=== PATIENT | female | born 1935 | race Caucasian/White ===

== ENCOUNTER 2016-12-25 09:46 | Outpatient (CLI) ==
[2014-02-18 21:38] VITALS: BMI 32.1
== END 2016-12-25 09:47 | disposition home or self-care (01) ==
LOC: RAD 09:46
PROVIDERS: ATTEND Internal Medicine
DX: Z12.31 Encounter for screening mammogram for malignant neoplasm of breast (principal)
CPT/HCPCS: 77067

== ENCOUNTER 2018-02-11 06:48 | Observation (INO) ==
--- NOTE | 2018-02-11 07:25 | ED.PDOC ---
General ED Provider: Dr. RAMYA DODD Chief Complaint: Dizziness Stated Complaint: Profound dizziness with nausea and vomiting. Awakened this AM with Symptoms. Denied Focal Neurological of motor or sensory changes. States room spinning around. No other changes. Time Seen by Physician: 07:15 Mode of Arrival: Ambulance Information Source: Patient, Family Exam Limitations: No limitations Primary Care Provider: LUCIAN RUDD Nursing and Triage Documentation Reviewed and Agree: Yes Does patient meet sepsis criteria?: No System Inflammatory Response Syndrome: Not Applicable Sepsis Protocol: For patient's 13 years and over: Temp is 96.8 and below OR 101 and greater Pulse >90 BPM Resp >20/minute Acutely Altered Mental Status Are patient's symptoms suggestive of a new infection, such as: -Pneumonia -Skin, Soft Tissue -Endocarditis -UTI -Bone, Joint Infection -Implantable Device -Acute Abdominal Infection -Wound Infection -Meningitis -Blood Stream Catheter Infection -Unknown Neurological Complaint Exam - Dizziness Complaint/Exam Last Known Well: Last evening Onset: Sudden Duration: 2 hrs Symptoms Are: Still present Timing: Constant Episodes Lasting: Minutes Initial Severity: Moderate Current Severity: Moderate Character: Reports: Head spinning, Room spinning, Lightheaded, Weak, Dizzy Aggravating: Reports: Position change, Supine to erect, Change in head position Alleviating: Reports: None Associated Signs and Symptoms: Reports: Nausea, Vomiting, Diaphoresis Cardiac Risk Factors: Reports: None CVA Risk Factors: Reports: None Related Surgical History: Reports: None Differential Diagnoses: Labyrinthitis, Meniere's, Metabolic abnormalities Review of Systems - Review Of Systems Constitutional: Reports: No symptoms Eyes: Reports: No symptoms Ears, Nose, Mouth, Throat: Reports: No symptoms Respiratory: Reports: No symptoms Cardiac: Reports: Irregular heart rate GI: Reports: No symptoms : Reports: No symptoms Musculoskeletal: Reports: No symptoms Skin: Reports: No symptoms Neurological: Reports: No symptoms Endocrine: Reports: No symptoms Hematologic/Lymphatic: Reports: No symptoms All Other Systems: Reviewed and Negative Past Medical History - Past Medical History Previously Healthy: Yes Endocrine: Reports: Hypothyroid, Dyslipidemia Cardiovascular: Reports: Hypertension Respiratory: Reports: None Hematological: Reports: None Gastrointestinal: Reports: None Genitourinary: Reports: None Neuro/Psych: Reports: None Musculoskeletal: Reports: None Cancer: Reports: None Last Menstrual Period: UNKNOWN - Surgical History General Surgical History: Reports: None - Family History Family History: Reports: None - Social History Smoking Status: Former smoker Hx Substance Use: No Alcohol Screening: None Lives: Alone - Immunizations Tetanus Shot up to Date: Yes Influenza Vaccine within 12 Months: Yes Physical Exam - Physical Exam Appearance: Well-appearing, No pain distress, Well-nourished Ill-appearing: Moderate Pain Distress: None Eyes: KRISTA, EOMI, Conjunctiva clear ENT: Ears normal, Nose normal, Oropharynx normal Respiratory: Airway patent, Breath sounds clear, Breath sounds equal, Respirations nonlabored Cardiovascular: RRR, Pulses normal, No rub, No murmur GI/: Soft, Nontender, No masses, Bowel sounds normal, No Organomegaly Musculoskeletal: Normal strength, ROM intact, No edema, No calf tenderness Skin: Warm, Dry, Normal color Neurological: Sensation intact, Motor intact, Reflexes intact, Cranial nerves intact, Alert, Oriented Psychiatric: Affect appropriate, Mood appropriate Re-Evaluation - Re-Evaluation Time of Re-Evaluation: 09:15 Status: Improved Vital Signs Stable: Yes Appearance: NAD Lungs: Clear Skin: Warm and Dry Neuro: Alert and Oriented X3 CV: Other (irreg irreg rate) Additional Comments: Dizziness when up Physician Notification - Case Discussed Physician Notified: Dr Rudd Time of Notification: 09:30 (admit on telemetry) Critical Care Note - Critical Care Note Total Time (mins): 60 Course - Course Hematology/Chemistry: 02/11/18 07:05 02/11/18 07:05 Orders, Labs, Meds: Lab Review 02/11/18 02/11/18 02/11/18 06:00 07:05 07:05 WBC 6.48 RBC 3.51 L Hgb 11.0 L Hct 33.9 L MCV 96.6 MCH 31.3 H MCHC 32.4 RDW Coeff of Mookie 13.5 Plt Count 170 Immature Gran % (Auto) 0.3 Neut % (Auto) 59.5 Lymph % (Auto) 31.5 [place] % (Auto) 5.6 Eos % (Auto) 2.5 Baso % (Auto) 0.6 Immature Gran # (Auto) 0.0 Neut # (Auto) 3.9 Lymph # (Auto) 2.0 [place]on # (Auto) 0.4 Eos # (Auto) 0.2 Baso # (Auto) 0.0 ESR 5 Sodium 137.8 Potassium 3.41 L Chloride 105.1 Carbon Dioxide 27.2 Anion Gap 8.91 BUN 25.1 H Creatinine 0.83 Estimated GFR (MDRD) 66.00 BUN/Creatinine Ratio 30.24 Glucose 114.5 H Calcium 10.05 Total Bilirubin 0.53 AST 23.3 ALT 15.6 Alkaline Phosphatase 53.2 Total Protein 6.94 Albumin 4.14 Globulin 2.80 Albumin/Globulin Ratio 1.47 TSH 2.500 Orders Category Date Time Status EKG-(ED ONLY) Stat CARDIO 02/11/18 07:28 Completed IV [ED IV/MEDIPORT/POWERPORT] .ONCE EMERGENCY 02/11/18 07:28 Active CBC W/ AUTO DIFF Stat LAB 02/11/18 07:05 Completed CMP [COMPREHENSIVE METABOLIC PANEL] Stat LAB 02/11/18 07:05 Completed ESR Stat LAB 02/11/18 07:05 Completed TSH [THYROID STIMULATING HORMONE] Stat LAB 02/11/18 06:00 Received UA [URINALYSIS C & S IF INDICATED] Stat LAB 02/11/18 07:29 Uncollected 0.9 % Sodium Chloride [Saline Flush] MEDS 02/11/18 07:28 Active 1 syr IVF PRN PRN Diphenhydramine Inj [Benadryl] MEDS 02/11/18 07:32 Discontinued 25 mg IVP ONCE STA Famotidine Inj [Pepcid] MEDS 02/11/18 07:31 Discontinued 20 mg IVP ONCE STA Ondansetron HCl/Pf [Zofran 4 mg/2 ml] MEDS 02/11/18 07:31 Discontinued 4 mg IVP ONCE STA Ringers Lactated Solution [Lactated Ringers] 1,000 ml MEDS 02/11/18 07:31 Active IV BOLUS CHEST, 1V AP ONLY Stat RADS 02/11/18 07:[address] HEAD W/O CONTRAST Stat RADS 02/11/18 07:28 Completed Medications Generic Name Dose Route Start Last Admin Trade Name Freq PRN Reason Stop Dose Admin Sodium Chloride 1 syr 02/11/18 07:28 02/11/18 07:43 Saline Flush IVF 1 syr PRN PRN Administration To flush IV Discontinued Medications Generic Name Dose Route Start Last Admin Trade Name Freq PRN Reason Stop Dose Admin Diphenhydramine HCl 25 mg 02/11/18 07:32 02/11/18 07:42 Benadryl IVP 02/11/18 07:33 25 mg ONCE STA Administration Famotidine 20 mg 02/11/18 07:31 02/11/18 07:43 Pepcid IVP 02/11/18 07:32 20 mg ONCE STA Administration Lactated Ringer's 1,000 mls @ 500 mls/hr 02/11/18 07:31 02/11/18 07:41 Lactated Ringers IV 02/11/18 09:30 500 mls/hr BOLUS STA Administration Ondansetron HCl 4 mg 02/11/18 07:31 02/11/18 07:41 Zofran 4 Mg/2 Ml IVP 02/11/18 07:32 4 mg ONCE STA Administration Vital Signs: Temp Pulse Resp BP Pulse Ox 02/11/18 06:49 96.6 F L 55 L 20 162/62 H 98 Departure - Departure Time of Disposition: 09:30 Disposition: ADMITTED INPATIENT Discharge Problem: Acute vertigo with vomiting and inability to stand, Vomiting, Atrial fibrillation with controlled ventricular rate Instructions: Vertigo (DC), A-fib (Atrial Fibrillation) (ED) Condition: Fair Pt referred to PMD for follow-up: Yes (Dr Rudd) IPMP verified?: No Additional Instructions: ADMIT ON TELEMETRY SERVICE DR RUDD Allergies/Adverse Reactions: Allergies celecoxib [From Celebrex] Adverse Reaction (Verified 02/11/18 06:57) tramadol HCl [From Ultram] Adverse Reaction (Verified 02/11/18 06:57) LIPS SWELL Home Medications: Ambulatory Orders Atorvastatin Calcium [Lipitor] 40 mg PO DAILY 12/15/12 Clopidogrel Bisulfate [Plavix] 75 mg PO DAILY 12/15/12 Gabapentin 300 mg PO BEDTIME 12/15/12 Levothyroxine Sodium [Tirosint] 100 mcg PO DAILY 12/15/12 Lisinopril [Zestril] 20 mg PO BID 12/15/12 Hydrocodone/Acetaminophen [Hydrocodon-Acetaminophen 5-325] 1 tab PO Q12H PRN 09/26 Pantoprazole Sodium [Protonix] 40 mg PO DAILY 02/11/18 Sertraline HCl [Zoloft] 50 mg PO DAILY 02/11/18 Tizanidine HCl [Zanaflex] 4 mg PO BID PRN 02/11/18 Disposition Discussed With: Patient, Family
[2018-02-11] MEDS ORDERED: LACTATED RINGERS 1,000 ML IV STA (07:31)
[2018-02-11] MEDS ORDERED: ZOFRAN 4 MG/2 ML IVP STA (07:31)
[2018-02-11] MEDS ORDERED: PEPCID IVP STA (07:31)
[2018-02-11] MEDS ORDERED: BENADRYL IVP STA (07:32)
--- NOTE | 2018-02-11 08:12 | DI ---
EXAM: Single view of the chest HISTORY: Dizziness. COMPARISON: None FINDINGS: Cardiomediastinal silhouette is normal. Calcified left hilar lymph node is present. There is no pneumothorax or effusion. There is no consolidation, nodule or mass. There is scattered dege nerative disease of the spine. IMPRESSION: No acute cardiopulmonary process or consolidation.
--- NOTE | 2018-02-11 08:13 | CT ---
EXAM: CT of the head without contrast History: Dizziness, nausea and vomiting. Technique: Multiplanar CT images through the head were obtained without the administration of IV con trast Findings: Mild mucosal thickening of the paranasal sinuses. Mastoid air cells are clear in general. No acute calvarial abnormalities. Intracranially the ventricular and cisternal spaces are normal in size, shape and configuration for a patient of this age. No dominant mass or midline shift. No hydrocephalous. No acute intracranial hemorrhage or abnormal extraaxial fluid collections. Impression: 1. No acute intracranial process. 2. Mild sinus disease
[2018-02-11] MEDS ORDERED: ZOFRAN 4 MG/2 ML IVP PRN (09:43)
[2018-02-11] MEDS ORDERED: ANTIVERT PO PRN (09:50)
[2018-02-11] MEDS ORDERED: NON-FORMULARY MEDICATION (Clopidogrel Bisulfate [Plavix] 75 MG) PO SCH (10:00)
[2018-02-11] MEDS ORDERED: NON-FORMULARY MEDICATION (Levothyroxine Sodium [Tirosint] 100 MCG) PO SCH (10:00)
[2018-02-11 10:48] VITALS: BMI 25.9
[2018-02-11] MEDS: SODIUM CHLORIDE 0.9%-KCL 20 MEQ 1,000 ML IV SCH ×2 (10:59→20:28)
[2018-02-11] MEDS ORDERED: PLAVIX PO STA (11:42)
[2018-02-11] MEDS: SYNTHROID PO SCH (12:04)
[2018-02-11] MEDS: PROTONIX PO SCH (12:04)
[2018-02-11] MEDS: LOVENOX SUBCUT SCH (12:05)
[2018-02-11] MEDS ORDERED: NORCO 5-325 PO PRN (18:54)
[2018-02-11] MEDS ORDERED: NEURONTIN PO SCH (21:00)
[2018-02-11] MEDS: ZESTRIL PO SCH (21:23)
[2018-02-12] MEDS: SODIUM CHLORIDE 0.9%-KCL 20 MEQ 1,000 ML IV SCH (04:02)
[2018-02-12] MEDS: PROTONIX PO SCH (06:26)
[2018-02-12] MEDS: SYNTHROID PO SCH (06:26)
[2018-02-12] MEDS ORDERED: ZOLOFT PO SCH (09:00)
[2018-02-12] MEDS ORDERED: NON-FORMULARY MEDICATION (Atorvastatin Calcium [Lipitor] 40 MG) PO SCH (09:00)
[2018-02-12] MEDS ORDERED: LIPITOR PO SCH (09:00)
[2018-02-12] MEDS ORDERED: PLAVIX PO SCH (09:00)
--- NOTE | 2018-02-12 09:08 | PCM.PROG ---
Attending Provider: ATTENDING PROVIDER: Dr. LUCIAN RUDD This patient is seen with Simi Ibarra, Nurse Practitioner. DATE OF SERVICE: 02/12/18 SUBJECTIVE: This 82 year old WHITE/ F was hospitalized 02/11/18. The patient is sitting in chair resting comfortably. She states dizziness is better as well as nausea today. No vomiting since admission. REVIEW OF SYSTEMS: CONSTITUTIONAL: Weakness. No night sweats. No malaise, lethargy. No fever or chills. HEENT: Eyes: No visual changes. No eye pain. No eye discharge. ENT: No runny nose. No epistaxis. No sinus pain. No odynophagia. No congestion. RESPIRATORY: No cough, no congestion. No hemoptysis. No shortness of breath. CARDIOVASCULAR: No angina symptoms. No CHF symptoms. No atypical chest pain for CAD. No palpitations. No orthopnea.. GASTROINTESTINAL: No abdominal pain. No nausea or vomiting. No diarrhea or constipation. No hematemesis. No hematochezia. GENITOURINARY: No urgency. No frequency. No dysuria. No hematuria. No obstructive symptoms. No discharge. No pain. No significant abnormal bleeding. MUSCULOSKELETAL: No musculoskeletal pain; no joint swelling. NEUROLOGICAL: Awake, alert, oriented to time, place and person. Positive for dizziness. No headache. No neck pain. No syncope. No seizures. PSYCHIATRIC: Not anxious. No depression. No suicidal thoughts. No homicidal thoughts. SKIN: No rash. No lesions. No wounds. ENDOCRINE: No unexplained weight loss. No weight gain. HEMATOLOGIC/LYMPHATIC: No anemia. No purpura. No petechiae. No prolonged or excessive bleeding. No palpable lymph nodes. PHYSICAL EXAMINATION: GENERAL: The patient is awake, alert and oriented, sitting in chair in no distress. VITAL SIGNS: Temperature 98.9 F, Pulse 60, Respiratory Rate 18, BP 105/61, Pulse Ox 93% HEENT: Head normocephalic, atraumatic. Eyes: Extraocular muscles are intact. Pupils are equal, round and reactive to light and accommodation. Ears: No lesions. Nose appeared normal. Throat: No exudate or erythema. NECK: Supple. No JVD, no carotid bruit. No lymphadenopathy or thyromegaly. LUNGS: Diminished breath sounds. Clear to auscultation. Percussion note normal. Chest symmetrical. HEART: Regular heart rate. S1, S2, no S3. No murmurs. No cyanosis or clubbing. No ascites. Pulses: Dorsalis pedis and posterior tibial pulses +1 to +2 both sides. ABDOMEN: Soft. Non-tender. Bowel sounds active. No CVA tenderness. No mass felt. EXTREMITIES: No edema. Full range of motion of all extremities, equal. NEUROLOGIC: No focal deficit. Cranial nerves II through XII are grossly intact. No headache, no double vision or headache. SKIN: Not dry. Intact. Turgor-normal. LYMPHATIC: No palpable lymph nodes/no lymphedema. MUSCULOSKELETAL: Normal joints with no swelling. Muscle tone is normal. LAB REVIEW: 02/12/18 05:00 02/12/18 05:00 02/12/18 05:00: Sodium 138.2, Potassium 4.20, Chloride 110.1 H, Carbon Dioxide 27.5, Anion Gap 4.80, BUN 18.8 H, Creatinine 0.86, Estimated GFR (MDRD) 63.00, BUN/Creatinine Ratio 21.86, Glucose 80.0, Calcium 9.19, Total Bilirubin 0.32, AST 21.9, ALT 14.4, Alkaline Phosphatase 42.5 L, Total Protein 5.56 L, Albumin 3.15 L, Globulin 2.41, Albumin/Globulin Ratio 1.30 02/12/18 05:00: WBC 5.49, RBC 3.17 L, Hgb 10.0 L, Hct 31.0 L, MCV 97.8, MCH 31.5 H, MCHC 32.3, RDW Coeff of Mookie 13.5, Plt Count 146, Immature Gran % (Auto) 0.2, Neut % (Auto) 45.4, Lymph % (Auto) 43.7, Wheeler % (Auto) 6.7, Eos % (Auto) 3.3, Baso % (Auto) 0.7, Immature Gran # (Auto) 0.0, Neut # (Auto) 2.5, Lymph # ( Auto) 2.4, Wheeler # (Auto) 0.4, Eos # (Auto) 0.2, Baso # (Auto) 0.0 02/11/18 11:10: Urine Color Light, Urine Clarity Slightly, Urine pH 5.5, Ur Specific [place] 1.015, Urine Protein Negative, Urine Glucose (UA) Negative, Urine Ketones Negative, Urine Blood Negative, Urine Nitrite Negative, Urine Bilirubin Negative, Urine Urobilinogen 0.2, Ur Leukocyte Esterase 2+, Urine Microscopic WBC 0-2, Ur Squamous Epith Cells 2-5, Calcium Oxalate Crystal 1+, Urine Bacteria 1+ 02/11/18 07:05: Sodium 137.8, Potassium 3.41 L, Chloride 105.1, Carbon Dioxide 27.2, Anion Gap 8.91, BUN 25.1 H, Creatinine 0.83, Estimated GFR (MDRD) 66.00, BUN/Creatinine Ratio 30.24, Glucose 114.5 H, Calcium 10.05, Total Bilirubin 0.53 , AST 23.3, ALT 15.6, Alkaline Phosphatase 53.2, Total Protein 6.94, Albumin 4.14, Globulin 2.80, Albumin/Globulin Ratio 1.47 02/11/18 07:05: ESR 5 02/11/18 06:00: TSH 2.500 ASSESSMENT: 1. Vertigo. 2. One episode of atrial fibrillation. The patient in sinus rhythm now. 3. Dyslipidemia. PLAN: 1. Check for recent carotid scan and do if not done. 2. Decrease IV fluids to 75 mL/hr. 3. Carotid scan. Plan and coordination of the patient's care discussed in the presence of Fine Unhairer and nurse. CONDITION: Stable SCRIBED BY: CULLEN GILL Dragline Operator Helper scribed while in presence of service performed by Dr. Rudd/Simi Ibarra APRN on 02/12/18 (0800)
--- NOTE | 2018-02-12 09:37 | HP ---
DATE OF SERVICE: 02/11/18 HISTORY OF PRESENT ILLNESS: This is an 82-year-old white female who presented to the emergency room with dizziness, vertigo, nausea and vomiting. 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 Nam REVIEW OF SYSTEMS: CONSTITUTIONAL: Fatigue. No night sweats. No malaise, lethargy. No fever or chills. HEENT: Eyes: No visual changes. No eye pain. No eye discharge. ENT: No runny nose. No epistaxis. No sinus pain. No sore throat. No odynophagia. No ear pain. No congestion. RESPIRATORY: No cough, no congestion. No hemoptysis. No shortness of breath. CARDIOVASCULAR: No angina symptoms. No CHF symptoms. No atypical chest pain for CAD. No palpitations. No PND. No orthopnea. GASTROINTESTINAL: Nausea, vomiting. No abdominal pain. No diarrhea or constipation. No hematemesis. No hematochezia. GENITOURINARY: No urgency. No frequency. No dysuria. No hematuria. No obstructive symptoms. No discharge. No pain. No significant abnormal bleeding. MUSCULOSKELETAL: No musculoskeletal pain. No joint swelling. No arthritis. NEUROLOGICAL: Positive for dizziness. No headache. No neck pain. No syncope. No seizures. PSYCHIATRIC: Not anxious. No depression. No suicidal thoughts. No homicidal thoughts. SKIN: No rash. No lesions. No wounds. ENDOCRINE: No unexplained weight loss. No weight gain. HEMATOLOGIC/LYMPHATIC: No anemia. No purpura. No petechiae. No prolonged or excessive bleeding. No palpable lymph nodes. PERSONAL/FAMILY/SOCIAL HISTORY: The patient is , lives alone. No alcohol or ilicit drug use. She is a nonsmoker. MEDICATIONS: (HOME) Clopidogrel 75 mg p.o. daily Atorvastatin 40 mg p.o. daily Gabapentin 300 mg p.o. bedtime Lisinopril 20 mg p.o. b.i.d. Levothyroxine 100 mcg p.o. daily Hydrocodone/Acetaminophen one tab p.o. q.12hr p.r.n. Tizanidine 4 mg p.o. b.i.d. p.r.n. Sertraline 50 mg p.o. daily Pantoprazole 40 mg p.o. daily ALLERGIES: CELECOXIB, TRAMADOL PHYSICAL EXAMINATION: HEENT: Head normocephalic, atraumatic. Eyes: Extraocular muscles are intact. Pupils are equal, round and reactive to light and accommodation. Ears: No lesions. Nose appeared normal. Throat: No exudate or erythema. NECK: Supple. No JVD, no carotid bruit. No lymphadenopathy or thyromegaly. LUNGS: Diminshed breath sounds bilaterally. Clear to auscultation. Percussion note normal. Chest symmetrical. HEART: Irregular heart rate. S1, S2, no S3. No murmurs. No cyanosis or clubbing. No ascites. Pulses: Dorsalis pedis and posterior tibial pulses +1 to +2 bilaterally. ABDOMEN: Soft. Nontender. Bowel sounds active. No CVA tenderness. No mass felt. EXTREMITIES: No edema. Full range of motion of all extremities, equal. NEUROLOGIC: No focal deficit. Cranial nerves II through XII are grossly intact. No headache, no double vision or headache. SKIN: Not dry. Intact. Turgor - normal. LYMPHATIC: No palpable lymph nodes/no lymphedema. MUSCULOSKELETAL: Normal joints with no swelling. Muscle tone is normal. EKG reveals atrial fibrillation with rate in the 60s; according to ER physician , this is new onset. ASSESSMENT: 1. NEW ONSET ATRIAL FIBRILLATION 2. VERTIGO 3. NAUSEA/VOMITING 4. DEHYDRATION 5. HYPERTENSION 6. DYSLIPIDEMIA 7. INSOMNIA 8. GERD 9. ANEMIA 10. DEPRESSION 11. CHRONIC KIDNEY DISEASE 12. NEUROPATHY PLAN: 1. We will admit. 2. Zofran 4 mg q.6hr IV. 3. Continue home medications. 4. Coverage with Lovenox 50 mg subQ q.12hr. 5. Routine telemetry orders. 6. CBC, CMP daily. 7. EKG. 8. Chest x-ray. 9. UA. 10. Antivert 25 mg p.o. t.i.d. p.r.n. 11. Valium 2 mg p.o. t.i.d. p.r.n. for nausea. 12. CT of the brain. 13. Will follow closely. TIME SPENT: More than 70 minutes. [facility]
[2018-02-12] MEDS: LOVENOX SUBCUT SCH (09:50)
[2018-02-12] MEDS: ZESTRIL PO SCH (09:50)
--- NOTE | 2018-02-12 14:19 | CM.DICTOOL ---
ADMISSION: 02/11/18 09:55 DISCHARGE: 02/12/18 DATE OF SERVICE: 02/12/18 FINAL DIAGNOSIS VERTIGO WITH N/V AND INABILITY TO STAND UPRIGHT LABYRINTHITIS RECENT SKIN CANCER EXCISION (BASAL CELL CARCINOMA, NOSE) LANDRY'S ESOPHAGUS HYPERTENSION DYLSIPIDEMIA CKD, STAGE 2 ANEMIA CAROTID STENOSIS NEUROPATHY HYPOTHYROIDISM INSOMNIA GERD DEJENERATIVE JOINT DISEASE OSTEOARTHRITIS-KNEES DEPRESSION ABLATION BASAL CELL CANCER EXCISED, NOSE TOTAL LEFT KNEE ARTHROPLASTY RIGHT CAROTID ENDARTERECTOMY BY DR. CROWE LEFT HIP FRACTURE AND SURGICAL REPAIR HYSTERECTOMY BREAST CANCER LAST VITALS Temp Pulse Resp BP Pulse Ox 96 F L 83 22 132/72 92 L 02/12/18 10:00 02/12/18 10:00 02/12/18 10:00 02/12/18 10:00 02/12/18 10:00 TAKE THESE MEDICATIONS AT HOME Atorvastatin Calcium (Lipitor) 40 mg PO DAILY [facility] Last Admin: 02/12/18 09:50 Dose: 40 mg Clopidogrel Bisulfate (Plavix) 75 mg PO DAILY [facility] Last Admin: 02/12/18 09:49 Dose: 75 mg Gabapentin (Neurontin) 300 mg PO BEDTIME [facility] Hydrocodone Bitart/Acetaminophen ([place] 5-325) 1 tab PO Q12H PRN PRN Reason: Pain Last Admin: 02/11/18 22:00 Dose: 1 tab Levothyroxine Sodium (Synthroid) 100 mcg PO QDAC [facility] Last Admin: 02/12/18 06:26 Dose: 100 mcg Lisinopril (Zestril) 20 mg PO BID [facility] Last Admin: 02/12/18 09:50 Dose: 20 mg Meclizine HCl (Antivert) 25 mg PO BID PRN #30 PRN Reason: Vertigo Last Admin: 02/11/18 12:04 Dose: 25 mg Ondansetron HCl (Zofran 4 Mg/2 Ml) 4 mg IVP Q6H PRN #15 PRN Reason: Nausea / Vomiting Pantoprazole Sodium (Protonix) 40 mg PO QDAC [facility] Last Admin: 02/12/18 06:26 Dose: 40 mg Sertraline HCl (Zoloft) 50 mg PO DAILY [facility] Last Admin: 02/12/18 09:50 Dose: 50 mg Tizanidine Hcl (Zanaflex) 4 mg PO BID PRN ALLERGIES celecoxib [From Celebrex] Adverse Reaction (Verified 02/11/18 06:57) tramadol HCl [From [facility]] Adverse Reaction (Verified 02/11/18 06:57) LIPS SWELL NEW PRESCRIPTIONS: Meclizine HCl [Antivert] 25 mg PO TID PRN #30 tablet 02/12/18 Ondansetron [Zofran Odt] 4 mg PO Q6H PRN #15 tab.rapdis 02/12/18 SMOKING: FORMER SMOKER NONE NOW DISEASE SPECIFIC EDUCATION: VERTIGO N/V HOME MEDICATIONS NEW PRESCRIPTIONS FOLLOW UP LAB REVIEW: 02/12/18 05:00 02/12/18 05:00 02/12/18 05:00: Sodium 138.2, Potassium 4.20, Chloride 110.1 H, Carbon Dioxide 27.5, Anion Gap 4.80, BUN 18.8 H, Creatinine 0.86, Estimated GFR (MDRD) 63.00, BUN/Creatinine Ratio 21.86, Glucose 80.0, Calcium 9.19, Total Bilirubin 0.32, AST 21.9, ALT 14.4, Alkaline Phosphatase 42.5 L, Total Protein 5.56 L, Albumin 3.15 L, Globulin 2.41, Albumin/Globulin Ratio 1.30 02/12/18 05:00: WBC 5.49, RBC 3.17 L, Hgb 10.0 L, Hct 31.0 L, MCV 97.8, MCH 31.5 H, MCHC 32.3, RDW Coeff of Mookie 13.5, Plt Count 146, Immature Gran % (Auto) 0.2, Neut % (Auto) 45.4, Lymph % (Auto) 43.7, [place] % (Auto) 6.7, Eos % (Auto) 3.3, Baso % (Auto) 0.7, Immature Gran # (Auto) 0.0, Neut # (Auto) 2.5, Lymph # ( Auto) 2.4, [place] # (Auto) 0.4, Eos # (Auto) 0.2, Baso # (Auto) 0.0 PLAN: DISCHARGE HOME TODAY, 02/12/[address] RUDD ON 02/19/18 AT 11:45 A.M. RESUME YOUR HOME MEDICATIONS PER LIST PROVIDED BY THE NURSING STAFF NEW PRESCRIPTIONS ONDANSETRON HCL (ZOFRAN) 4 MG, TAKE ONE TABLET BY MOUTH EVERY MECLIZINE HCL (ANTIVERT) 25 MG, TAKE ONE TABLET BY MOUTH TWICE DAILY NEEDED FOR DIZZINESS ACTIVITY GET PLENTY OF REST AT HOME. GRADUALLY INCREASE YOUR ACTIVITY LEVEL ACCORDING TO YOUR TOLERATION DIET HEALTHY HEART TOLERATED SUMMARY THE PATIENT IS ALERT AND ORIENTED X3. SHE CURRENTLY RESIDES AT HOME ALONE. PRIOR TO THIS HOSPITALIZATION, SHE HAS BEEN INDEPENDENT WITH ADL'S. SHE HAS A WALKING CANE FOR ASSISTANCE WITH AMBULATING. SHE HAS NO HOME HEALTH OR HOMEMAKING SERVICES. SHE DESIRES TO RETURN HOME AT DISCHARGE. THE SKIN TURGOR IS INTACT AND WITHOUT DECUBITUS ULCERS. SHE HAS A NEWLY SUTURED AREA AT THE BRIDGE TO THE TIP OF HER NOSE VERTICALLY WHERE SHE RECENTLY HAD A SKIN CANCER EXCISED. THE INCISION LINE IS WELL APPROXIMATED AND WITHOUT DRAINAGE OR ANY SIGNS/SYMPTOMS OF INFECTION. MS. GOINS TELLS US THIS MORNING THAT HER VERTIGO HAS COMPLETELY SUBSIDED. SHE ALSO SAYS SHE NO LONGER FEELS NAUSEATED AND HAS BEEN ABLE TO EAT. SHE HAS BEEN AMBULATORY IN THE HALLS WITH SUPERVISION ONLY. HER GAIT IS STEADY. SHE HAS VERBALIZED HER STRONG DESIRE TO BE DISCHARGED TODAY. WE OBTAINED COPIES OF A RECENT CAROTID STUDY COMPLETED BY DR. CONTRERAS, VASCULAR ; [facility]. THE STUDIES INDICATED LESS THAN 50% STENOSIS OF THE RIGHT AND LEFT ICAs AND ANTEGRADE FLOW TO THE VERTEBRALS. HER CT OF THE HEAD WITHOUT CONTRAST WAS UNREMARKABLE WITH THE EXCEPTION OF SOME MILD SINUS DISEASE. CXR ALSO SHOWED NO ACUTE CARDIOPULMONARY PROCESS. LABS WERE ACCEPTABLE. VITAL SIGNS HAVE BEEN WELL WITHIN ACCEPTABLE RANGES. SATURATIONS HAVE BEEN 93% ON ROOM AIR. WE ARE AGREEABLE FOR THE DISCHARGE TODAY. THE PATIENT WILL RECEIVE PRESCRIPTIONS FOR MECLIZINE PRN AND ONDANSETRON PRN. SHE WILL FOLLOW UP IN THE OFFICE ON 02/19/18 AT 11:45 A.M. SHE IS MADE AWARE THAT IF SHE HAS FURTHER PROBLEMS, SHE SHOULD PHONE THE OFFICE; OR IF SHE FEELS IT EMERGENT, GO DIRECTLY TO THE EMERGENCY ROOM. CURRENT CODE STATUS FULL CODE YAMINI BOJORQUEZ APRN LUCIAN RUDD M.D.
[2018-02-12 14:22] VITALS: BP 91/50; TEMP 97.9
[2018-02-12] MEDS ORDERED: NEURONTIN PO SCH (21:00)
--- NOTE | 2018-02-16 14:39 | PN ---
DATE OF SERVICE: 02/12/18 - DISCHARGE NOTE SUBJECTIVE: The patient was seen and examined with the nurse practitioner. The patient's vertigo has subsided. Neurologic status normal. Cardiovascular status stable. Discharged home on Antivert and Valium. Condition is stable. TIME SPENT: More than 30 minutes. Plan and coordination of the patient's care discussed in the presence of nurse. COURTNEY
--- NOTE | 2018-02-16 14:41 | PN ---
CODING FOR BILLIN02/11/18 ADMISSION DAY - LEVEL 5 - OBSERVATION 02/12/18 DISCHARGE MTDD
--- NOTE | 2018-02-17 14:44 | DS ---
DATE OF SERVICE: 02/12/18 FINAL DIAGNOSIS: 1. VERTIGO WITH N/V AND INABILITY TO STAND UPRIGHT 2. LABYRINTHITIS 3. RECENT SKIN CANCER EXCISION (BASAL CELL CARCINOMA, NOSE) 4. LANDRY'S ESOPHAGUS 5. HYPERTENSION 6. DYSLIPIDEMIA 7. CKD, STAGE 2 8. ANEMIA 9. CAROTID STENOSIS 10. NEUROPATHY 11. HYPOTHYROIDISM 12. INSOMNIA 13. GERD 14. DEGENERATIVE JOINT DISEASE 15. OSTEOARTHRITIS KNEES 16. DEPRESSION 17. ABLATION 18. BASAL CELL CANCER EXCISED, NOSE 19. TOTAL LEFT KNEE ARTHROPLASTY 20. RIGHT CAROTID ENDARTERECTOMY BY DR. CROWE 21. LEFT HIP FRACTURE AND SURGICAL REPAIR 22. HYSTERECTOMY 23. BREAST CANCER DISCHARGE INSTRUCTIONS: Followup appointment with Dr. Manzanares on 02/19/18 at 11:45 a.m. MEDICATIONS AT DISCHARGE: Atorvastatin (Lipitor) 40 mg p.o. daily MONICA Clopidogrel (Plavix) 75 mg p.o. daily MONICA Gabapentin (Neurontin) 300 mg p.o. bedtime MONICA Hydrocodone/Acetaminophen one tab p.o. q.12h p.r.n. Levothyroxine (Synthroid) 100 mcg p.o.q .d a.c. MONICA Lisinopril (Zestril) 20 mg p.o. b.i.d. MONICA Meclizine (Antivert) 25 mg p.o. b.i.d. p.r.n. Ondansetron (Zofran) 4 mg IVP q.6h p.r.n. Pantoprazole (Protonix) 40 mg p.o. q.d a.c. MONICA Sertraline (Zoloft) 50 mg p.o. daily MONICA Tizanidine (Zanaflex) 4 mg p.o. b.i.d. p.r.n. NEW PRESCRIPTIONS: Ondansetron HCL (Zofran) 4 mg take one tablet by mouth Meclizine HCL (Antivert) 25 mg take one tablet by mouth twice daily as needed for dizziness DIET INSTRUCTIONS: Healthy Heart as tolerated. ACTIVITY: Get plenty of rest at home. Gradually increase your activity level according to your toleration. SMOKING: Former smoker, none now DISEASE SPECIFIC EDUCATION: Vertigo N/V Home medications New prescriptions Follow up HOSPITAL COURSE: This is an 82-year-old white female who presented to the emergency room with vertigo, inability to stand up right. She had had some vomiting. CT of the brain was normal. She was given Antivert 25 mg p.o. along with Zofran IV. Her potassium was a little bit low on admission at 3.2. She was started on IV fluids , NS with 20 mEq of potassium a5 125 cc/hr which this morning is normal. It is up to 4.2. After the administration of Antivert and Zofran, the patient has not had any vomiting since admission. Again, her hypokalemia has resolved. Kidney function is almost normal with BUN 18. Today, she woke up, is not having any dizziness at all. No nausea. She has been up and about walking around on her own. Vital signs are stable. Temperature 96, heart rate 83, respiratory rate 22 , BP 132/72, pulse ox 92%. She has a history of carotid stenosis and she already sees Dr. Mccabe, had a carotid scan in November, which was normal. They are just monitoring so there is no reason for her vertigo other than labyrinthitis. Again, she was up and about and stable today. Labs are improved. She will be given a prescription of Zofran 4 mg q.6hr p.r.n. as well as Antivert 25 mg t.i.d. p.r.n. p.o. if the vertigo returns. She has been instructed to change positions slowly. She had a PT evaluation and there was no need. We will followup with her in the office next week. TIME SPENT: More than 60 minutes. COURTNEY
== END 2018-02-12 14:38 | disposition home or self-care (01) ==
LOC: ED 06:48 → INTOOBSV 09:55 → MEDSURG B 09:55
PROVIDERS: ADMIT Internal Medicine; ATTEND Internal Medicine
DX: R11.2 Nausea with vomiting, unspecified (principal); R53.1 Weakness; R61 Generalized hyperhidrosis; E78.5 Hyperlipidemia, unspecified; E86.0 Dehydration; E03.9 Hypothyroidism, unspecified; I48.91 Unspecified atrial fibrillation; I10 Essential (primary) hypertension; I65.29 Occlusion and stenosis of unspecified carotid artery; G47.00 Insomnia, unspecified; G62.9 Polyneuropathy, unspecified; H83.09 Labyrinthitis, unspecified ear; N18.9 Chronic kidney disease, unspecified; N18.2 Chronic kidney disease, stage 2 (mild); M19.90 Unspecified osteoarthritis, unspecified site; M17.0 Bilateral primary osteoarthritis of knee; K21.9 Gastro-esophageal reflux disease without esophagitis; D64.9 Anemia, unspecified; F32.9 Major depressive disorder, single episode, unspecified
CPT/HCPCS: 36415; 80053; 81001; 82962; 84443; 85025; 85651; 87086; 93005; 93010; 99284

== ENCOUNTER 2020-12-11 13:58 | Observation (INO) ==
--- NOTE | 2020-12-11 14:34 | ED.PDOC ---
General ED Provider: Dr. RAMYA DODD Chief Complaint: Fall Stated Complaint: Fell at the thrift store attempting to get on the bus when her cane slipped in gravel. Injured back of head, rt shoulder and low back-lt pelvic- hip region. Has bleeding posterior scalp with dressing in place-Controlled Time Seen by Provider: 12/11/20 14:10 Mode of Arrival: Ambulance Information Source: Patient Exam Limitations: Clinical condition Primary Care Provider: LUCIAN RUDD Nursing and Triage Documentation Reviewed and Agree: Yes Does patient meet sepsis criteria?: No System Inflammatory Response Syndrome: Not Applicable Sepsis Protocol: For patient's 13 years and over: Temp is 96.8 and below OR 101 and greater Pulse >90 BPM Resp >20/minute Acutely Altered Mental Status Are patient's symptoms suggestive of a new infection, such as: -Pneumonia -Skin, Soft Tissue -Endocarditis -UTI -Bone, Joint Infection -Implantable Device -Acute Abdominal Infection -Wound Infection -Meningitis -Blood Stream Catheter Infection -Unknown Neurological Complaint Exam Headache Complaint/Exam Onset: Sudden Duration: after falling and striking her head. Is immobilized with C collar Symptoms Are: Still present Timing: Constant Episodes Lasting: Minutes Worst Headache Ever: No Initial Severity: Moderate Current Severity: Moderate Location: Parietal and Occipital Character: Reports Sharp and Throbbing Aggravating: Reports None Alleviating: Reports Rest Associated Signs and Symptoms: Reports Dizziness, Neck pain and Neck stiffness; Denies Seizure, Nausea, Vomiting, Sinus pressure, Fever, Decreased LOC or Visual changes Related History: Denies Similar episode Related Surgical History: Reports None SAH Risk Factors: Reports None Meningitis Risk Factors: Reports None SDH Risk Factors: Reports Elderly and Recent trauma Temporal Arteritis Risk Factors: Reports None Fundoscopic Exam: Present Normal Findings Papilledema Present: No Temporal Artery Tenderness: Present None Sinus Tenderness: Present None TMJ Tenderness: Present None Meningeal Signs Positive: No Pain on Passive Flexion-Positive Kernig's: No ROM Limited In: Rotation right and Rotation left Focal Weakness: Present None Focal Sensory Loss: Present None Gait: Unable Nystagmus Present: No Gag Reflex Present: Yes [id number]: Normal Findings Babinski Sign: Negative Right and Negative Left Differential Diagnoses: Other (CLosed head trauma, Occipital Contusion ) Review of Systems Review Of Systems Constitutional: Reports Weakness Eyes: Reports No symptoms Ears, Nose, Mouth, Throat: Reports No symptoms Respiratory: Reports No symptoms Cardiac: Reports No symptoms GI: Reports No symptoms : Reports No symptoms Musculoskeletal: Reports No symptoms Skin: Reports No symptoms Neurological: Reports No symptoms Endocrine: Reports No symptoms Hematologic/Lymphatic: Reports No symptoms All Other Systems: Reviewed and Negative PFSH Female Reproductive History Menstrual Hx Hysterectomy: Yes (PARTIAL) Hx Tubal Ligation: No Physical Exam Physical Exam Appearance: Reports Ill-appearing Ill-appearing: Moderate Pain Distress: Moderate Eyes: Reports KRISTA, EOMI, Right pupil size and Left pupil size ENT: Reports Ears normal, Nose normal and Oropharynx normal Neck: Supple Respiratory: Reports Airway patent, Breath sounds clear and Breath sounds equal Cardiovascular: Reports RRR, Pulses normal, No rub and No murmur GI/: Reports Soft, Nontender, No masses, Bowel sounds normal and No Organomegaly Musculoskeletal: Reports Normal strength, ROM intact, No edema and No calf tenderness Skin: Reports Warm, Dry and Normal color Neurological: Reports Sensation intact, Motor intact, Reflexes intact, Cranial nerves intact, Alert and Oriented Psychiatric: Reports Affect appropriate and Mood appropriate NIH Stroke Scale 1a. Level of Consciousness: 0=Alert and keenly responsive 1b. Level of Consciousness Questions: 0=Answers correctly to two questions 1c. Level of Consciousness Commands: 0=Performs two tasks correctly 2. Best Gaze: 0=Normal 3. Visual: 0=No visual loss 4. Facial Palsy: 0=Normal 5a. Motor Left Arm: 0=No drift,arm holds 90 degrees for 10 sec., leg 30 degrees for 5 sec. 5b. Motor Right Arm: 0=No drift,arm holds 90 degrees for 10 sec., leg 30 degrees for 5 sec. 6a. Motor Left Le=No drift,arm holds 90 degrees for 10 sec., leg 30 degrees for 5 sec. 6b. Motor Right Le=No drift,arm holds 90 degrees for 10 sec., leg 30 degrees for 5 sec. 7. Limb Ataxia: 0=Absent 8. Sensory: 0=Normal 9. Best Language: 0=No aphasia 10. Dysarthria: 0=Normal 11. Extincion and Inattention: 0=Normal Stroke Scale Total: 0 Interpretation Radiology Interpretation Radiology Interpretation By: Radiologist Xray Comments: CT head- Normal, Cervical spine-no fracture. L_S Transve Sacral 4 fractur Radiology Interpretation By: Radiologist Exam Interpreted: CXR (WNL) EKG Interpretation Time of EKG #1: 15:00 Rate: Syd Rhythm: Other (junctional) Ectopy: None Interpretation: anteroseptal infact-age undetermined Re-Evaluation Re-Evaluation Time of Re-Evaluation: 17:00 Status: Improved Physician Notification Case Discussed Physician Notified: DR RUDD-ADMIT FOR PAIN CONTROL Time of Notification: 17:00 Critical Care Note Critical Care Note Total Critical Care Time (mins): 60 Course Course Hematology/Chemistry: 12/11/20 14:54 12/11/20 14:54 Orders, Labs, Meds: Lab Review 12/11/20 12/11/20 12/11/20 14:54 14:54 14:54 WBC 6.32 RBC 3.43 L Hgb 11.1 L Hct 33.7 L MCV 98.3 MCH 32.4 H MCHC 32.9 RDW Coeff of Mookie 13.6 Plt Count 128 L Immature Gran % (Auto) 0.3 Neut % (Auto) 72.0 Lymph % (Auto) 19.0 [place] % (Auto) 6.2 Eos % (Auto) 1.7 Baso % (Auto) 0.8 Neut # (Auto) 4.6 Lymph # (Auto) 1.2 [place] # (Auto) 0.4 Eos # (Auto) 0.1 Baso # (Auto) 0.1 Immature Gran # (Auto) 0.0 PT 11.0 INR 1.04 APTT 26.3 Sodium 137.8 Potassium 3.64 Chloride 107.3 H Carbon Dioxide 21.7 L Anion Gap 12.44 BUN 24.5 H Creatinine 0.75 Estimated GFR (MDRD) 73.00 BUN/Creatinine Ratio 32.66 Glucose 80.8 Calcium 9.76 Total Bilirubin 0.56 AST 24.2 ALT 10.5 Alkaline Phosphatase 46.7 L Troponin I 0.026 Total Protein 6.42 Albumin 3.94 Globulin 2.48 Albumin/Globulin Ratio 1.58 Urine Color Urine Clarity Urine pH Ur Specific Weir Urine Protein Urine Glucose (UA) Urine Ketones Urine Blood Urine Nitrite Urine Bilirubin Urine Urobilinogen Ur Leukocyte Esterase Urine Microscopic RBC Urine Microscopic WBC Ur Squamous Epith Cells Urine Bacteria Urine Yeast Adenovirus (PCR) B. pertussis DNA (PCR) B.parapertussis DNA PCR C. pneumoniae DNA (PCR) Coronavirus OC43 (PCR) Coronavirus HKU1 (PCR) Coronavirus 229E (PCR) Coronavirus NL63 (PCR) Human Metapneumovir PCR Influenza Type A (PCR) Influenza B (RT-PCR) M. pneumoniae (PCR) Parainfluenza 1 (PCR) Parainfluenza 2 (PCR) Parainfluenza 3 (PCR) Parainfluenza 4 (PCR) RSV (PCR) Entero/Rhino (PCR) SARS-CoV-2 (PCR) 12/11/20 12/11/20 18:10 18:18 WBC RBC Hgb Hct MCV MCH MCHC RDW Coeff of Mookie Plt Count Immature Gran % (Auto) Neut % (Auto) Lymph % (Auto) [place] % (Auto) Eos % (Auto) Baso % (Auto) Neut # (Auto) Lymph # (Auto) [place] # (Auto) Eos # (Auto) Baso # (Auto) Immature Gran # (Auto) PT INR APTT Sodium Potassium Chloride Carbon Dioxide Anion Gap BUN Creatinine Estimated GFR (MDRD) BUN/Creatinine Ratio Glucose Calcium Total Bilirubin AST ALT Alkaline Phosphatase Troponin I Total Protein Albumin Globulin Albumin/Globulin Ratio Urine Color Yellow Urine Clarity Clear Urine pH 5.0 Ur Specific Weir 1.020 Urine Protein Negative Urine Glucose (UA) Negative Urine Ketones Negative Urine Blood Negative Urine Nitrite Positive H Urine Bilirubin Negative Urine Urobilinogen 0.2 Ur Leukocyte Esterase 1+ H Urine Microscopic RBC 0-2 Urine Microscopic WBC 5-10 Ur Squamous Epith Cells 2-5 Urine Bacteria 3+ Urine Yeast 1+ Adenovirus (PCR) Not detected B. pertussis DNA (PCR) Not detected B.parapertussis DNA PCR Not detected C. pneumoniae DNA (PCR) Not detected Coronavirus OC43 (PCR) Not detected Coronavirus HKU1 (PCR) Not detected Coronavirus 229E (PCR) Not detected Coronavirus NL63 (PCR) Not detected Human Metapneumovir PCR Not detected Influenza Type A (PCR) Not detected Influenza B (RT-PCR) Not detected M. pneumoniae (PCR) Not detected Parainfluenza 1 (PCR) Not detected Parainfluenza 2 (PCR) Not detected Parainfluenza 3 (PCR) Not detected Parainfluenza 4 (PCR) Not detected RSV (PCR) Not detected Entero/Rhino (PCR) Not detected SARS-CoV-2 (PCR) Not detected Orders Category Date Time Status ADMIT PATIENT [facility]PAT[facility] ADMISSION 12/11/20 18:02 Active EKG-(ED ONLY) Stat CARDIO 12/11/20 14:34 Completed ACTIVITY .Complete BR CARE 12/11/20 18:05 Active ACTIVITY .Early Mobilization for VTE Prevention CARE 12/11/20 18:05 Active BLOOD GLUCOSE MONITORING 0630,1100,1700,2100 CARE 12/11/20 18:05 Active CASE MANAGEMENT CONSULT ONCE CARE 12/11/20 19:39 Ordered INTAKE & OUTPUT Q8HR CARE 12/11/20 18:04 Active INTAKE & OUTPUT Q8HR CARE 12/11/20 19:39 Ordered INTAKE & OUTPUT Q8HR CARE 12/11/20 19:39 Ordered TELEMETRY MONITORING TELE CARE 12/11/20 18:03 Active VITAL SIGNS Q4HR CARE 12/11/20 18:05 Active 2 GRAM SODIUM DIET DIETARY 12/11/20 Dinner Ordered IV [ED IV/MEDIPORT/POWERPORT] .ONCE EMERGENCY 12/11/20 14:37 Active CBC W/ AUTO DIFF DAILY@0600 LAB 12/12/20 06:00 Ordered CBC W/ AUTO DIFF DAILY@0600 LAB 12/13/20 06:00 Ordered CBC W/ AUTO DIFF Stat LAB 12/11/20 14:54 Completed CMP [COMPREHENSIVE METABOLIC PANEL] Stat LAB 12/11/20 14:54 Completed COMPREHENSIVE METABOLIC PANEL DAILY@0600 LAB 12/12/20 06:00 Ordered COMPREHENSIVE METABOLIC PANEL DAILY@0600 LAB 12/13/20 06:00 Ordered PARTIAL THROMBOPLASTIN TIME Stat LAB 12/11/20 14:54 Completed PT WITH INR Stat LAB 12/11/20 14:54 Completed RESPIRATORY PANEL 2.1 (PCR) Stat LAB 12/11/20 18:10 Completed TROPONIN I Stat LAB 12/11/20 14:54 Completed UA [URINALYSIS C & S IF INDICATED] Stat LAB 12/11/20 18:18 Completed URINE CULTURE Stat LAB 12/11/20 18:18 Received 0.9 % Sodium Chloride [Saline Flush] MEDS 12/11/20 14:37 Active 1 syr IVF PRN PRN Ceftriaxone/D5w 1 gm Premix [Rocephin 1 gm/50 ml D5w] MEDS 12/11/20 20:00 Ordered 1 gm in 50 ml IV DAILY Ondansetron HCl/Pf [Zofran 4 mg/2 ml] MEDS 12/11/20 15:13 Discontinued 4 mg IVP ONCE STA Ondansetron HCl/Pf [Zofran 4 mg/2 ml] MEDS 12/11/20 18:04 Active 4 mg IVP Q6H PRN Oxycodone-Acetaminophen 5-325 [Percocet 5-325] MEDS 12/11/20 19:39 Ordered 1 tab PO Q6H PRN Potassium Chloride in 0.9%NaCl [Sodium Chloride 0.9%- MEDS 12/11/20 18:30 Active KCl 20 Meq] 1,000 ml IV 70 mls/hr RESUSCITATION STATUS Routine OTHERS 12/11/20 18:04 Completed RESUSCITATION STATUS Routine OTHERS 12/11/20 19:39 Ordered CHEST, 1V AP ONLY Stat RADS 12/11/20 14:[address] CERVICAL SPINE W/O CONTRAST Stat RADS 12/11/20 14:[address] HEAD W/O CONTRAST Stat RADS 12/11/20 15:[address] LUMBAR SPINE W/O CONTRAST Stat RADS 12/11/20 14:[address] PELVIS W/O CONTRAST Stat RADS 12/11/20 14:[address] SHOULDER LEFT W/O CONTRAST Stat RADS 12/11/20 14:[address] SHOULDER RIGHT W/O CONTRAST Stat RADS 12/11/20 14:35 Completed Medications Generic Name Dose Route Start Last Admin Trade Name Freq PRN Reason Stop Dose Admin Potassium Chloride/Sodium Chloride 1,000 mls @ 70 mls/hr 12/11/20 18:30 12/11/20 19:08 Sodium Chloride 0.9%-Kcl 20 Meq IV 70 mls/hr .[id number] MONICA Administration CEFTRIAXONE/D5W 1 GM PREMIX 1 gm in 50 mls @ 75 mls/hr 12/11/20 20:00 Rocephin 1 Gm/50 Ml D5w IV 12/14/20 19:59 DAILY MONICA Ondansetron HCl 4 mg 12/11/20 18:04 Ondansetron Hcl/Pf 4 Mg/2 Ml Sdv IVP Q6H PRN Nausea / Vomiting Oxycodone/Acetaminophen 1 tab 12/11/20 19:39 Oxycodone/Acetaminophen 5/325 Mg Tablet PO Q6H PRN Pain Sodium Chloride 1 syr 12/11/20 14:37 12/11/20 15:38 0.9% Sodium Chloride 10 Ml Disp.Syrin IVF 1 syr PRN PRN Administration To flush IV Discontinued Medications Generic Name Dose Route Start Last Admin Trade Name Freq PRN Reason Stop Dose Admin Ondansetron HCl 4 mg 12/11/20 15:13 12/11/20 15:36 Ondansetron Hcl/Pf 4 Mg/2 Ml Sdv IVP 12/11/20 15:14 4 mg ONCE STA Administration Vital Signs: Temp Pulse Resp BP Pulse Ox 12/11/20 14:00 97.6 F 76 20 132/68 97 Discharge Plan Discharge Patient Disposition: ADMITTED INPATIENT Discharge Problem: Closed sacral fracture, Impairment of balance, At risk for falls, Closed head injury, UTI (urinary tract infection), Junctional rhythm ED Provider: RAMYA DODD Physician Progress Note: []
[2020-12-11 15:01] LABS: BASOPHILS # (AUTO) 0.1 K/uL (0-0.2); BASOPHILS % (AUTO) 0.8 % (0.0-3.0); EOSINOPHILS # (AUTO) 0.1 K/ul (0.0-0.7); EOSINOPHILS % (AUTO) 1.7 % (0.0-7.0); HEMATOCRIT 33.7 % (37.0-47.0); HEMOGLOBIN 11.1 g/dl (12.0-16.0); IMMATURE GRANULOCYTE % (AUTO) 0.3 % (0.0-5.0); LYMPHOCYTES # (AUTO) 1.2 K/uL (0.60-3.4); MEAN CORPUSCULAR HEMOGLOBIN 32.4 pg (27.0-31.0); MEAN CORPUSCULAR HGB CONC 32.9 (31.8-35.4); MEAN CORPUSCULAR VOLUME 98.3 fl (81.0-99.0); MONOCYTES # (AUTO) 0.4 K/uL (0.4-2.0); MONOCYTES % (AUTO) 6.2 (0-10); NEUTROPHILS # (AUTO) 4.6 K/ul (2.0-6.9); PLATELET COUNT 128 10^3/uL (140-440); RDW COEFFICIENT OF VARIATION 13.6 % (11.6-14.8); RED BLOOD COUNT 3.43 10^6/ul (4.20-5.40); WHITE BLOOD COUNT 6.32 K/ul (4.6-10.2)
[2020-12-11] MEDS ORDERED: ZOFRAN 4 MG/2 ML IM ONE (15:03)
[2020-12-11 15:13] LABS: ALANINE AMINOTRANSFERASE 10.5 U/L (0-35); ALBUMIN 3.94 g/dL (3.5-5.0); ALKALINE PHOSPHATASE 46.7 U/L (53-141); ASPARTATE AMINO TRANSFERASE 24.2 U/L (14-36); BILIRUBIN,TOTAL 0.56 mg/dL (0.2-1.3); BLOOD UREA NITROGEN 24.5 mg/dL (7-17); CALCIUM 9.76 mg/dL (8.4-10.2); CARBON DIOXIDE 21.7 mmol/L (22-30.0); CHLORIDE 107.3 mmol/L (98-107); CREATININE 0.75 mg/dL (0.60-1.30); GLUCOSE 80.8 mg/dL (74-106); POTASSIUM 3.64 mmol/L (3.5-5.1); SODIUM 137.8 mmol/L (134.5-145); TOTAL PROTEIN 6.42 g/dL (6.3-8.2)
[2020-12-11] MEDS ORDERED: ZOFRAN 4 MG/2 ML IVP STA (15:13)
[2020-12-11 15:21] LABS: PARTIAL THROMBOPLASTIN TIME 26.3 SEC (23.9-40.0)
[2020-12-11 15:24] LABS: TROPONIN I 0.026 ng/ml (0.0000-0.120)
--- NOTE | 2020-12-11 15:36 | CT ---
EXAM: CT head without contrast. HISTORY: Initial presentation for head trauma due to a fall. COMPARISON: 05/30/2019. TECHNIQUE: Multiple axial images of the brain were obtained from the skull base through the vertex w ithout intravenous contrast. Multiplanar reformats were provided. FINDINGS: There is no intracranial hemorrhage or extraaxial collection. The adams-white differentiat ion is maintained without evidence for acute large vascular territory infarction. There are areas of periventricular and subcortical white matter low attenuation. The cortical sulci and cerebral ventr icles are symmetrically enlarged. The basal cisterns are well visualized. There is no hydrocephalus , mass effect, or midline shift. The paranasal sinuses and mastoid air cells are clear. The calvari um is intact. Right posterior scalp soft tissue swelling noted. IMPRESSION: 1. No acute intracranial abnormality. 2. Chronic small vessel ischemic changes and atrophy. All CT scans are performed using dose optimization techniques as appropriate to the performed exam an d include at least one of the following: Automated exposure control, adjustment of the mA and/or kV according t o size, and the use of iterative reconstruction technique.
--- NOTE | 2020-12-11 15:37 | CT ---
EXAM: CT left shoulder without contrast HISTORY: Initial presentation for left shoulder pain following a fall. COMPARISON: None. TECHNIQUE: Multiple axial images of the left shoulder obtained without intravenous contrast. Images were reformatted in the sagittal and coronal planes. FINDINGS: Bone mineralization is decreased. There is no fracture or dislocation. Moderate joint sp tala narrowing and spurring at the glenohumeral and acromioclavicular joints. No erosions identified. No focal soft tissue abnormality is seen. There are nonspecific ground-glass nodules in the left upper lobe on axial images 52 and 58. Calcifi ed granulomatous changes present. Aortic atherosclerotic calcifications noted. IMPRESSION: No fracture or dislocation. All CT scans are performed using dose optimization techniques as appropriate to the performed exam an d include at least one of the following: Automated exposure control, adjustment of the mA and/or kV according t o size, and the use of iterative reconstruction technique.
--- NOTE | 2020-12-11 15:41 | CT ---
EXAM: CT right shoulder without contrast HISTORY: Initial presentation for right shoulder trauma due to a fall. COMPARISON: None. TECHNIQUE: Multiple axial images of the right shoulder obtained without intravenous contrast. Image s were reformatted in the sagittal and coronal planes. FINDINGS: Bone mineralization is decreased. There is no fracture or dislocation. Moderate joint sp tala narrowing and spurring at the acromioclavicular glenohumeral joints. No erosions identified. No focal soft tissue abnormality is seen. The visualized right lung clear. IMPRESSION: No fracture or dislocation. All CT scans are performed using dose optimization techniques as appropriate to the performed exam an d include at least one of the following: Automated exposure control, adjustment of the mA and/or kV according t o size, and the use of iterative reconstruction technique.
--- NOTE | 2020-12-11 15:42 | CT ---
EXAM: CT cervical spine without contrast HISTORY: Neck pain, ground-level fall TECHNIQUE: Multi-slice transaxial helical with coronal and sagittal reformatted views. COMPARISON: None FINDINGS: No acute fracture or spondylolisthesis. Degenerative. Stepwise retrolisthesis of C3 on C4 and C4 an d C5 measures 0.2 cm. Preserved normal cervical lordosis. Vertebral body heights are maintained. Allyson tomic alignment of the facet joints. Generalized discogenic degenerative change with facet arthrosis . There is circumferential epidural intermediate density at the C2-3 level with mild/moderate canal s tenosis. No evidence of large epidural hematoma. Severe canal stenosis at C3-4, C4-5, C5-6 and C6-7 . Severe foraminal stenosis at C2 throughout the right, bilaterally at C3-4, C5-6 and C6-7. Paraspin al soft tissues are unremarkable. Lung apices are clear. Nonspecific 0.4 cm ground-glass nodule in the left apex (axial 93) IMPRESSION: No acute osseous abnormality. Diffuse cervical spondylosis with multilevel severe canal stenosis involving C3-4, C4-5, C5-6 and C6- 7. Nonspecific epidural intermediate hyperdensity at the C2-3 level, which may represent combination of disc bulge and ligamentous hypertrophy versus small epidural hematoma. MRI can further evaluate. Left apical 0.4 cm ground-glass nodule, which could represent infectious/inflammatory change. Consid er follow-up CT and [address] scans are performed using dose optimization techniques as appropriate to the performed exam an d include at least one of the following: Automated exposure control, adjustment of the mA and/or kV according t o size, and the use of iterative reconstruction technique.
--- NOTE | 2020-12-11 15:53 | CT ---
EXAM: CT lumbar spine without contrast. HISTORY: Pain post ground-level fall COMPARISON: Same day CT pelvis TECHNIQUE: Serial axial images of the spine were obtained from the lower thoracic spine through the pelvis without contrast. These were viewed in multiple planes. FINDINGS: Vertebral bodies demonstrate no acute compression fracture. There is 0.7 cm of anterolist hesis of L4-L5. There is moderate to severe facet arthropathy. There is multilevel mild disc space narrowing with anterior disc osteophytes. The lumbosacral junction is intact. Posterior and transve rse processes are normal. There is mild cortical disruption of the inferior sacrum as seen on image 93 L1-L2: Degenerative change with no central or neural foraminal narrowing. L2-L3: Facet arthropathy and broad-based disc bulge with mild central and bilateral neural foraminal narrowing. L3-L4: Broad-based disc bulge with facet arthropathy without central or neural foraminal narrowing L4-L5: Anterior listhesis with large broad-based disc bulge and facet arthropathy with mild neural fo raminal narrowing and moderate central narrowing. L5-S1: Facet arthropathy without central or neural foraminal narrowing. Limited views of the soft tissues are better visualized on same day CT pelvis IMPRESSION: 1. No acute compression fracture with anterolisthesis of L4 on L5. 2. Cortical irregularity and lucency in the most inferior aspect of the sacrum suggestive of fractur e. This is better visualized on CT pelvis. 3. Multilevel degenerative disease with areas of central neural foraminal narrowing. This is most p ronounced at L4-L5 with moderate central narrowing. If further evaluation is clinically indicated, M RI may be obtained. All CT scans are performed using dose optimization techniques as appropriate to the performed exam an d include at least one of the following: Automated exposure control, adjustment of the mA and/or kV according t o size, and the use of iterative reconstruction technique.
--- NOTE | 2020-12-11 15:54 | CT ---
EXAM: Into pelvis without contrast HISTORY: Evaluate for pelvic/hip fracture COMPARISON: None. TECHNIQUE: Noncontrast CT of the pelvis with coronal size reformats. FINDINGS: Nonobstructive bowel gas pattern. Normal bladder. Mild fluid distension of the bowel in the right h radha pelvis. Nonspecific trace pelvic free fluid. Atherosclerotic calcifications. Normal alignment. Mild core irregularity at the anterior cortex of the S4 vertebral body fracture carolyn cency extending to the posterior elements.. Moderate bilateral hip osteoarthritis. Symmetric mild o steoarthritis of the bilateral SI joints. Healed left intertrochanteric femoral fracture status post fixation. No suleman-hardware lucency or evidence of hardware complication. IMPRESSION: Transverse S4 sacral body fracture. All CT scans are performed using dose optimization techniques as appropriate to the performed exam an d include at least one of the following: Automated exposure control, adjustment of the mA and/or kV according t o size, and the use of iterative reconstruction technique.
--- NOTE | 2020-12-11 16:35 | DI ---
EXAM: Chest one view HISTORY: Ground-level fall COMPARISON: 02/11/2018 TECHNIQUE: Single view of the chest was performed FINDINGS: Normal heart size. Normal mediastinal contour. Mediastinal granulomatous calcifications. The lungs are clear. No pleural effusion or pneumothorax. No acute osseous abnormality. IMPRESSION: No acute cardiopulmonary process.
[2020-12-11] MEDS ORDERED: ZOFRAN 4 MG/2 ML IVP PRN (18:04)
[2020-12-11 18:13] LABS: BORDETELLA PARAPERTUSSIS (PCR) NOT DETECTED (NOT DETECT); BORDETELLA PERTUSSIS (PCR) NOT DETECTED (NOT DETECT); CHLAMYDIA PNEUMONIAE (PCR) NOT DETECTED (NOT DETECT); CORONAVIRUS 229E (PCR) NOT DETECTED (NOT DETECT); CORONAVIRUS HKU1 (PCR) NOT DETECTED (NOT DETECT); CORONAVIRUS NL63 (PCR) NOT DETECTED (NOT DETECT); CORONAVIRUS OC43 (PCR) NOT DETECTED (NOT DETECT); HUMAN METAPNEUMOVIRUS (PCR) NOT DETECTED (NOT DETECT); HUMAN RHINOVIRUS/ENTEROV (PCR) NOT DETECTED (NOT DETECT); INFLUENZA B (PCR) NOT DETECTED (NOT DETECT); MYCOPLASMA PNEUMONIAE (PCR) NOT DETECTED (NOT DETECT); PARAINFLUENZA VIRUS 1 (PCR) NOT DETECTED (NOT DETECT); PARAINFLUENZA VIRUS 2 (PCR) NOT DETECTED (NOT DETECT); PARAINFLUENZA VIRUS 3 (PCR) NOT DETECTED (NOT DETECT); PARAINFLUENZA VIRUS 4 (PCR) NOT DETECTED (NOT DETECT); RESPIRATORY SYNCYTIAL V (PCR) NOT DETECTED (NOT DETECT); SARS_COV_2 (PCR) NOT DETECTED (NOT DETECT)
[2020-12-11 18:26] LABS: BILIRUBIN,URINE Negative (NEGATIVE); CLARITY,URINE Clear (CLEAR); COLOR,URINE Yellow (YELLOW); GLUCOSE, URINE (UA) Negative (NEGATIVE); KETONES,URINE Negative (NEGATIVE); LEUKOCYTE ESTERASE ,URINE 1+ (NEGATIVE); NITRITE,URINE Positive (NEGATIVE); PROTEIN,URINE Negative (NEGATIVE); URINE, BLOOD Negative (NEGATIVE); UROBILINOGEN,URINE 0.2 (0.2)
[2020-12-11 18:36] LABS: BACTERIA,URINE 3+ (NOT PRESENT); URINE RBC, MICROSCOPIC 0-2 (0-2); YEAST,URINE 1+ (NOT PRESENT)
[2020-12-11 19:02] LABS: ADENOVIRUS (PCR) NOT DETECTED (NOT DETECT)
[2020-12-11] MEDS: SODIUM CHLORIDE 0.9%-KCL 20 MEQ 1,000 ML IV SCH (19:08)
[2020-12-11] MEDS ORDERED: ROCEPHIN 1 GM/50 ML D5W 1 GM/50 ML BAG IV SCH (20:00)
[2020-12-11 21:08] VITALS: BMI 22.5
[2020-12-11] MEDS: PERCOCET 5-325 PO PRN (21:54)
[2020-12-11] MEDS: ZANAFLEX PO PRN (21:54)
[2020-12-11] MEDS: NEURONTIN PO SCH (21:54)
[2020-12-12] MEDS: ZANAFLEX PO PRN (04:38)
[2020-12-12] MEDS: PERCOCET 5-325 PO PRN ×2 (04:38→10:18)
[2020-12-12 05:47] LABS: ALBUMIN 3.6 g/dL (3.5-5.0); ASPARTATE AMINO TRANSFERASE 26.5 U/L (14-36); BILIRUBIN,TOTAL 0.49 mg/dL (0.2-1.3); BLOOD UREA NITROGEN 20.6 mg/dL (7-17); CALCIUM 9.6 mg/dL (8.4-10.2); CARBON DIOXIDE 24.4 mmol/L (22-30.0); CREATININE 0.67 mg/dL (0.60-1.30); GLUCOSE 85.5 mg/dL (74-106); POTASSIUM 3.99 mmol/L (3.5-5.1); SODIUM 137.8 mmol/L (134.5-145); TOTAL PROTEIN 5.97 g/dL (6.3-8.2)
[2020-12-12 05:50] LABS: BASOPHILS % (AUTO) 0.4 % (0.0-3.0); EOSINOPHILS # (AUTO) 0.2 K/ul (0.0-0.7); EOSINOPHILS % (AUTO) 2.4 % (0.0-7.0); HEMOGLOBIN 11.5 g/dl (12.0-16.0); IMMATURE GRANULOCYTE % (AUTO) 0.1 % (0.0-5.0); LYMPHOCYTES # (AUTO) 1.4 K/uL (0.60-3.4); LYMPHOCYTES % (AUTO) 19.9 (10.0-50.0); MEAN CORPUSCULAR HEMOGLOBIN 31.9 pg (27.0-31.0); MEAN CORPUSCULAR HGB CONC 32.9 (31.8-35.4); MEAN CORPUSCULAR VOLUME 97.2 fl (81.0-99.0); MONOCYTES # (AUTO) 0.6 K/uL (0.4-2.0); MONOCYTES % (AUTO) 8.1 (0-10); NEUTROPHILS # (AUTO) 4.9 K/ul (2.0-6.9); NEUTROPHILS % (AUTO) 69.1 % (42.2-75.2); PLATELET COUNT 131 10^3/uL (140-440); RDW COEFFICIENT OF VARIATION 13.6 % (11.6-14.8); WHITE BLOOD COUNT 7.07 K/ul (4.6-10.2)
[2020-12-12] MEDS ORDERED: SYNTHROID PO SCH (06:30)
[2020-12-12] MEDS ORDERED: PROTONIX PO SCH (06:30)
[2020-12-12] MEDS: PLAVIX PO SCH (09:40)
[2020-12-12] MEDS: CYMBALTA PO SCH (09:40)
[2020-12-12] MEDS: ZESTRIL PO SCH (09:40)
[2020-12-12] MEDS: LIPITOR PO SCH (09:40)
[2020-12-12] MEDS: SODIUM CHLORIDE 0.9%-KCL 20 MEQ 1,000 ML IV SCH (09:40)
[2020-12-12] MEDS: ZOLOFT PO SCH (09:41)
[2020-12-12] MEDS ORDERED: TORADOL IVP STA (11:35)
[2020-12-12] MEDS ORDERED: SYNTHROID PO ONE (11:35)
[2020-12-12] MEDS ORDERED: PERCOCET 7.5-325 PO PRN (11:39)
--- NOTE | 2020-12-12 11:43 | RS.OTINEVL ---
Subjective - Patient information Date of Evaluation: 12/12/20 Date of Arrival on Unit: 12/11/20 Admitted From:: Emergency Dept Diagnosis: Closed head injury, S4 fracture, UTI PRECAUTIONS: Risk for falls, CHI Usual Living Arrangement: Alone Living Arrangement Comments: LIVES ALONE IN AN APT Home Environment: Apartment, Level/No stairs Medical History Comments:: HTN, dyslipidemia, CKD, Stage 2, Anemia, Carotid Stenosis, Neuropathy, Hypothyroidism, Insomnia, GERD, DJD, OA knees, Depression, Left TKA, Left hip ORIF, Breast Cancer Subjective Information/ Patient Comments:: Pt reports she lives alone. - Level of function Prior to this admission, the patient could do the following:: Independent Selfcare, Independent Ambulation Abilities prior to this admission: Pt was independent with ADLS, ambulation, and shopping. Current Level of Function: Independent Current Equipment Used at Home: CANE, SHOWER CHAIR, BEDSIDE COMMODE, BP CUFF, WALKER, WHEELCHAIR Pain Assessment - Pain Pain Score: 6 Side: bilateral Pain Location Body Site: Sacrum Pain Aggravating Factors: ADL's, Changing Position, Sitting Pain Alleviating Factors: Medication, Position Change Interventions - Objective Patient Orientation: Person, Place, Time, Situation Current Interventions: IV's, Telemetry Observation: Pt is weak and not able to move the RUE in shoulder flexion. Pt is able to use her RUE hand/elbow. Pt is minimal assistance for aden and doff her briefs for toileting. Pt requires CGA for ambulating with RW. Pt has weakness in BUE. Interventions - ROM Right Upper Extremity AROM: WFL's Left Upper Extremity AROM: WFL's - Strength Right Upper Extremity Strength: Severe Weakness Left Upper Extremity Strength: Mild Weakness - Sensation Right Upper Extremity Sensation: Intact/Normal Left Upper Extremity Sensation: Intact/Normal Balance - Sitting Balance Static Sitting Balance: Good Dynamic Sitting Balance: Good - Standing Balance Static Standing Balance: Good Dynamic Standing Balance: Good ADL Skills - Self Feeding Self Feeding: Set Up Only - Grooming Grooming: Max Assist - Dressing Dressing UE: Mod Assist Dressing LE: Mod Assist - Toilet Management Toileting Management: Min Assist Functional Mobility - Bed Mobility Supine to Sit: Min Assist Sit to Supine: CGA - Transfers Sit to Stand: CGA Stand to Sit: CGA Stand Pivot Transfers: CGA - Ambulation Weight Bearing Status: FWB Assistive Device Used: Rolling Walker Assistance needed with Ambulation: CGA, 1 person assist - Safety Awareness Safety Awareness: Good MAKENNA INDEX SCORE: . Additional Treatment Performed - Time with patient Length of Evaluation: 18 Total treatment time: 20 Activities Do you enjoy playing games?: Yes Would you be interested in leaving your room for activities?: Yes Would you enjoy group activities?: Yes Do you have difficulty with your vision?: Yes Patient Interests:: Watching Television, Visiting/Socializing Patient Education Patient Education: Education of diagnosis, Home Exercise Program, Education of Plan of Care Teaching Recipient: Patient Teaching Methods: Discussion Assessment Problem List:: Decreased level of function, Requires training/education, Decreased safety/Risk of falls, Weakness, Pain limits previous level of function Rehab Potential: Good Further Therapy Indicated?: Yes Evaluation Complexity: HISTORY: Medium, EXAM OF BODY SYSTEMS: Medium, CLINICAL DECISION MAKING: Medium Patient's Goal(s): to get stronger where she can go home and take care of herself. Short Term Goals - Goals GOAL 1: Pt to tolerate Codman's exercises independently. Goal to be met by: 12/17/20 GOAL 2: Pt to be CGA for aden and doff briefs during toileting. Goal to be met by: 12/17/20 GOAL 3: Pt to increase RUE strength to 4/5. Goal to be met by: 12/17/20 GOAL 4: Pt to be minimal assist with dressing UB/LB. Goal to be met by: 12/17/20 Shipping Lead Goals GOAL 1: Pt to be independent with dressing. Goal to be met by: 12/20/20 GOAL 2: Pt to be Independent with toileting. Goal to be met by: 12/20/20 GOAL 3: Pt to increase RUE strength to 4+/5. Plan Plan of Care: Therapeutic EX, Therapeutic Activity, Self-Care/Home Management Modalities: Hot Pack, Cold Pack/Cryotherapy, Ultrasound, Electrical Stimulation Frequency of Treatment: 1-2 X day, as tolerated Duration of Treatment: 1 Week Anticipated Discharge Destination: Home Treatment Diagnosis (ICD 10 Codes): Right shoulder pain M25.511, Need for assistance with personal care Z74.1, Weakness M62.81 Has the Physician been added for Co-signature?: Yes
--- NOTE | 2020-12-12 13:27 | RS.PTINEVL ---
Subjective - Patient information Date of Evaluation: 12/12/20 Date of Arrival on Unit: 12/11/20 Admitted From:: Home Diagnosis: closed head injury, sacral fx, UTI, fall Usual Living Arrangement: Alone Home Environment: Apartment, Level/No stairs Medical History: CVA/TIA Medical History Comments:: afib, neuropathy, degenerative disease with severe canal stenosis, previous L hip fx Surgical History: Hysterectomy Surgical History Comments:: ORIF L hip, knee sx Medications: see chart Subjective Information/ Patient Comments:: pt states that she was getting on the bus and her cane slid in the gravel and she fell. She c/o pain in R shld and her low back. - Level of function Prior to this admission, the patient could do the following:: Independent Selfcare, Independent Ambulation Current Level of Function: Partially Dependent Current Equipment Used at Home: CANE, SHOWER CHAIR, BEDSIDE COMMODE, BP CUFF, WALKER, WHEELCHAIR Pain Assessement - Location R shld Description: Sharp, Aching Pain Behavior: Guarding, Withdrawal from Touch, Facial Grimacing Pain Aggravating Factors: Changing Position, Exercise/Activity Pain Alleviating Factors: Medication sacral area Description: Aching Pain Behavior: Facial Grimacing Interventions - Objective Patient Orientation: Person, Place, Time, Situation Current Interventions: IV's, Telemetry Observation: pt with open area to back of her head. pt is right hand dominant Range of Motion - ROM Right Upper Extremity AROM: Moderate limitation (R shld flex PROM approx 80 abduction approx 50. elbow wrist and hand WFl's) Left Upper Extremity AROM: WFL's Right Lower Extremity AROM: WFL's Left Lower Extremity AROM: WFL's Muscle Strength - Muscle Strength Right Upper Extremity Strength: Mild Weakness (shld flex 3-/5, elbow flex/ext 3+/5, decreased rumper) Left Upper Extremity Strength: Mild Weakness (grossly 4/5) Right Lower Extremity Strength: Mild Weakness (hip flex 4-/5, knee flex/ext 4/5, ankle Df/PF 4/5) Left Lower Extremity Strength: Mild Weakness (hip flex 4-/5, knee flex/ext 4/5, ankle Df/PF 4/5) Sensation - Sensation Right Upper Extremity Sensation: Intact/Normal Left Upper Extremity Sensation: Intact/Normal Right Lower Extremity Sensation: Intact/Normal Left Lower Extremity Sensation: Intact/Normal Palpation Palpation Findings: Tenderness Comments:: tenderness to palpation R shld as well as scapula Balance - Sitting Balance and Reactions Static Sitting Balance: Good Dynamic Sitting Balance: Fair - Standing Balance and Reactions Static Standing Balance: Poor Dynamic Standing Balance: Poor Standing Equilibrium Reactions: Delayed Left, Delayed Right Standing Protective Reactions: Delayed Left, Delayed Right Functional Mobility - Bed Mobility Rolling R/L: Min Assist, 1 person assist Supine to Sit: Min Assist, 1 person assist - Transfers Sit to Stand: Min Assist, 2 person assist Stand to Sit: Min Assist, 1 person assist Comments:: limited due to decreased R shld ROM for reaching back or pushing up from chair. - Safety Awareness Safety Awareness: Fair MAKENNA INDEX SCORE: n/a Ambulation - Ambulation Assistive Device Used: Rolling Walker Orthotic/Prosthetic Device: No Distance: 40ft Assistance needed with Ambulation: Min Assist, 1 person assist (+1 for IV) Gait Deviations: Forward posture, Short stride, Deviates from path Ambulation Comments: pt c/o dizziness while amb. Factors Affecting Ambulation: Decreased Balance, Weakness, Decreased ROM, Dizziness, Decreased Safety, Limited Endurance Treatment time - Time with patient Length of Evaluation: 21 Total treatment time: 34 Patient Education - Education Patient Education: Activity Modification, Education of Plan of Care Teaching Recipient: Patient Teaching Methods: Discussion Assessment - Assessment Problem List:: Decreased level of function, Requires training/education, Decreased safety/Risk of falls, Weakness, Pain limits previous level of function Rehab Potential: Good Further Therapy Indicated?: Yes Candidate for Swing Bed for Therapy Services?: Feel pt would be a candidate for swing bed for therapy Evaluation Complexity: HISTORY: Medium, EXAM OF BODY SYSTEMS: Medium, CLINICAL PRESENTATION: Medium, CLINICAL DECISION MAKING: Medium Patient's Goal(s): get stronger and return home Short Term Goals GOAL #1: pt independent with rolling and scooting in bed Goal to be met by: 12/16/20 GOAL #2: Transfer sup to/from sit CGA Goal to be met by: 12/16/20 GOAL #3: Transfer sit to/from stand CGA Goal to be met by: 12/16/20 GOAL #4: pt amb with rwx 100ft with CGA x 1 with improved posture/gait sequencing Goal to be met by: 12/16/20 GOAL #5: Improve dyn sit balance fair + Goal to be met by: 12/16/20 Dozer Operator Goals GOAL #1: pt independent with transfers Goal to be met by: 12/19/20 GOAL #2: amb functional household distances with rwx independently Goal to be met by: 12/19/20 GOAL #3: Improve BLE strength 4 to 4+/5 Goal to be met by: 12/19/20 Plan Plan of Care: Therapeutic EX, Neuromuscular Re-Educ, Therapeutic Activity Modalities: Cold Pack/Cryotherapy Other:: gait training Frequency of Treatment: 1-2 X day, as tolerated Duration of Treatment: 1 Week Anticipated Discharge Destination: home vs swing bed Treatment Diagnosis (ICD 10 Codes): impaired balance R 26.81. gait difficulty R 26.2. falls R 29.6. weakness M62.81. R shld pain Has the Physician been added for Co-signature?: Yes
[2020-12-12] MEDS: NEURONTIN PO SCH (20:56)
[2020-12-12] MEDS ORDERED: ROCEPHIN 1 GM/50 ML D5W 1 GM/50 ML BAG IV SCH (21:00)
[2020-12-13] MEDS: SODIUM CHLORIDE 0.9%-KCL 20 MEQ 1,000 ML IV SCH (00:31)
[2020-12-13] MEDS: PROTONIX PO SCH (05:33)
[2020-12-13] MEDS: SYNTHROID PO SCH ×2 (05:33)
[2020-12-13 05:49] LABS: BASOPHILS # (AUTO) 0.1 K/uL (0-0.2); BASOPHILS % (AUTO) 0.9 % (0.0-3.0); EOSINOPHILS # (AUTO) 0.3 K/ul (0.0-0.7); EOSINOPHILS % (AUTO) 4.3 % (0.0-7.0); HEMATOCRIT 35.6 % (37.0-47.0); HEMOGLOBIN 11.4 g/dl (12.0-16.0); IMMATURE GRANULOCYTE % (AUTO) 0.2 % (0.0-5.0); LYMPHOCYTES # (AUTO) 1.4 K/uL (0.60-3.4); LYMPHOCYTES % (AUTO) 23.4 (10.0-50.0); MEAN CORPUSCULAR HEMOGLOBIN 31.6 pg (27.0-31.0); MEAN CORPUSCULAR VOLUME 98.6 fl (81.0-99.0); MONOCYTES # (AUTO) 0.4 K/uL (0.4-2.0); MONOCYTES % (AUTO) 6.2 (0-10); NEUTROPHILS # (AUTO) 3.8 K/ul (2.0-6.9); PLATELET COUNT 134 10^3/uL (140-440); RDW COEFFICIENT OF VARIATION 13.8 % (11.6-14.8); RED BLOOD COUNT 3.61 10^6/ul (4.20-5.40)
[2020-12-13] MEDS ORDERED: SYNTHROID PO SCH (06:30)
[2020-12-13 06:42] LABS: ALANINE AMINOTRANSFERASE 11.7 U/L (0-35); ALBUMIN 2.99 g/dL (3.5-5.0); ALKALINE PHOSPHATASE 57.8 U/L (53-141); ASPARTATE AMINO TRANSFERASE 26.1 U/L (14-36); BILIRUBIN,TOTAL 0.29 mg/dL (0.2-1.3); BLOOD UREA NITROGEN 22.8 mg/dL (7-17); CALCIUM 9.33 mg/dL (8.4-10.2); CHLORIDE 111.3 mmol/L (98-107); CREATININE 0.81 mg/dL (0.60-1.30); GLUCOSE 101.5 mg/dL (74-106); POTASSIUM 4.56 mmol/L (3.5-5.1); SODIUM 139.2 mmol/L (134.5-145); TOTAL PROTEIN 5.35 g/dL (6.3-8.2)
[2020-12-13] MEDS ORDERED: PERCOCET 5-325 PO PRN (08:57)
--- NOTE | 2020-12-13 09:25 | PCM.PROG ---
Attending Provider: ATTENDING PROVIDER: Dr. LUCIAN RUDD This patient is seen with Simi Ibarra, Nurse Practitioner. DATE OF SERVICE: 12/13/20 SUBJECTIVE: This 85 year old /WHITE F was hospitalized 12/11/20. The patient has been complaining of pain. She received Percocet times one, otherwise doing well. fEVIEW OF SYSTEMS: CONSTITUTIONAL: No night sweats. No fatigue, malaise, lethargy. No fever or chills. HEENT: Eyes: No visual changes. No eye pain. No eye discharge. ENT: No runny nose. No epistaxis. No sinus pain. No odynophagia. No congestion. RESPIRATORY: No cough, no congestion. No hemoptysis. No shortness of breath. CARDIOVASCULAR: No angina symptoms. No CHF symptoms. No atypical chest pain for CAD. No palpitations. No orthopnea.. GASTROINTESTINAL: No abdominal pain. No nausea or vomiting. No diarrhea or constipation. No hematemesis. No hematochezia. GENITOURINARY: No urgency. No frequency. No dysuria. No hematuria. No obstructive symptoms. No discharge. No pain. No significant abnormal bleeding. MUSCULOSKELETAL: Low back pain, shoulder pain. NEUROLOGICAL: Awake, alert, oriented to time, place and person. No headache. No neck pain. No syncope. No seizures. No dizziness. PSYCHIATRIC: Not anxious. No depression. No suicidal thoughts. No homicidal thoughts. SKIN: No rash. No lesions. No wounds. ENDOCRINE: No unexplained weight loss. No weight gain. HEMATOLOGIC/LYMPHATIC: No anemia. No purpura. No petechiae. No prolonged or excessive bleeding. No palpable lymph nodes. PHYSICAL EXAMINATION: GENERAL: The patient is awake, alert and oriented, lying/sitting in bed in no distress. VITAL SIGNS: Temperature 97.5 F, Pulse 69, Respiratory Rate 18, BP 159/86, Pulse Ox 95% HEENT: Head normocephalic, atraumatic. Eyes: Extraocular muscles are intact. Pupils are equal, round and reactive to light and accommodation. Ears: No lesions. Nose appeared normal. Throat: No exudate or erythema. NECK: Supple. No JVD, no carotid bruit. No lymphadenopathy or thyromegaly. LUNGS: Clear to auscultation. Percussion note normal. Chest symmetrical. HEART: S1, S2, no S3. No murmurs. No cyanosis or clubbing. No ascites. Pulses: Dorsalis pedis and posterior tibial pulses +1 to +2 both sides. ABDOMEN: Soft. Non-tender. Bowel sounds active. No CVA tenderness. No mass felt. EXTREMITIES: No edema. Full range of motion of all extremities, equal. NEUROLOGIC: No focal deficit. Cranial nerves II through XII are grossly intact. No headache. No double vision. SKIN: Not dry. Intact. Turgor-normal. LYMPHATIC: No palpable lymph nodes/no lymphedema. MUSCULOSKELETAL: Normal joints with no swelling. Muscle tone is normal. LAB REVIEW: 12/13/20 05:02 12/13/20 05:02 12/13/20 05:02: Sodium 139.2, Potassium 4.56, Chloride 111.3 H, Carbon Dioxide 23.0, Anion Gap 9.46, BUN 22.8 H, Creatinine 0.81, Estimated GFR (MDRD) 67.00, BUN/Creatinine Ratio 28.14, Glucose 101.5, Calcium 9.33, Total Bilirubin 0.29, AST 26.1, ALT 11.7, Alkaline Phosphatase 57.8, Total Protein 5.35 L, Albumin 2.99 L, Globulin 2.36, Albumin/Globulin Ratio 1.26 12/13/20 05:02: WBC 5.80, RBC 3.61 L, Hgb 11.4 L, Hct 35.6 L, MCV 98.6, MCH 31.6 H, MCHC 32.0, RDW Coeff of Mookie 13.8, Plt Count 134 L, Immature Gran % (Auto) 0.2, Neut % (Auto) 65.0, Lymph % (Auto) 23.4, Giles % (Auto) 6.2, Eos % (Auto) 4.3, Baso % (Auto) 0.9, Neut # (Auto) 3.8, Lymph # (Auto) 1.4, Giles # (Auto) 0.4, Eos # (Auto) 0.3, Baso # (Auto) 0.1, Immature Gran # (Auto) 0.0 12/12/20 04:59: Hemoglobin A1c 4.75 ASSESSMENT: Please see below. 1. Status post fall, acute S4 fracture. 2. Severe degeneration C-spine. 3. UTI, culture pending. 4. Hypothyroidism. PLAN: 1. Continue IV antibiotics 2. Decrease Percocet 5 mg q.6 p.m. 3. Continue Rocephin after today. Plan and coordination of the patient's care discussed in the presence of Clinical Research Scientist and nurse. CONDITION: Stable SCRIBED BY: Stephanie ROSARIOist scribed while in presence of service performed by Dr. Rudd/Simi Ibarra APRN on 12/13/20 ([id number])
[2020-12-13] MEDS ORDERED: ANTIVERT PO PRN (09:41)
[2020-12-13] MEDS: CYMBALTA PO SCH (09:44)
[2020-12-13] MEDS: ZESTRIL PO SCH (09:44)
[2020-12-13] MEDS: PLAVIX PO SCH (09:44)
[2020-12-13] MEDS: LIPITOR PO SCH (09:44)
[2020-12-13] MEDS: ZOLOFT PO SCH (09:44)
[2020-12-13] MEDS: COLACE PO SCH (10:03)
--- NOTE | 2020-12-13 10:31 | HP ---
DATE OF SERVICE: 12/11/20 HISTORY OF PRESENT ILLNESS: 85-year-old white female whose cane got caught while shopping somewhere and she fell, now has sacral S4 fracture. The emergency room doctor called Dr. Cisneros, a neurosurgeon who indicated that nothing could be done about this fracture, not going to cause any consequences but again below S2 they don't deal with it so maybe orthopaedic surgeon may help but again he indicated that there is nothing that could be done about this S4 fracture. In any case, the patient is going to be hospitalized for control. PAST MEDICAL HISTORY: Dyslipidemia Neuropathy Hypothyroidism Hypertension Depression History of Paniagua's esophagus PAST SURGICAL HISTORY: History of right carotid endarterectomy by Dr. Nam and Dr. Mccabe recently. Basal cell carcinoma of the nose, Dr. Estrada History of left total knee replacement. History of Paniagua's esophagus treated with ablation REVIEW OF SYSTEMS: CONSTITUTIONAL: No night sweats. No fatigue, malaise, lethargy. No fever or chills. HEENT: Eyes: No visual changes. No eye pain. No eye discharge. ENT: No runny nose. No epistaxis. No sinus pain. No sore throat. No odynophagia. No ear pain. No congestion. RESPIRATORY: No cough, no congestion. No hemoptysis. No shortness of breath. CARDIOVASCULAR: No angina symptoms. No CHF symptoms. No atypical chest pain for CAD. No palpitations. No PND. No orthopnea. GASTROINTESTINAL: No abdominal pain. No nausea or vomiting. No diarrhea or constipation. No hematemesis. No hematochezia. GENITOURINARY: No urgency. No frequency. No dysuria. No hematuria. No obstructive symptoms. No discharge. No pain. No significant abnormal bleeding. MUSCULOSKELETAL: Sacral fracture. NEUROLOGICAL: No headache. No neck pain. No syncope. No seizures. No dizziness. PSYCHIATRIC: Not anxious. No depression. No suicidal thoughts. No homicidal thoughts. SKIN: No rash. No lesions. No wounds. ENDOCRINE: No unexplained weight loss. No weight gain. HEMATOLOGIC/LYMPHATIC: No anemia. No purpura. No petechiae. No prolonged or excessive bleeding. No palpable lymph nodes. PERSONAL/FAMILY/SOCIAL HISTORY: The patient is living by herself with the help of son. She incontinent of urine. She practically does all activity of daily living. She walks with a cane. She is DNI. Nonsmoker. No history of alcohol abuse. MEDICATIONS: Atorvastatin 40 mg p.o. daily Clopidogrel 75 mg daily Gabapentin daily Levofloxin 100 mcg p.o. daily Lisinopril 20 mg daily, was on 40 mg p.o. q.a.m. Zoloft 50 mg daily Zofran 4 mg p.o. twice a day Cymbalta 30 mg p.o. daily ALLERGIES: CELEBREX, TRAMADOL PHYSICAL EXAMINATION: GENERAL: The patient is oriented to time, place and person. VITAL SIGNS: Temperature 98, pulse 65, respiratory rate 15, BP 138/70, pulse ox 92% on room air. HEENT: Looks somewhat pale. Face is symmetrical. Head normocephalic, atraumatic. Eyes: Extraocular muscles are intact. Pupils are equal, round and reactive to light and accommodation. Ears: No lesions. Nose appeared normal. Throat: No exudate or erythema. NECK: Supple. No JVD, no carotid bruit. No lymphadenopathy or thyromegaly. LUNGS: Clear to auscultation. Percussion note normal. Chest symmetrical. HEART: S1, S2, no S3. No murmur. No cyanosis or clubbing. No ascites. Pulses: Dorsalis pedis and posterior tibial pulses +1 to +2 bilaterally. ABDOMEN: Soft. Nontender. Bowel sounds active. No CVA tenderness. No mass felt. EXTREMITIES: Tenderness in the sacral area. No edema. Full range of motion of all extremities, equal. NEUROLOGIC: No focal deficit. Cranial nerves II through XII are grossly intact. No headache, no double vision or headache. SKIN: Not dry. Intact. Turgor - normal. LYMPHATIC: No palpable lymph nodes/no lymphedema. MUSCULOSKELETAL: Normal joints with no swelling. Muscle tone is normal. LABS/IMAGING: Hemoglobin 11, hematocrit 35, WBC 7,000 with normal differential. Creatinine, BUN and potassium all normal. Covid negative. T4 0.76, TSH 22 which is high. Troponin negative. Estimated GFR 83 cc/min. X-ray showed fracture of the S4 with DJD spine. ASSESSMENT: 1. S4 fracture, caused by accident. No neurological deficit. 2. Closed head injury. 3. History of hypothyroidism. 4. Depression. 5. Dyslipidemia. 6. Reflux disease. 7. History of Paniagua's esophagus treated with ablation. May need EGD or further testing. The last one was done in August 2014. 8. History of left total knee replacement. 9. History of early dementia. 10. History of right carotid endartarectomy by Dr. Nam and Dr. Mccabe recently. 11. Basal cell carcinoma of the nose, Dr. Estrada Of note: The patient's BUN and creatinine ratio was high. There is some evidence of dehydration so will give IV fluids, watch for fluid overload. Of note: The patient has one kidney. PLAN: 1. Hospitalize the patient. 2. Telemetry. 3. Routine labs. 4. Will get a UA sensitivity. 5. Increase the Levothyroxine to 125 mg p.o. daily. The patient is not taking the Levothyroxine regularly. 6. One dose of Rocephin. 7. Continue the rest of the home medications. 8. IV fluids 75 cc/hr. 9. The patient is given Oxycodone for pain q.6hr along with Zanaflex. 10. If needed Toradol 30 mg IV will be given. CONDITION: Stable. TIME SPENT: More than 70 minutes. MTDD
--- NOTE | 2020-12-13 10:38 | PN ---
DATE OF SERVICE: 12/12/20 SUBJECTIVE: 85-year-old white female hospitalized with S4 fracture and possibility of UTI. The patient had fallen with cane getting caught up. She has history of head injury, concussion. The patient's overall neurological status is stable. REVIEW OF SYSTEMS: CONSTITUTIONAL: No night sweats. No fatigue, malaise, lethargy. No fever or chills. HEENT: Eyes: No visual changes. No eye pain. No eye discharge. ENT: No runny nose. No epistaxis. No sinus pain. No sore throat. No odynophagia. No congestion. RESPIRATORY: No cough, no congestion. No hemoptysis. No shortness of breath. CARDIOVASCULAR: No angina symptoms. No CHF symptoms. No atypical chest pain for CAD. No palpitations. No PND. No orthopnea. GASTROINTESTINAL: No abdominal pain. No nausea or vomiting. No diarrhea or constipation. No hematemesis. No hematochezia. GENITOURINARY: No urgency. No frequency. No dysuria. No hematuria. No obstructive symptoms. No discharge. No pain. No significant abnormal bleeding. MUSCULOSKELETAL: No musculoskeletal pain; no joint swelling. NEUROLOGICAL: Oriented to time, place and person. She talks fluently. No headache. No neck pain. No syncope. No seizures. No dizziness. PSYCHIATRIC: Not anxious. No depression. No suicidal thoughts. No homicidal thoughts. SKIN: No rash. No lesions. No wounds. ENDOCRINE: No unexplained weight loss. No weight gain. HEMATOLOGIC/LYMPHATIC: No anemia. No purpura. No petechiae. No prolonged or excessive bleeding. No palpable lymph nodes. PHYSICAL EXAMINATION: GENERAL: The patient seems to be quite alert and smart. VITAL SIGNS: Temperature 97.7, pulse 54, respiratory rate 18, BP 130/70, pulse ox 92%. HEENT: Head normocephalic, atraumatic. Eyes: Extraocular muscles are intact. Pupils are equal, round and reactive to light and accommodation. Ears: No lesions. Nose appeared normal. Throat: No exudate or erythema. NECK: Supple. No JVD, no carotid bruit. No lymphadenopathy or thyromegaly. LUNGS: Decreased breath sounds but clear to auscultation. Percussion note normal. Chest symmetrical. HEART: S1, S2, no S3. No murmurs. No cyanosis or clubbing. No ascites. Pulses: Dorsalis pedis and posterior tibial pulses +1 to +2 bilaterally. ABDOMEN: Soft. Nontender. Bowel sounds active. No CVA tenderness. No mass felt. EXTREMITIES: No edema. Full range of motion of all extremities, equal. NEUROLOGIC: Normal. No focal deficit. Cranial nerves II through XII are grossly intact. No headache. No double vision. SKIN: Not dry. Intact. Turgor - normal. LYMPHATIC: No palpable lymph nodes/no lymphedema. MUSCULOSKELETAL: Normal joints with no swelling. Muscle tone is normal. LABS: Hemoglobin 11.5, hematocrit 35, WBC 7,000, normal differential. Creatinine 0.6, BUN 26, potassium 3.9. Glucose 85. ASSESSMENT: 1. S4 fracture. The pain is more or less controlled with Oxycodone. PLAN: 1. Will give Toradol 30 mg IV if needed. 2. Levothyroxine raised to 125 mg. 3. T4, TSH to be repeated on 12/12/20. 4. A1C to be done. 5. Neurological status is stable. TIME SPENT: More than 30 minutes. Plan and coordination of the patient's care discussed in the presence of nurse. COURTNEY
[2020-12-13] MEDS: LEVAQUIN 250 MG/50 ML D5W 250 MG/50 ML BAG IV SCH (11:42)
[2020-12-13] MEDS: NEURONTIN PO SCH (20:39)
[2020-12-13] MEDS ORDERED: LEVAQUIN 500 MG/100 ML D5W 500 MG/100 ML BAG IV SCH (21:00)
[2020-12-14] MEDS: SYNTHROID PO SCH ×2 (05:38→05:39)
[2020-12-14] MEDS: PROTONIX PO SCH (05:39)
[2020-12-14 06:20] LABS: ALANINE AMINOTRANSFERASE 15.5 U/L (0-35); ALBUMIN 3.1 g/dL (3.5-5.0); ALKALINE PHOSPHATASE 50.3 U/L (53-141); ASPARTATE AMINO TRANSFERASE 26.4 U/L (14-36); BASOPHILS # (AUTO) 0.1 K/uL (0-0.2); BASOPHILS % (AUTO) 0.9 % (0.0-3.0); BILIRUBIN,TOTAL 0.4 mg/dL (0.2-1.3); BLOOD UREA NITROGEN 18.1 mg/dL (7-17); CALCIUM 9.28 mg/dL (8.4-10.2); CHLORIDE 109.2 mmol/L (98-107); CREATININE 0.75 mg/dL (0.60-1.30); EOSINOPHILS # (AUTO) 0.3 K/ul (0.0-0.7); EOSINOPHILS % (AUTO) 4.6 % (0.0-7.0); HEMATOCRIT 35.9 % (37.0-47.0); HEMOGLOBIN 11.5 g/dl (12.0-16.0); IMMATURE GRANULOCYTE % (AUTO) 0.2 % (0.0-5.0); LYMPHOCYTES # (AUTO) 1.3 K/uL (0.60-3.4); LYMPHOCYTES % (AUTO) 22.5 (10.0-50.0); MONOCYTES # (AUTO) 0.4 K/uL (0.4-2.0); MONOCYTES % (AUTO) 6.8 (0-10); NEUTROPHILS # (AUTO) 3.7 K/ul (2.0-6.9); PLATELET COUNT 137 10^3/uL (140-440); POTASSIUM 4.4 mmol/L (3.5-5.1); RED BLOOD COUNT 3.59 10^6/ul (4.20-5.40); SODIUM 138.6 mmol/L (134.5-145); TOTAL PROTEIN 5.39 g/dL (6.3-8.2)
[2020-12-14] MEDS: CYMBALTA PO SCH (09:26)
[2020-12-14] MEDS: ZESTRIL PO SCH (09:26)
[2020-12-14] MEDS: COLACE PO SCH (09:26)
[2020-12-14] MEDS: ZOLOFT PO SCH (09:26)
[2020-12-14] MEDS: LEVAQUIN 250 MG/50 ML D5W 250 MG/50 ML BAG IV SCH (09:26)
[2020-12-14] MEDS: PLAVIX PO SCH (09:26)
[2020-12-14] MEDS: LIPITOR PO SCH (09:26)
[2020-12-14] MEDS: PERCOCET 5-325 PO SCH ×2 (10:00→20:04)
[2020-12-14] MEDS: ANTIVERT PO SCH ×2 (10:00→20:04)
--- NOTE | 2020-12-14 10:35 | PCM.PROG ---
Attending Provider: ATTENDING PROVIDER: Dr. LUCIAN RUDD This patient is seen with Simi Ibarra, Nurse Practitioner. DATE OF SERVICE: 12/14/20 SUBJECTIVE: This 85 year old /WHITE F was hospitalized 12/11/20. The patient is resting comfortably. The patient has still been in pain. Pain medication has been PRN we will make is scheduled. Eating well. Still having dizzy spells. Had carotid ultrasound in November at [facility]. REVIEW OF SYSTEMS: CONSTITUTIONAL: No night sweats. No fatigue, malaise, lethargy. No fever or chills. Weakness HEENT: Eyes: No visual changes. No eye pain. No eye discharge. ENT: No runny nose. No epistaxis. No sinus pain. No odynophagia. No congestion. RESPIRATORY: No cough, no congestion. No hemoptysis. No shortness of breath. CARDIOVASCULAR: No angina symptoms. No CHF symptoms. No atypical chest pain for CAD. No palpitations. No orthopnea.. GASTROINTESTINAL: No abdominal pain. No nausea or vomiting. No diarrhea or constipation. No hematemesis. No hematochezia. GENITOURINARY: No urgency. No frequency. No dysuria. No hematuria. No obstructive symptoms. No discharge. No pain. No significant abnormal bleeding. MUSCULOSKELETAL: No musculoskeletal pain; no joint swelling. Pain. NEUROLOGICAL: Awake, alert, oriented to time, place and person. No headache. No neck pain. No syncope. No seizures. Dizziness. PSYCHIATRIC: Not anxious. No depression. No suicidal thoughts. No homicidal thoughts. SKIN: No rash. No lesions. No wounds. ENDOCRINE: No unexplained weight loss. No weight gain. HEMATOLOGIC/LYMPHATIC: No anemia. No purpura. No petechiae. No prolonged or excessive bleeding. No palpable lymph nodes. PHYSICAL EXAMINATION: GENERAL: The patient is awake, alert and oriented, lying in bed in no distress. VITAL SIGNS: Temperature 98.0 F, Pulse 73, Respiratory Rate 18, BP 179/86, Pulse Ox 98% HEENT: Head normocephalic, atraumatic. Eyes: Extraocular muscles are intact. Pupils are equal, round and reactive to light and accommodation. Ears: No lesions. Nose appeared normal. Throat: No exudate or erythema. NECK: Supple. No JVD, no carotid bruit. No lymphadenopathy or thyromegaly. LUNGS: Diminished breath sounds. Clear to auscultation. Percussion note normal. Chest symmetrical. HEART: S1, S2, no S3. No murmurs. No cyanosis or clubbing. No ascites. Pulses: Dorsalis pedis and posterior tibial pulses +1 to +2 both sides. ABDOMEN: Soft. Non-tender. Bowel sounds active. No CVA tenderness. No mass felt. EXTREMITIES: No edema. Full range of motion of all extremities, equal. NEUROLOGIC: No focal deficit. Cranial nerves II through XII are grossly intact. No headache. No double vision. SKIN: Not dry. Intact. Turgor-normal. LYMPHATIC: No palpable lymph nodes/no lymphedema. MUSCULOSKELETAL: Normal joints with no swelling. Muscle tone is normal. LAB REVIEW: 12/14/20 05:34 12/14/20 05:34 12/14/20 05:34: Sodium 138.6, Potassium 4.40, Chloride 109.2 H, Carbon Dioxide 26.0, Anion Gap 7.80, BUN 18.1 H, Creatinine 0.75, Estimated GFR (MDRD) 73.00, BUN/Creatinine Ratio 24.13, Glucose 85.0, Calcium 9.28, Total Bilirubin 0.40, AST 26.4, ALT 15.5, Alkaline Phosphatase 50.3 L, Total Protein 5.39 L, Albumin 3.10 L, Globulin 2.29, Albumin/Globulin Ratio 1.35 12/14/20 05:34: WBC 5.70, RBC 3.59 L, Hgb 11.5 L, Hct 35.9 L, MCV 100.0 H, MCH 32.0 H, MCHC 32.0, RDW Coeff of Mookie 14.0, Plt Count 137 L, Immature Gran % (Auto) 0.2, Neut % (Auto) 65.0, Lymph % (Auto) 22.5, [place] % (Auto) 6.8, Eos % (Auto) 4.6, Baso % (Auto) 0.9, Neut # (Auto) 3.7, Lymph # (Auto) 1.3, [place] # (Auto) 0.4, Eos # (Auto) 0.3, Baso # (Auto) 0.1, Immature Gran # (Auto) 0.0 12/14/20 05:34: TSH 20.200 H 12/14/20 05:34: Free T4 1.05 ASSESSMENT: Please see below. 1. Right shoulder pain 2. Lower back pain 3. UTI, E-coli 4. Hypertension PLAN: 1. Make Percocet BID scheduled 2. Continue IV antibiotics through weekend 3. Orthostatic blood pressure. Plan and coordination of the patient's care discussed in the presence of [employer]let Crusher [employer]her and nurse. SCRIBED BY: MERNA SALINAS Coffee Maker scribed while in presence of service performed by Dr. Rudd/Simi Ibarra APRN on 12/14/20 ([id number])
[2020-12-14] MEDS: NEURONTIN PO SCH (20:04)
[2020-12-14] MEDS ORDERED: ANTIVERT PO SCH (21:00)
[2020-12-14] MEDS ORDERED: PERCOCET 5-325 PO SCH (21:00)
[2020-12-14] MEDS: ZANAFLEX PO PRN (22:35)
[2020-12-15 05:54] LABS: BASOPHILS # (AUTO) 0.1 K/uL (0-0.2); BASOPHILS % (AUTO) 1.1 % (0.0-3.0); EOSINOPHILS # (AUTO) 0.3 K/ul (0.0-0.7); HEMATOCRIT 33.3 % (37.0-47.0); HEMOGLOBIN 10.8 g/dl (12.0-16.0); IMMATURE GRANULOCYTE % (AUTO) 0.2 % (0.0-5.0); LYMPHOCYTES # (AUTO) 1.4 K/uL (0.60-3.4); LYMPHOCYTES % (AUTO) 30.8 (10.0-50.0); MEAN CORPUSCULAR HEMOGLOBIN 32.1 pg (27.0-31.0); MEAN CORPUSCULAR HGB CONC 32.4 (31.8-35.4); MEAN CORPUSCULAR VOLUME 99.1 fl (81.0-99.0); MONOCYTES # (AUTO) 0.4 K/uL (0.4-2.0); MONOCYTES % (AUTO) 7.8 (0-10); NEUTROPHILS # (AUTO) 2.4 K/ul (2.0-6.9); NEUTROPHILS % (AUTO) 54.1 % (42.2-75.2); PLATELET COUNT 140 10^3/uL (140-440); RDW COEFFICIENT OF VARIATION 13.8 % (11.6-14.8); RED BLOOD COUNT 3.36 10^6/ul (4.20-5.40); WHITE BLOOD COUNT 4.51 K/ul (4.6-10.2)
[2020-12-15] MEDS: PROTONIX PO SCH (05:58)
[2020-12-15] MEDS: SYNTHROID PO SCH ×2 (05:58)
[2020-12-15 06:04] LABS: ALANINE AMINOTRANSFERASE 12.5 U/L (0-35); ALBUMIN 3.1 g/dL (3.5-5.0); ALKALINE PHOSPHATASE 47.6 U/L (53-141); ASPARTATE AMINO TRANSFERASE 23.7 U/L (14-36); BILIRUBIN,TOTAL 0.4 mg/dL (0.2-1.3); BLOOD UREA NITROGEN 21.2 mg/dL (7-17); CALCIUM 9.62 mg/dL (8.4-10.2); CARBON DIOXIDE 28.5 mmol/L (22-30.0); CHLORIDE 104.7 mmol/L (98-107); CREATININE 0.78 mg/dL (0.60-1.30); GLUCOSE 83.6 mg/dL (74-106); POTASSIUM 4.34 mmol/L (3.5-5.1); SODIUM 136.5 mmol/L (134.5-145); TOTAL PROTEIN 5.33 g/dL (6.3-8.2)
[2020-12-15] MEDS ORDERED: CATAPRES PO STA (06:41)
[2020-12-15] MEDS: LEVAQUIN 250 MG/50 ML D5W 250 MG/50 ML BAG IV SCH (09:40)
[2020-12-15] MEDS: PLAVIX PO SCH (09:40)
[2020-12-15] MEDS: PERCOCET 5-325 PO SCH ×2 (09:40→20:23)
[2020-12-15] MEDS: CYMBALTA PO SCH (09:40)
[2020-12-15] MEDS: COLACE PO SCH (09:40)
[2020-12-15] MEDS: LIPITOR PO SCH (09:41)
[2020-12-15] MEDS: ANTIVERT PO SCH ×2 (09:41→20:22)
[2020-12-15] MEDS: ZOLOFT PO SCH (09:41)
[2020-12-15] MEDS: ZESTRIL PO SCH (09:41)
[2020-12-15] MEDS: NEURONTIN PO SCH (20:23)
[2020-12-16 05:50] LABS: BASOPHILS % (AUTO) 0.9 % (0.0-3.0); EOSINOPHILS # (AUTO) 0.2 K/ul (0.0-0.7); EOSINOPHILS % (AUTO) 4.9 % (0.0-7.0); HEMOGLOBIN 11.4 g/dl (12.0-16.0); IMMATURE GRANULOCYTE % (AUTO) 0.2 % (0.0-5.0); LYMPHOCYTES # (AUTO) 1.2 K/uL (0.60-3.4); LYMPHOCYTES % (AUTO) 28.8 (10.0-50.0); MEAN CORPUSCULAR HEMOGLOBIN 31.5 pg (27.0-31.0); MEAN CORPUSCULAR HGB CONC 31.7 (31.8-35.4); MEAN CORPUSCULAR VOLUME 99.4 fl (81.0-99.0); MONOCYTES # (AUTO) 0.3 K/uL (0.4-2.0); MONOCYTES % (AUTO) 7.5 (0-10); NEUTROPHILS # (AUTO) 2.5 K/ul (2.0-6.9); NEUTROPHILS % (AUTO) 57.7 % (42.2-75.2); PLATELET COUNT 144 10^3/uL (140-440); RDW COEFFICIENT OF VARIATION 13.9 % (11.6-14.8); RED BLOOD COUNT 3.62 10^6/ul (4.20-5.40); WHITE BLOOD COUNT 4.27 K/ul (4.6-10.2)
[2020-12-16] MEDS: SYNTHROID PO SCH ×2 (05:56)
[2020-12-16] MEDS: PROTONIX PO SCH (05:56)
[2020-12-16 06:05] LABS: ALANINE AMINOTRANSFERASE 12.4 U/L (0-35); ALBUMIN 3.29 g/dL (3.5-5.0); ASPARTATE AMINO TRANSFERASE 25.9 U/L (14-36); BILIRUBIN,TOTAL 0.6 mg/dL (0.2-1.3); CALCIUM 9.63 mg/dL (8.4-10.2); CARBON DIOXIDE 31.2 mmol/L (22-30.0); CHLORIDE 102.1 mmol/L (98-107); CREATININE 0.83 mg/dL (0.60-1.30); GLUCOSE 79.8 mg/dL (74-106); POTASSIUM 4.09 mmol/L (3.5-5.1); SODIUM 138.9 mmol/L (134.5-145); TOTAL PROTEIN 5.77 g/dL (6.3-8.2)
[2020-12-16] MEDS: MILK OF MAGNESIA PO PRN (08:58)
[2020-12-16] MEDS: CYMBALTA PO SCH (08:58)
[2020-12-16] MEDS: LIPITOR PO SCH (08:58)
[2020-12-16] MEDS: PLAVIX PO SCH (08:58)
[2020-12-16] MEDS: COLACE PO SCH (08:58)
[2020-12-16] MEDS: ZOLOFT PO SCH (08:59)
[2020-12-16] MEDS: ZESTRIL PO SCH ×2 (08:59→20:00)
[2020-12-16] MEDS: PERCOCET 5-325 PO SCH ×2 (08:59→19:59)
[2020-12-16] MEDS: ANTIVERT PO SCH ×2 (08:59→20:00)
[2020-12-16] MEDS: LEVAQUIN 250 MG/50 ML D5W 250 MG/50 ML BAG IV SCH (08:59)
[2020-12-16] MEDS ORDERED: CATAPRES PO PRN (12:38)
[2020-12-16] MEDS: NEURONTIN PO SCH (20:00)
[2020-12-17 05:07] LABS: BASOPHILS # (AUTO) 0.1 K/uL (0-0.2); EOSINOPHILS # (AUTO) 0.2 K/ul (0.0-0.7); EOSINOPHILS % (AUTO) 4.2 % (0.0-7.0); IMMATURE GRANULOCYTE % (AUTO) 0.4 % (0.0-5.0); LYMPHOCYTES # (AUTO) 1.5 K/uL (0.60-3.4); LYMPHOCYTES % (AUTO) 31.4 (10.0-50.0); MEAN CORPUSCULAR HEMOGLOBIN 32.2 pg (27.0-31.0); MEAN CORPUSCULAR HGB CONC 32.4 (31.8-35.4); MEAN CORPUSCULAR VOLUME 99.2 fl (81.0-99.0); MONOCYTES # (AUTO) 0.4 K/uL (0.4-2.0); MONOCYTES % (AUTO) 7.8 (0-10); NEUTROPHILS # (AUTO) 2.6 K/ul (2.0-6.9); NEUTROPHILS % (AUTO) 55.2 % (42.2-75.2); PLATELET COUNT 164 10^3/uL (140-440); RDW COEFFICIENT OF VARIATION 13.9 % (11.6-14.8); RED BLOOD COUNT 3.73 10^6/ul (4.20-5.40); WHITE BLOOD COUNT 4.77 K/ul (4.6-10.2)
[2020-12-17 05:22] LABS: ALANINE AMINOTRANSFERASE 11.8 U/L (0-35); ALBUMIN 3.54 g/dL (3.5-5.0); ALKALINE PHOSPHATASE 53.4 U/L (53-141); BILIRUBIN,TOTAL 0.61 mg/dL (0.2-1.3); BLOOD UREA NITROGEN 24.6 mg/dL (7-17); CALCIUM 9.7 mg/dL (8.4-10.2); CREATININE 0.79 mg/dL (0.60-1.30); GLUCOSE 89.9 mg/dL (74-106); POTASSIUM 4.32 mmol/L (3.5-5.1); SODIUM 136.3 mmol/L (134.5-145); TOTAL PROTEIN 6.12 g/dL (6.3-8.2)
[2020-12-17] MEDS: PROTONIX PO SCH (06:00)
[2020-12-17] MEDS: SYNTHROID PO SCH ×2 (06:00)
[2020-12-17] MEDS: ZESTRIL PO SCH ×2 (08:37→20:49)
[2020-12-17] MEDS: PLAVIX PO SCH (08:37)
[2020-12-17] MEDS: COLACE PO SCH (08:37)
[2020-12-17] MEDS: PERCOCET 5-325 PO SCH ×2 (08:37→20:49)
[2020-12-17] MEDS: MILK OF MAGNESIA PO PRN (08:37)
[2020-12-17] MEDS: LIPITOR PO SCH (08:37)
[2020-12-17] MEDS: ZOLOFT PO SCH (08:38)
[2020-12-17] MEDS: ANTIVERT PO SCH ×2 (08:38→20:49)
[2020-12-17] MEDS: LEVAQUIN 250 MG/50 ML D5W 250 MG/50 ML BAG IV SCH (08:38)
[2020-12-17] MEDS: CYMBALTA PO SCH (08:38)
[2020-12-17] MEDS: NEURONTIN PO SCH (20:49)
[2020-12-17 21:35] VITALS: TEMP 98.3
[2020-12-18 04:32] LABS: BASOPHILS # (AUTO) 0.1 K/uL (0-0.2); BASOPHILS % (AUTO) 1.4 % (0.0-3.0); EOSINOPHILS # (AUTO) 0.2 K/ul (0.0-0.7); HEMATOCRIT 36.2 % (37.0-47.0); HEMOGLOBIN 11.5 g/dl (12.0-16.0); IMMATURE GRANULOCYTE % (AUTO) 0.2 % (0.0-5.0); LYMPHOCYTES # (AUTO) 1.7 K/uL (0.60-3.4); LYMPHOCYTES % (AUTO) 33.8 (10.0-50.0); MEAN CORPUSCULAR HEMOGLOBIN 31.5 pg (27.0-31.0); MEAN CORPUSCULAR HGB CONC 31.8 (31.8-35.4); MEAN CORPUSCULAR VOLUME 99.2 fl (81.0-99.0); MONOCYTES # (AUTO) 0.4 K/uL (0.4-2.0); MONOCYTES % (AUTO) 8.9 (0-10); NEUTROPHILS # (AUTO) 2.6 K/ul (2.0-6.9); NEUTROPHILS % (AUTO) 51.7 % (42.2-75.2); PLATELET COUNT 178 10^3/uL (140-440); RED BLOOD COUNT 3.65 10^6/ul (4.20-5.40); WHITE BLOOD COUNT 4.94 K/ul (4.6-10.2)
[2020-12-18 04:44] LABS: ALANINE AMINOTRANSFERASE 12.2 U/L (0-35); ALBUMIN 3.66 g/dL (3.5-5.0); ALKALINE PHOSPHATASE 55.1 U/L (53-141); ASPARTATE AMINO TRANSFERASE 31.6 U/L (14-36); BILIRUBIN,TOTAL 0.54 mg/dL (0.2-1.3); BLOOD UREA NITROGEN 25.5 mg/dL (7-17); CALCIUM 9.92 mg/dL (8.4-10.2); CARBON DIOXIDE 31.2 mmol/L (22-30.0); CHLORIDE 100.9 mmol/L (98-107); CREATININE 0.8 mg/dL (0.60-1.30); GLUCOSE 91.7 mg/dL (74-106); POTASSIUM 4.67 mmol/L (3.5-5.1); SODIUM 136.8 mmol/L (134.5-145); TOTAL PROTEIN 6.2 g/dL (6.3-8.2)
[2020-12-18 05:34] VITALS: BP 95/65
[2020-12-18] MEDS: SYNTHROID PO SCH ×2 (05:51→05:52)
[2020-12-18] MEDS: PROTONIX PO SCH (05:52)
[2020-12-18] MEDS: LEVAQUIN 250 MG/50 ML D5W 250 MG/50 ML BAG IV SCH (09:47)
--- NOTE | 2020-12-18 09:48 | PN ---
DATE OF SERVICE: 12/13/2020 SUBJECTIVE: The patient was seen and examined with the Nurse Practitioner. The patient's pain is more or less controlled. Neurological status is stable. She is feeling better. The appetite has improved. The patient was seen and examined with the Nurse Practitioner. The patient is being treated for UTI. Neurological status unchanged and normal. TIME SPENT: More than 30 minutes. Plan and coordination of the patient's care discussed in the presence of nurse. COURTNEY
[2020-12-18] MEDS: PERCOCET 5-325 PO SCH (09:51)
[2020-12-18] MEDS: LIPITOR PO SCH (09:52)
[2020-12-18] MEDS: CYMBALTA PO SCH (09:52)
[2020-12-18] MEDS: COLACE PO SCH (09:52)
[2020-12-18] MEDS: PLAVIX PO SCH (09:52)
[2020-12-18] MEDS: ZESTRIL PO SCH (09:53)
[2020-12-18] MEDS: ANTIVERT PO SCH (09:53)
[2020-12-18] MEDS: ZOLOFT PO SCH (09:53)
--- NOTE | 2020-12-18 11:17 | PCM.PROG ---
Attending Provider: ATTENDING PROVIDER: Dr. LUCIAN RUDD This patient is seen with Simi Ibarra, Nurse Practitioner. DATE OF SERVICE: 12/18/20 SUBJECTIVE: This 85 year old /WHITE F was hospitalized 12/11/20. The patient is resting comfortably. Pain controlled with 5 mg of Oxycodone. The main complaint is shoulder pain, not back pain. The family has expressed interest in the patient going to the [facility]. She is adamant about going home. The family lives close. She has caregivers part of the day. The risk of falls with Oxycodone discussed. REVIEW OF SYSTEMS: CONSTITUTIONAL: No night sweats. No fatigue, malaise, lethargy. No fever or chills. HEENT: Eyes: No visual changes. No eye pain. No eye discharge. ENT: No runny nose. No epistaxis. No sinus pain. No odynophagia. No congestion. RESPIRATORY: No cough, no congestion. No hemoptysis. No shortness of breath. CARDIOVASCULAR: No angina symptoms. No CHF symptoms. No atypical chest pain for CAD. No palpitations. No orthopnea.. GASTROINTESTINAL: No abdominal pain. No nausea or vomiting. No diarrhea or constipation. No hematemesis. No hematochezia. GENITOURINARY: No urgency. No frequency. No dysuria. No hematuria. No obstructive symptoms. No discharge. No pain. No significant abnormal bleeding. MUSCULOSKELETAL: Right shoulder pain. NEUROLOGICAL: Awake, alert, oriented to time, place and person. No headache. No neck pain. No syncope. No seizures. No dizziness. PSYCHIATRIC: Not anxious. No depression. No suicidal thoughts. No homicidal thoughts. SKIN: No rash. No lesions. No wounds. ENDOCRINE: No unexplained weight loss. No weight gain. HEMATOLOGIC/LYMPHATIC: No anemia. No purpura. No petechiae. No prolonged or excessive bleeding. No palpable lymph nodes. PHYSICAL EXAMINATION: GENERAL: The patient is awake, alert and oriented, lying/sitting in bed in no distress. VITAL SIGNS: Temperature 98.3 F, Pulse 94, Respiratory Rate 16, BP 95/65, Pulse Ox 93% HEENT: Head normocephalic, atraumatic. Eyes: Extraocular muscles are intact. Pupils are equal, round and reactive to light and accommodation. Ears: No lesions. Nose appeared normal. Throat: No exudate or erythema. NECK: Supple. No JVD, no carotid bruit. No lymphadenopathy or thyromegaly. LUNGS: Diminished breath sounds. Clear to auscultation. Percussion note normal. Chest symmetrical. HEART: S1, S2, no S3. No murmurs. No cyanosis or clubbing. No ascites. Pulses: Dorsalis pedis and posterior tibial pulses +1 to +2 both sides. ABDOMEN: Soft. Non-tender. Bowel sounds active. No CVA tenderness. No mass felt. EXTREMITIES: No edema. Full range of motion of all extremities, equal. NEUROLOGIC: No focal deficit. Cranial nerves II through XII are grossly intact. No headache. No double vision. SKIN: Not dry. Intact. Turgor-normal. LYMPHATIC: No palpable lymph nodes/no lymphedema. MUSCULOSKELETAL: Normal joints with no swelling. Muscle tone is normal. LAB REVIEW: 12/18/20 04:30 12/18/20 04:30 12/18/20 04:30: Sodium 136.8, Potassium 4.67, Chloride 100.9, Carbon Dioxide 31.2 H, Anion Gap 9.37, BUN 25.5 H, Creatinine 0.80, Estimated GFR (MDRD) 68.00, BUN/Creatinine Ratio 31.87, Glucose 91.7, Calcium 9.92, Total Bilirubin 0.54, AST 31.6, ALT 12.2, Alkaline Phosphatase 55.1, Total Protein 6.20 L, Albumin 3.66, Globulin 2.54, Albumin/Globulin Ratio 1.44 12/18/20 04:30: WBC 4.94, RBC 3.65 L, Hgb 11.5 L, Hct 36.2 L, MCV 99.2 H, MCH 31.5 H, MCHC 31.8, RDW Coeff of Mookie 14.0, Plt Count 178, Immature Gran % (Auto) 0.2, Neut % (Auto) 51.7, Lymph % (Auto) 33.8, [place] % (Auto) 8.9, Eos % (Auto) 4.0, Baso % (Auto) 1.4, Neut # (Auto) 2.6, Lymph # (Auto) 1.7, [place] # (Auto) 0.4, Eos # (Auto) 0.2, Baso # (Auto) 0.1, Immature Gran # (Auto) 0.0 ASSESSMENT: Please see below. 1. Right shoulder pain 2. Lower back pain 3. UTI, E-coli 4. Hypertension PLAN: 1. Stop Clonidine. 2. Increase Zestril to twice a day. 3. Discharge home. 4. The patient would benefit from Home Health, PT/OT. 5. The risk of falls with Oxycodone discussed. 6. Followup in office next week. Plan and coordination of the patient's care discussed in the presence of Steward/Stewardess Second Class and nurse. CONDITION: Stable SCRIBED BY: CULLEN GILL Supervisor [employer] Fin[employer] scribed while in presence of service performed by Dr. Rudd/Simi Ibarra APRN on 12/18/20 ([id number])
--- NOTE | 2020-12-18 13:06 | CM.DICTOOL ---
ADMISSION: 12/11/20 19:54 DISCHARGE: 2020 DATE OF SERVICE: 12/18/20 FINAL DIAGNOSIS ACUTE S4 FRACTURE CLOSED HEAD INJURY S/P FALL RIGHT SHOULDER PAIN URINARY TRACT INFECTION, E-COLI CAD HYPERTENSION HYPOTHYROIDISM VERTIGO HIGH LIPIDS GERD DEPRESSION OSTEOARTHRITIS, BILATERAL HIPS LANDRY'S ESOPHAGUS PARTIAL HYSTERECTOMY LEFT HIP FRACTURE WITH FIXATION LEFT KNEE SURGERY X 4 BASAL CELL CARCINOMA EXCISION, NOSE CAROTID ENDARTERECTOMY, RIGHT LAST VITALS Temp Pulse Resp BP Pulse Ox 98.3 F 86 16 95/65 93 L 12/18/20 05:28 12/18/20 08:00 12/18/20 05:28 12/18/20 05:32 12/18/20 05:28 TAKE THESE MEDICATIONS AT HOME Atorvastatin Calcium (Atorvastatin Calcium 20 Mg Tablet) 40 mg PO DAILY [facility] Last Admin: 12/18/20 09:52 Dose: 40 mg Documented by: Clopidogrel Bisulfate (Clopidogrel Bisulfate 75 Mg Tablet) 75 mg PO DAILY [facility] Last Admin: 12/18/20 09:52 Dose: 75 mg Documented by: Docusate Sodium (Docusate Sodium 100 Mg Capsule) 100 mg PO BID [facility] (NEW RX) Last Admin: 12/18/20 09:52 Dose: 100 mg Documented by: Duloxetine HCl (Duloxetine Hcl 30 Mg Capsule.Dr) 30 mg PO DAILY [facility] Last Admin: 12/18/20 09:52 Dose: 30 mg Documented by: Gabapentin (Gabapentin 100 Mg Capsule) 300 mg PO BEDTIME [facility] Last Admin: 12/17/20 20:49 Dose: 300 mg Documented by: Levofloxacin 250 MG PO DAILY FOR 5 DAYS (NEW RX) Last Admin: 12/18/20 09:47 Dose: 50 mls/hr Documented by: Levothyroxine Sodium (Levothyroxine Sodium 125 Mcg Tablet) 125 mcg PO QDAC [facility] (NEW RX) Last Admin: 12/18/20 05:51 Dose: 125 mcg Documented by: Lisinopril (Lisinopril 10 Mg Tablet) 20 mg PO BID [facility] (NEW RX) Last Admin: 12/18/20 09:53 Dose: 20 mg Documented by: Meclizine HCl (Meclizine Hcl 25 Mg Tablet) 25 mg PO BID [facility] (NEW RX) Last Admin: 12/18/20 09:53 Dose: 25 mg Documented by: Oxycodone/Acetaminophen (Oxycodone/Acetaminophen 5/325 Mg Tablet) 1 tab PO BID MONICA (NEW RX) Last Admin: 12/18/20 09:51 Dose: 1 tab Documented by: Pantoprazole Sodium (Pantoprazole Sodium 40 Mg Tablet.) 40 mg PO QDAC [facility] Last Admin: 12/18/20 05:52 Dose: 40 mg Documented by: Sertraline HCl (Sertraline Hcl 50 Mg Tablet) 50 mg PO DAILY [facility] Last Admin: 12/18/20 09:53 Dose: 50 mg Documented by: Tizanidine HCl (Tizanidine Hcl 4 Mg Tablet) 4 mg PO BID PRN PRN Reason: Spasms Last Admin: 12/14/20 22:35 Dose: 4 mg Documented by: ALLERGIES celecoxib [From Celebrex] Adverse Reaction (Verified 12/11/20 14:07) tramadol HCl [From Ultram] Adverse Reaction (Verified 12/11/20 14:07) LIPS SWELL DISCONTINUED MEDICATIONS TIROSINT (LEVOTHYROXINE 100 MCG) ZESTRIL (LISINOPRIL) DAILY NEW PRESCRIPTIONS: LEVAQUIN 250 MG DAILY FOR 5 DAYS SYNTHROID 125 MCG DAILY ZESTRIL 20 MG BID COLACE 100 MG BID PERCOCET 5-325 MG BID MECLIZINE 25 MG BID SMOKING: NOT APPLICABLE DISEASE SPECIFIC EDUCATION: HOME HEALTH FOR THERAPY MEDICATION ACTIVITY LAB REVIEW: 12/18/20 04:30 12/18/20 04:30 12/18/20 04:30: Sodium 136.8, Potassium 4.67, Chloride 100.9, Carbon Dioxide 31.2 H, Anion Gap 9.37, BUN 25.5 H, Creatinine 0.80, Estimated GFR (MDRD) 68.00, BUN/Creatinine Ratio 31.87, Glucose 91.7, Calcium 9.92, Total Bilirubin 0.54, AST 31.6, ALT 12.2, Alkaline Phosphatase 55.1, Total Protein 6.20 L, Albumin 3.66, Globulin 2.54, Albumin/Globulin Ratio 1.44 12/18/20 04:30: WBC 4.94, RBC 3.65 L, Hgb 11.5 L, Hct 36.2 L, MCV 99.2 H, MCH 31.5 H, MCHC 31.8, RDW Coeff of Mookie 14.0, Plt Count 178, Immature Gran % (Auto) 0.2, Neut % (Auto) 51.7, Lymph % (Auto) 33.8, [place] % (Auto) 8.9, Eos % (Auto) 4.0, Baso % (Auto) 1.4, Neut # (Auto) 2.6, Lymph # (Auto) 1.7, [place] # (Auto) 0.4, Eos # (Auto) 0.2, Baso # (Auto) 0.1, Immature Gran # (Auto) 0.0 PLAN: DISCHARGE: HOME, PATIENT DECLINES SHORT TERM PLACEMENT FOR THERAPY (DAUGHTER TRANSPORTING) DIET: REGULAR TOLERATED ACTIVITY: UP WITH CANE OR WALKER IN APARTMENT A HOME HEALTH REFERRAL HAS BEEN MADE TO [facility] IN [place], [place] REFERRAL IS FOR NURSING ASSESSMENT (MEDICATIONS, VITAL SIGNS, NUTRITION) AND PHYSICAL AND OCCUPATIONAL THERAPY EVALUATE/TREAT AND HOME ASSESSMENT AN APPOINTMENT IS SCHEDULED WITH DR. RUDD/YAMINI BOJORQUEZ APRN/LATRICE SOLIMAN APRN ON AT 2:15 PM CODE STATUS: DO NOT INTUBATE; CPR ONLY MS. GOINS IS ALERT TO PERSON, PLACE AND SITUATION. SHE IS FORGETFUL AT TIMES AND HAS TROUBLE REMEMBERING RECENT CONVERSATIONS. 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 SHE LIVES ALONE AND REPORTS SHE HAS A HOMEMAKER THREE TIMES A WEEK FOR 2.5 HOURS DAILY. SHE REPORTS SHE FEELS THIS IS SUFFICIENT FOR HER NEEDS. SHE ALSO HAS A SON AND DAUGHTER WHO ARE SUPPORTIVE. MS. GOINS REPORTS SHE HAS A CANE, SHOWER CHAIR, WALKER, BSC, WHEELCHAIR AND A BLOOD PRESSURE CUFF AT HOME. MS. GOINS IS INDEPENDENT WITH FEEDING AND HAS A GOOD APPETITE OF 50-100%. SHE IS CONTINENT OF URINE, BUT EXPERIENCES DRIBBLING WITH URINATION. MS. GOINS IS CONTINENT OF BOWEL. A SMALL BOWEL MOVEMENT WAS NOTED ON THE . SHE AMBULATES TO THE BATHROOM WITH USE OF ROLLING WALKER AND SBA OF 1 STAFF MEMBER. HYDRATION STATUS IS GOOD. SKIN IS INTACT. MD YAMINI SMITH APRN
--- NOTE | 2020-12-18 14:33 | PN ---
DATE OF SERVICE: 12/14/20 SUBJECTIVE: 85-year-old white female was seen and examined with the nurse practitioner. The patient's condition has improved. Neurological status is stable. S4 fracture is not giving her too much pain. UTI is under control. Anemia is stable. No evidence of active GI bleed. TIME SPENT: More than 30 minutes. Plan and coordination of the patient's care discussed in the presence of nurse. COURTNEY
--- NOTE | 2020-12-18 14:40 | PN ---
DATE OF SERVICE: 12/15/20 SUBJECTIVE: 85-year-old white female was seen this morning. The patient's condition has improved remarkably. She is sitting up in the chair reading the newspaper. The pain is well-controlled but still requires narcotic around the clock. The patient's appetite has improved. She is getting more strength. She still needs to improve the nutritional status. REVIEW OF SYSTEMS: CONSTITUTIONAL: No night sweats. No fatigue, malaise, lethargy. No fever or chills. HEENT: Eyes: No visual changes. No eye pain. No eye discharge. ENT: No runny nose. No epistaxis. No sinus pain. No sore throat. No odynophagia. No congestion. RESPIRATORY: No cough, no congestion. No hemoptysis. No shortness of breath. CARDIOVASCULAR: No angina symptoms. No CHF symptoms. No atypical chest pain for CAD. No palpitations. No PND. No orthopnea. GASTROINTESTINAL: No abdominal pain. No nausea or vomiting. No diarrhea or constipation. No hematemesis. No hematochezia. GENITOURINARY: No urgency. No frequency. No dysuria. No hematuria. No obstructive symptoms. No discharge. No pain. No significant abnormal bleeding. MUSCULOSKELETAL: No musculoskeletal pain; no joint swelling. NEUROLOGICAL: No headache. No neck pain. No syncope. No seizures. No dizziness. PSYCHIATRIC: Not anxious. No depression. No suicidal thoughts. No homicidal thoughts. SKIN: No rash. No lesions. No wounds. ENDOCRINE: No unexplained weight loss. No weight gain. HEMATOLOGIC/LYMPHATIC: No anemia. No purpura. No petechiae. No prolonged or excessive bleeding. No palpable lymph nodes. PHYSICAL EXAMINATION: GENERAL: The patient is oriented to time, place and person. VITAL SIGNS: Temperature 97.4, pulse 60, respiratory rate 16, blood pressure 174/78, pulse ox 95%. HEENT: Head normocephalic, atraumatic. Eyes: Extraocular muscles are intact. Pupils are equal, round and reactive to light and accommodation. Ears: No lesions. Nose appeared normal. Throat: No exudate or erythema. NECK: Supple. No JVD, no carotid bruit. No lymphadenopathy or thyromegaly. LUNGS: Decreased breath sounds but clear to auscultation. Percussion note normal. Chest symmetrical. HEART: S1, S2, no S3. No murmurs. No cyanosis or clubbing. No ascites. Pulses: Dorsalis pedis and posterior tibial pulses +1 to +2 bilaterally. ABDOMEN: Soft. Nontender. Bowel sounds active. No CVA tenderness. No mass felt. EXTREMITIES: No edema. Full range of motion of all extremities, equal. NEUROLOGIC: No focal deficit. Cranial nerves II through XII are grossly intact. No headache. No double vision. SKIN: Not dry. Intact. Turgor - normal. LYMPHATIC: No palpable lymph nodes/no lymphedema. MUSCULOSKELETAL: Normal joints with no swelling. Muscle tone is normal. ASSESSMENT: 1. Closed head injury with no neurological deficit. Skull fracture, pain seems to be under control. 2. Anemia stable. The patient's daughter is in the room. She is very happy with the progress. The patient is going to be kept in the hospital with continued observation. 0.1 mg of Clonidine was given because of systolic hypertension which brought the blood pressure is down. CONDITION: Stable. TIME SPENT: More than 30 minutes. Plan and coordination of the patient's care discussed in the presence of nurse. COURTNEY
--- NOTE | 2020-12-18 14:47 | PN ---
DATE OF SERVICE: 12/16/20 SUBJECTIVE: 85-year-old white female hospitalized with fall, closed head injury, S4 fracture and UTI. The patient's condition has steadily improved. The son is present in the room and is happy with the patient's progress. The patient is eating well and comfortable. She needs to walk around some more. Her daily pain is being rated from 1 to 3 on a scale of 1 to 10. The problem is hypertension, systolic which is labile. PHYSICAL EXAMINATION: VITAL SIGNS: Temperature 97.6, pulse 60, respiratory rate 18, blood pressure 160/70, pulse ox 94% on room air. HEENT: Head normocephalic, atraumatic. Eyes: Extraocular muscles are intact. Pupils are equal, round and reactive to light and accommodation. Ears: No lesions. Nose appeared normal. Throat: No exudate or erythema. NECK: Supple. No JVD, no carotid bruit. No lymphadenopathy or thyromegaly. LUNGS: Decreased breath sounds but clear to auscultation. Percussion note normal. Chest symmetrical. HEART: S1, S2, no S3. No murmurs. No cyanosis or clubbing. No ascites. Pulses: Dorsalis pedis and posterior tibial pulses +1 to +2 bilaterally. ABDOMEN: Soft. Nontender. Bowel sounds active. No CVA tenderness. No mass felt. EXTREMITIES: No edema. Full range of motion of all extremities, equal. NEUROLOGIC: No focal deficit. Cranial nerves II through XII are grossly intact. No headache. No double vision. SKIN: Not dry. Intact. Turgor - normal. LYMPHATIC: No palpable lymph nodes/no lymphedema. MUSCULOSKELETAL: Normal joints with no swelling. Muscle tone is normal. LABS: Hemoglobin 11.4, hematocrit 36, WBC 4,200, normal differential. Creatinine 0.8, BUN 20. ASSESSMENT: 1. 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 The pain seems to be under control. 2. Hypertension. Will give Clonidine 0.1 twice a day for systolic more than 160. 3. Will put the patient on Zestril 20 mg b.i.d. The patient's systolic blood pressure fluctuates. TIME SPENT: More than 30 minutes. Plan and coordination of the patient's care discussed in the presence of nurse. COURTNEY
--- NOTE | 2020-12-19 09:10 | PN ---
DATE OF SERVICE: 12/17/20 SUBJECTIVE: 85-year-old white female hospitalized with fall with closed head injury, S4 fracture, possibility of UTI. The patient's condition has improved remarkably. She is feeling a lot better, eating much better. REVIEW OF SYSTEMS: CONSTITUTIONAL: No night sweats. No fatigue, malaise, lethargy. No fever or chills. HEENT: Eyes: No visual changes. No eye pain. No eye discharge. ENT: No runny nose. No epistaxis. No sinus pain. No sore throat. No odynophagia. No congestion. RESPIRATORY: No cough, no congestion. No hemoptysis. No shortness of breath. CARDIOVASCULAR: No angina symptoms. No CHF symptoms. No atypical chest pain for CAD. No palpitations. No PND. No orthopnea. GASTROINTESTINAL: No abdominal pain. No nausea or vomiting. No diarrhea or constipation. No hematemesis. No hematochezia. GENITOURINARY: No urgency. No frequency. No dysuria. No hematuria. No obstructive symptoms. No discharge. No pain. No significant abnormal bleeding. MUSCULOSKELETAL: No musculoskeletal pain; no joint swelling. NEUROLOGICAL: No headache. No neck pain. No syncope. No seizures. No dizziness. PSYCHIATRIC: Not anxious. No depression. No suicidal thoughts. No homicidal thoughts. SKIN: No rash. No lesions. No wounds. ENDOCRINE: No unexplained weight loss. No weight gain. HEMATOLOGIC/LYMPHATIC: No anemia. No purpura. No petechiae. No prolonged or excessive bleeding. No palpable lymph nodes. PHYSICAL EXAMINATION: VITAL SIGNS: Temperature 97.9, pulse 90, respiratory rate 18, blood pressure 104/70. Pulse ox 92%. HEENT: Head normocephalic, atraumatic. Eyes: Extraocular muscles are intact. Pupils are equal, round and reactive to light and accommodation. Ears: No lesions. Nose appeared normal. Throat: No exudate or erythema. NECK: Supple. No JVD, no carotid bruit. No lymphadenopathy or thyromegaly. LUNGS: Decreased breath sounds but clear to auscultation. Percussion note normal. Chest symmetrical. HEART: S1, S2, no S3. No murmurs. No cyanosis or clubbing. No ascites. Pulses: Dorsalis pedis and posterior tibial pulses +1 to +2 bilaterally. ABDOMEN: Soft. Nontender. Bowel sounds active. No CVA tenderness. No mass felt. EXTREMITIES: No edema. Full range of motion of all extremities, equal. NEUROLOGIC: No focal deficit. Cranial nerves II through XII are grossly intact. No headache. No double vision. SKIN: Not dry. Intact. Turgor - normal. LYMPHATIC: No palpable lymph nodes/no lymphedema. MUSCULOSKELETAL: Normal joints with no swelling. Muscle tone is normal. LABS: Hemoglobin 12, hematocrit 37, WBC 4,700, normal differential. Creatinine 0.7, BUN 24, potassium 4.3. SARS negative. ASSESSMENT: 1. Head injury with normal neurological findings. 2. S4 fracture, the pain is under control. 3. UTI 4. Hypertension - systolic blood pressure is labile. PLAN: 1. Likely the patient will be discharged home tomorrow. TIME SPENT: More than 30 minutes. Plan and coordination of the patient's care discussed in the presence of nurse. COURTNEY
--- NOTE | 2020-12-20 14:46 | DS ---
DATE OF SERVICE: 12/18/20 CODE STATUS: DO NOT INTUBATE; CPR ONLY FINAL DIAGNOSIS: 1. ACUTE S4 FRACTURE 2. CLOSED HEAD INJURY 3. S/P FALL 4. RIGHT SHOULDER PAIN 5. URINARY TRACT INFECTION, E-COLI 6. CAD 7. HYPERTENSION 8. HYPOTHYROIDISM 9. VERTIGO 10. HIGH LIPIDS 11. GERD 12. DEPRESSION 13. 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 PARTIAL HYSTERECTOMY 16. LEFT HIP FRACTURE WITH FIXATION 17. LEFT KNEE SURGERY X 4 18. BASAL CELL CARCINOMA EXCISION, NOSE 19. CAROTID ENDARTERECTOMY, RIGHT LAST VITALS Temp Pulse Resp BP Pulse Ox 98.3 F 86 16 95/65 93 L 12/18/20 05:28 12/18/20 08:00 12/18/20 05:28 12/18/20 05:32 12/18/20 05:28 DISCHARGE INSTRUCTIONS: 1. DISCHARGE: HOME, PATIENT DECLINES SHORT TERM PLACEMENT FOR THERAPY (DAUGHTER TRANSPORTING). 2. A HOME HEALTH REFERRAL HAS BE[facility] M[facility] [place], [place] REFERRAL IS FOR NURSING ASSESSMENT (MEDICATIONS, VITAL SIGNS, NUTRITION) AND PHYSICAL AND OCCUPATIONAL THERAPY EVALUATE/TREAT AND HOME ASSESSMENT. 3. AN APPOINTMENT IS SCHEDULED WITH DR. RUDD/YAMINI BOJORQUEZ APRN/LATRICE SOLIMAN APRN ON AT 2:15 PM. MEDICATIONS AT DISCHARGE: Atorvastatin Calcium (Atorvastatin Calcium 20 Mg Tablet) 40 mg PO DAILY [facility] Last Admin: 12/18/20 09:52 Dose: 40 mg Documented by: Clopidogrel Bisulfate (Clopidogrel Bisulfate 75 Mg Tablet) 75 mg PO DAILY [facility] Last Admin: 12/18/20 09:52 Dose: 75 mg Documented by: Docusate Sodium (Docusate Sodium 100 Mg Capsule) 100 mg PO BID [facility] (NEW RX) Last Admin: 12/18/20 09:52 Dose: 100 mg Documented by: Duloxetine HCl (Duloxetine Hcl 30 Mg Capsule.) 30 mg PO DAILY [facility] Last Admin: 12/18/20 09:52 Dose: 30 mg Documented by: Gabapentin (Gabapentin 100 Mg Capsule) 300 mg PO BEDTIME [facility] Last Admin: 12/17/20 20:49 Dose: 300 mg Documented by: Levofloxacin 250 MG PO DAILY FOR 5 DAYS (NEW RX) Last Admin: 12/18/20 09:47 Dose: 50 mls/hr Documented by: Levothyroxine Sodium (Levothyroxine Sodium 125 Mcg Tablet) 125 mcg PO QDAC [facility] (NEW RX) Last Admin: 12/18/20 05:51 Dose: 125 mcg Documented by: Lisinopril (Lisinopril 10 Mg Tablet) 20 mg PO BID [facility] (NEW RX) Last Admin: 12/18/20 09:53 Dose: 20 mg Documented by: Meclizine HCl (Meclizine Hcl 25 Mg Tablet) 25 mg PO BID [facility] (NEW RX) Last Admin: 12/18/20 09:53 Dose: 25 mg Documented by: Oxycodone/Acetaminophen (Oxycodone/Acetaminophen 5/325 Mg Tablet) 1 tab PO BID [facility] (NEW RX) Last Admin: 12/18/20 09:51 Dose: 1 tab Documented by: Pantoprazole Sodium (Pantoprazole Sodium 40 Mg Tablet.) 40 mg PO QDAC [facility] Last Admin: 12/18/20 05:52 Dose: 40 mg Documented by: Sertraline HCl (Sertraline Hcl 50 Mg Tablet) 50 mg PO DAILY [facility] Last Admin: 12/18/20 09:53 Dose: 50 mg Documented by: Tizanidine HCl (Tizanidine Hcl 4 Mg Tablet) 4 mg PO BID PRN PRN Reason: Spasms Last Admin: 12/14/20 22:35 Dose: 4 mg Documented by: NEW PRESCRIPTIONS: LEVAQUIN 250 MG DAILY FOR 5 DAYS SYNTHROID 125 MCG DAILY ZESTRIL 20 MG BID COLACE 100 MG BID PERCOCET 5-325 MG BID MECLIZINE 25 MG BID DISCONTINUED MEDICATIONS: TIROSINT (LEVOTHYROXINE 100 MCG) ZESTRIL (LISINOPRIL) DAILY DIET INSTRUCTIONS: REGULAR TOLERATED ACTIVITY: UP WITH CANE OR WALKER IN APARTMENT SMOKING: NOT APPLICABLE DISEASE SPECIFIC EDUCATION: HOME HEALTH FOR THERAPY MEDICATION [facility] HOSPITAL COURSE: This is an 85-year-old white female who presented to the emergency room after falling at home she hit her head. CT of the head was normal. She did have an acute S4 fracture. She was admitted for pain control. She mostly complained of right shoulder pain and she does have chronic arthritis. There was no acute problem. UA was also abnormal and positive for E. coli so she was also treated for urinary tract infection with Levaquin 250 mg IV daily. Her pain has been controlled with Oxycodone 5 mg twice a day. She had previously been on pain medicine at home for chronic pain but had stopped this about 2 to 3 months ago but she will go back home with a prescription. Risk of falls have been discussed with both patient and her family as she does live by herself and she refuses to go to the shelter for any sort of physical therapy. We have set up for her to have Home Health for PT and OT. She will be discharged with Levaquin 250 mg daily for the next 5 days. She also had some elevation of blood pressure while she was here. Her Lisinopril was increased to 20 mg p.o. b.i.d. and has since been controlled. We will send her home. Labs are stable. Hemoglobin 11.5, renal function is stable. She will followup with us in the office next week. She is to continue the Levaquin for five days. She has been given about two weeks supply of Percocet and again will followup with her in the office and they will start Home Health. TIME SPENT: More than 60 minutes. COURTNEY
--- NOTE | 2020-12-24 09:20 | DS ---
DATE OF SERVICE: 12/18/20 CODE STATUS: DO NOT INTUBATE; CPR ONLY FINAL DIAGNOSIS: 1. ACUTE S4 FRACTURE 2. CLOSED HEAD INJURY 3. S/P FALL 4. RIGHT SHOULDER PAIN 5. URINARY TRACT INFECTION, E-COLI 6. CAD 7. HYPERTENSION 8. HYPOTHYROIDISM 9. VERTIGO 10. HIGH LIPIDS 11. GERD 12. DEPRESSION 13. 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 PARTIAL HYSTERECTOMY 16. LEFT HIP FRACTURE WITH FIXATION 17. LEFT KNEE SURGERY X 4 18. BASAL CELL CARCINOMA EXCISION, NOSE 19. CAROTID ENDARTERECTOMY, RIGHT LAST VITALS Temp Pulse Resp BP Pulse Ox 98.3 F 86 16 95/65 93 L 12/18/20 05:28 12/18/20 08:00 12/18/20 05:28 12/18/20 05:32 12/18/20 05:28 DISCHARGE INSTRUCTIONS: 1. DISCHARGE: HOME, PATIENT DECLINES SHORT TERM PLACEMENT FOR THERAPY (DAUGHTER TRANSPORTING). 2. A HOME HEALTH REFERRAL HAS BEEN MADE TO [facility] IN [place], [place] REFERRAL IS FOR NURSING ASSESSMENT (MEDICATIONS, VITAL SIGNS, NUTRITION) AND PHYSICAL AND OCCUPATIONAL THERAPY EVALUATE/TREAT AND HOME ASSESSMENT 3. AN APPOINTMENT IS SCHEDULED WITH DR. RUDD/YAMINI BOJORQUEZ APRN/LATRICE SOLIMAN APRN ON AT 2:15 PM. MEDICATIONS AT DISCHARGE: Atorvastatin Calcium (Atorvastatin Calcium 20 Mg Tablet) 40 mg PO DAILY [facility] Last Admin: 12/18/20 09:52 Dose: 40 mg Documented by: Clopidogrel Bisulfate (Clopidogrel Bisulfate 75 Mg Tablet) 75 mg PO DAILY [facility] Last Admin: 12/18/20 09:52 Dose: 75 mg Documented by: Docusate Sodium (Docusate Sodium 100 Mg Capsule) 100 mg PO BID [facility] (NEW RX) Last Admin: 12/18/20 09:52 Dose: 100 mg Documented by: Duloxetine HCl (Duloxetine Hcl 30 Mg Capsule.) 30 mg PO DAILY [facility] Last Admin: 12/18/20 09:52 Dose: 30 mg Documented by: Gabapentin (Gabapentin 100 Mg Capsule) 300 mg PO BEDTIME [facility] Last Admin: 12/17/20 20:49 Dose: 300 mg Documented by: Levofloxacin 250 MG PO DAILY FOR 5 DAYS (NEW RX) Last Admin: 12/18/20 09:47 Dose: 50 mls/hr Documented by: Levothyroxine Sodium (Levothyroxine Sodium 125 Mcg Tablet) 125 mcg PO QDAC [facility] (NEW RX) Last Admin: 12/18/20 05:51 Dose: 125 mcg Documented by: Lisinopril (Lisinopril 10 Mg Tablet) 20 mg PO BID [facility] (NEW RX) Last Admin: 12/18/20 09:53 Dose: 20 mg Documented by: Meclizine HCl (Meclizine Hcl 25 Mg Tablet) 25 mg PO BID [facility] (NEW RX) Last Admin: 12/18/20 09:53 Dose: 25 mg Documented by: Oxycodone/Acetaminophen (Oxycodone/Acetaminophen 5/325 Mg Tablet) 1 tab PO BID [facility] (NEW RX) Last Admin: 12/18/20 09:51 Dose: 1 tab Documented by: Pantoprazole Sodium (Pantoprazole Sodium 40 Mg Tablet.) 40 mg PO QDAC [facility] Last Admin: 12/18/20 05:52 Dose: 40 mg Documented by: Sertraline HCl (Sertraline Hcl 50 Mg Tablet) 50 mg PO DAILY [facility] Last Admin: 12/18/20 09:53 Dose: 50 mg Documented by: Tizanidine HCl (Tizanidine Hcl 4 Mg Tablet) 4 mg PO BID PRN PRN Reason: Spasms Last Admin: 12/14/20 22:35 Dose: 4 mg Documented by: NEW PRESCRIPTIONS: LEVAQUIN 250 MG DAILY FOR 5 DAYS SYNTHROID 125 MCG DAILY ZESTRIL 20 MG BID COLACE 100 MG BID PERCOCET 5-325 MG BID MECLIZINE 25 MG BID DISCONTINUED MEDICATIONS: TIROSINT (LEVOTHYROXINE 100 MCG) ZESTRIL (LISINOPRIL) DAILY DIET INSTRUCTIONS: REGULAR TOLERATED ACTIVITY: UP WITH CANE OR WALKER IN APARTMENT SMOKING: NOT APPLICABLE DISEASE SPECIFIC EDUCATION: HOME HEALTH FOR THERAPY MEDICATION ACTIVITY HOSPITAL COURSE: 85-year-old white female hospitalized with fall. She had head injury. The patient's neurological status remained normal throughout the stay in the hospital. S4 fracture with the pain initially but was controlled with Oxycodone, Toradol. The patient was treated with Levaquin, improved remarkably. At the time of discharge she was up and about with help. No real pain noted. For fracture, Dr. Cisneros was contacted through the ER and he indicated that there was nothing to be done. S4 fracture is not going to cause neurological deficit or problems. The patient's appetite improved. Neurological status remained normal. At the time of discharge, the patient's hemoglobin was 12, hematocrit 37, WBC 4,710, normal differential. Creatinine 0.7, BUN 24, potassium 4.3. The patient was SARS negative. T4, TSH on admission were abnormal. Likely the patient is not taking Levothyroxine. Repeat TSH showed 20. T4 was 1.05 which was within normal limits. The patient's thyroid status will be followed as an outpatient. The patient had indicated to go home. She lives alone with the help of son. She is high risk for fall. She understands it, the family understands and she does not want any help. The son wanted her to go to long-term or assisted living. Condition at time of discharge is stable. TIME SPENT: More than 60 minutes. COURTNEY
--- NOTE | 2020-12-24 09:35 | PN ---
BILLING 12/11/20 ADMISSION DAY LEVEL 1 12/12/20 INTERMEDIATE 12/13/20 INTERMEDIATE 12/14/20 INTERMEDIATE 12/15/20 INTERMEDIATE 12/16/20 INTERMEDIATE 12/17/20 INTERMEDIATE 12/18/20 DISCHARGE MTDD
== END 2020-12-18 13:30 | disposition home or self-care (01) ==
LOC: ED 13:58 → MEDSURG A 19:54 → INTOOBSV 19:54 → MEDSURG A 20:15
PROVIDERS: ADMIT Internal Medicine; ATTEND Internal Medicine
DX: M25.511 Pain in right shoulder; F03.90 Unspecified dementia, unspecified severity, without behavioral disturbance, psychotic disturbance, mood disturbance, and anxiety; R53.1 Weakness; S09.90XA Unspecified injury of head, initial encounter; M54.5 Low back pain; R42 Dizziness and giddiness; Z20.822 Contact with and (suspected) exposure to COVID-19; M54.2 Cervicalgia; S32.10XA Unspecified fracture of sacrum, initial encounter for closed fracture; E03.9 Hypothyroidism, unspecified; D64.9 Anemia, unspecified; Z79.899 Other long term (current) drug therapy; I10 Essential (primary) hypertension; B96.20 Unspecified Escherichia coli [E. coli] as the cause of diseases classified elsewhere; N39.0 Urinary tract infection, site not specified

== ENCOUNTER 2023-05-27 10:22 | Observation (INO) ==
--- NOTE | 2023-05-27 10:35 | ED.PDOC ---
General ED Provider: Dr. KATEY ARCHULETA MD Chief Complaint: Extremity Swelling/Pain Stated Complaint: Patient with a history of atrial fibrillation, hypothyroidism, chronic kidney disease, and hypertension complains of increasing leg swelling over the past 4 weeks has a history of vertigo but states her dizziness is worse the past couple days. Denies headache, blurred vision, chest pain, dyspnea. Time Seen by Provider: 05/27/23 10:34 Mode of Arrival: Wheelchair Exam Limitations: Clinical condition Primary Care Provider: LUCIAN RUDD MD Nursing and Triage Documentation Reviewed and Agree: Yes What is Opioid Naive?: *Opioid Naive implies the patient is not already taking opioids or not chronically receiving opioids on a daily basis. *PRN dosing is not "usually" associated with tolerance. *Patients are at higher risk of over-sedation and aspiration. What is Opioid Tolerant?: *Opioid Tolerance implies less than the expected response to an opioid. *Acquired tolerance is defined by the patient taking 60mg of oral morphine daily (or equianalgesic dose of another opioid) for 1 week or more. *Often associated with chronic pain. *May take more than usual dose to achieve desired pain control. 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 - Squamous cell carcinoma of skin of nose (ICD-10) Weight loss, non-intentional R63.4 - Abnormal weight loss (ICD-10) Closed head injury S09.90XA - Unspecified injury of head, initial encounter (ICD-10) Closed sacral fracture S32.10XA - Unspecified fracture of sacrum, initial encounter for closed fracture (ICD-10) History of CVA (cerebrovascular accident) Z86.73 - Personal history of transient ischemic attack (TIA), and cerebral infarction without residual deficits (ICD-10) Impairment of balance R26.89 - Other abnormalities of gait and mobility (ICD-10) Acute vertigo with vomiting and inability to stand R42 - DIZZINESS AND GIDDINESS (ICD-10) R11.10 - Vomiting, unspecified (ICD-10) Laceration of fingers without complication S61.219A - LACERATION W/O FB OF UNSP FINGER W/O DAMAGE TO NAIL, INIT (ICD- 10) Family History FATHER Alzheimer's dementia Mother CHF (congestive heart failure) BROTHER Cancer Social History Smoking and tobacco status: Former smoker Tobacco: How many years used: 12 Alcohol intake: never Substance use type: does not use Special leela needs: No Agree to transfusion: Yes Adopted: No Caregiver/support person: No Foster care: No Housing: house Marital status: D Daycare: no daycare Number of children: 2 Financial difficulty paying for basics: not very hard service: No intermediate: No Current occupational status: retired History of recent travel: No Sexually active: No Current gender identity: female Seatbelt use: always Helmet use: No Drives intoxicated or rides with intoxicated driver messenger: No Water heater temperature set < 120 degrees: Yes Working smoke detector in home: Yes Fire extinguisher in home: Yes Carbon monoxide detector in home: Yes Surgical History History of right-sided carotid endarterectomy Z98.890 - Other specified postprocedural states (ICD-10) 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 - Presence of left artificial knee joint (ICD-10) History of tonsillectomy Z90.89 - Acquired absence of other organs (ICD-10) H/O: hysterectomy Z90.710 - Acquired absence of both cervix and uterus (ICD-10) History of hip surgery Z98.890 - Other specified postprocedural states (ICD-10) H/O knee surgery Z98.890 - Other specified postprocedural states (ICD-10) Female Reproductive History Menstrual Hx Hysterectomy: Yes Hx Tubal Ligation: No Physical Exam Physical Exam Appearance: Reports Well-appearing Ill-appearing: None Pain Distress: None Eyes: Reports KRISTA, EOMI and Conjunctiva clear ENT: Reports Ears normal and Oropharynx normal Neck: Supple Respiratory: Reports Airway patent, Breath sounds clear and Breath sounds equal Cardiovascular: Reports RRR, Pulses normal, No rub and No murmur (There is marked JVD at 30 degrees angle mandible.) GI/: Reports Soft, Nontender, No masses and Bowel sounds normal Musculoskeletal: Reports Normal strength and Edema (There is marked 2+ pitting edema bilateral lower extremities mid calf circumference of the right lower extremity is 34 cm to the mid calf circumference of left lower extremity is 35 cm, there is bilateral calf tenderness on the. Peripheral pulses 2+.) Skin: Reports Warm and Dry Neurological: Reports Sensation intact, Motor intact, Reflexes intact, Cranial nerves intact, Alert and Oriented Psychiatric: Reports Affect appropriate Interpretation EKG Interpretation EKG Interpretation By: ED Physician Time of EKG #1: 11:14 Rate: Normal Rhythm: Sinus Ectopy: None [place]: [place] ST Segment: Other Interpretation: Rate of 63 incomplete right bundle branch block Physician Notification Case Discussed Physician Notified: Discussed with Dr. Delilah Rudd Time of Notification: 13:30 Comments: Discussed results of all laboratory data, venous Doppler, head CT scan provide chest x-ray recommendations for admit to the hospitalist Physician Notified: [facility] Time of Notification: 13:35 Comments: With results of all laboratory data portable chest x-ray, head CT scan and venous Dopplers will admit to observation Critical Care Note Critical Care Note Total Critical Care Time (mins): 0 Course Course 05/27/23 11:09 05/27/23 11:09 Orders, Labs, Meds: Lab Review 05/27/23 05/27/23 05/27/23 11:09 11:44 12:22 WBC 3.84 L RBC 3.29 L Hgb 10.3 L Hct 33.1 L MCV 100.6 H MCH 31.3 H MCHC 31.1 L RDW Coeff of Mookie 14.0 Plt Count 153 Immature Gran % (Auto) 0.3 Neut % (Auto) 51.6 Lymph % (Auto) 35.9 Burke % (Auto) 7.3 Eos % (Auto) 3.9 Baso % (Auto) 1.0 Neut # (Auto) 2.0 Lymph # (Auto) 1.4 Burke # (Auto) 0.3 L Eos # (Auto) 0.2 Baso # (Auto) 0.0 Immature Gran # (Auto) 0.0 Sodium 137.1 Potassium 3.60 Chloride 106.9 Carbon Dioxide 25.4 Anion Gap 8.40 BUN 23.2 H Creatinine 0.70 Estimated GFR (MDRD) 79.00 BUN/Creatinine Ratio 33.14 Glucose 69.1 L Calcium 9.33 Magnesium 1.87 Total Bilirubin 0.47 AST 21.3 ALT 16.0 Alkaline Phosphatase 55.2 Troponin I 0.036 NT-Pro-B Natriuret Pep 1100 H Total Protein 5.78 L Albumin 3.31 L Globulin 2.47 Albumin/Globulin Ratio 1.34 TSH 0.387 L Urine Color Yellow Urine Clarity Cloudy Urine pH 6.0 Ur Specific Parker 1.025 Urine Protein Negative Urine Glucose (UA) Negative Urine Ketones Negative Urine Blood Trace-intact H Urine Nitrite Positive H Urine Bilirubin Negative Urine Urobilinogen 0.2 Ur Leukocyte Esterase 2+ H Urine Microscopic RBC 0-2 Urine Microscopic WBC 50-100 Ur Squamous Epith Cells Not Reportable Urine Bacteria 4+ SARS CoV-2 RNA Rapid CHINEDU Negative Orders Category Date Time Status EKG-(ED ONLY) Stat CARDIO 05/27/23 10:59 Completed Wearing Apparel Assembler [ED USER SUPPORT ANALYST APPLIED] .ONCE EMERGENCY 05/27/23 10:59 Active Saline Lock [ED IV/MEDIPORT/POWERPORT] .ONCE EMERGENCY 05/27/23 11:02 Active BLOOD CULTURE (ED ONLY) Stat LAB 05/27/23 12:39 Received CBC W/ AUTO DIFF Stat LAB 05/27/23 11:09 Completed CMP [COMPREHENSIVE METABOLIC PANEL] Stat LAB 05/27/23 11:09 Completed COVID [SARS COV-2 RNA RAPID CHINEDU] Stat LAB 05/27/23 12:22 Completed MAGNESIUM Stat LAB 05/27/23 11:09 Completed NT-PROBNP(ED) Stat LAB 05/27/23 11:09 Completed TROPONIN I Stat LAB 05/27/23 11:09 Completed TSH [THYROID STIMULATING HORMONE] Stat LAB 05/27/23 11:09 Completed URINALYSIS C & S IF INDICATED Stat LAB 05/27/23 11:44 Completed URINE CULTURE Stat LAB 05/27/23 11:44 Received 0.9 % Sodium Chloride [Saline Flush] Meds 05/27/23 11:02 Active 1 syr IVF PRN PRN Ceftriaxone/D5w 1 gm Premix [Rocephin 1 gm/50 ml D5w] Meds 05/27/23 12:02 Discontinued 1 gm in 50 ml IV ONCE Furosemide [Lasix] Meds 05/27/23 11:02 Discontinued 20 mg IVP ONCE STA CHEST, 1V AP ONLY Stat RADS 05/27/23 10:[address] HEAD W/O CONTRAST Stat RADS 05/27/23 10:59 Completed ULTRASOUND VENOUS SCAN DALILA LEGS [U/S VENOUS SCAN DALILA RADS 05/27/23 10:59 Completed LEGS] Stat Medications Generic Name Dose Route Start Last Admin Trade Name Freq PRN Reason Stop Dose Admin Sodium Chloride 1 syr 05/27/23 11:02 0.9% Sodium Chloride 10 Ml Disp.Syrin IVF PRN PRN To flush IV Discontinued Medications Generic Name Dose Route Start Last Admin Trade Name Freq PRN Reason Stop Dose Admin Furosemide 20 mg 05/27/23 11:02 05/27/23 11:12 Furosemide Inj 20 Mg/2 Ml Vial IVP 05/27/23 11:03 20 mg ONCE STA Administration CEFTRIAXONE/D5W 1 GM PREMIX 1 gm in 50 mls @ 100 mls/hr 05/27/23 12:02 05/27/23 12:37 Rocephin 1 Gm/50 Ml D5w IV 05/27/23 12:31 100 mls/hr ONCE ONE Administration Vital Signs: Temp Pulse Resp BP Pulse Ox 05/27/23 10:28 98.7 F 116 H 20 148/74 H 100 Discharge Plan Discharge Patient Disposition: PLACED OBSERVATION Discharge Problem: Acute right-sided CHF (congestive heart failure) Acute cystitis Qualifiers: Hematuria presence: without hematuria Qualified Code(s): N30.00 - Acute cystitis without hematuria Prescriptions: No Action levothyroxine [Synthroid] 150 mcg tablet 150 mcg PO QDAY Qty: 30 1RF Did you review [place] PROFESSOR OF SOCIAL WORK for ALL controlled substances?: Not Applicable ED Provider: KATEY ARCHULETA Condition: Stable Physician Progress Note: History obtained from family member as well as patient who complains of having increasing bilateral lower extremity swelling over the past month has history of chronic dizziness but states her dizziness is worse today. Denies dyspnea, headache, blurred vision, chest pain, palpitations, nausea vomiting. chest x-ray interpretation by myself shows no acute cardiopulmonary process. Patient given a saline lock followed by Lasix 20 mg IV Laboratory data CBC the white blood cell count is 3800, hemoglobin 10.3, hematocrit 31.1, platelet count 153,000. BMP is normal except glucose 69. Troponin 0.036, BNP 1100, Urinalysis with 4+ bacteria, nitrates 2+, leukocyte esterase 2+, and a WBC 50- 100 Portable chest x-ray interpretation by myself shows no acute cardiopulmonary process. Head CT scan without intravenous contrast interpretation by radiologist shows no acute intracranial abnormality Bilateral lower extremity venous Dopplers interpretation by radiologist is consistent with no evidence of DVT there is bilateral Gardner's cyst there is subcu edema noted. After 2 sets of blood cultures the patient was administered Rocephin 1 g IV piggyback EKG interpretation by myself consistent with normal sinus rhythm rate of 63 with incomplete right bundle branch block there is no prolongation of NV QT interval. Differential diagnosis: 1) right-sided congestive heart failure 2) acute cystitis Discussed with Dr. Vineet Rudd at 1335 for admission to the hospitalist Discussed with hospitalist Michael at 1345 for observation. []
[2023-05-27] MEDS: LASIX IVP STA (11:12)
[2023-05-27 11:13] LABS: EOSINOPHILS # (AUTO) 0.2 K/ul (0.0-0.7); EOSINOPHILS % (AUTO) 3.9 % (0.0-7.0); HEMATOCRIT 33.1 % (37.0-47.0); HEMOGLOBIN 10.3 g/dl (12.0-16.0); IMMATURE GRANULOCYTE % (AUTO) 0.3 % (0.0-5.0); LYMPHOCYTES # (AUTO) 1.4 K/uL (0.60-3.4); LYMPHOCYTES % (AUTO) 35.9 (10.0-50.0); MEAN CORPUSCULAR HEMOGLOBIN 31.3 pg (27.0-31.0); MEAN CORPUSCULAR HGB CONC 31.1 (31.8-35.4); MEAN CORPUSCULAR VOLUME 100.6 fl (81.0-99.0); MONOCYTES # (AUTO) 0.3 K/uL (0.4-2.0); MONOCYTES % (AUTO) 7.3 (0-10); NEUTROPHILS % (AUTO) 51.6 % (42.2-75.2); PLATELET COUNT 153 10^3/uL (140-440); RED BLOOD COUNT 3.29 10^6/ul (4.20-5.40); WHITE BLOOD COUNT 3.84 K/ul (4.6-10.2)
[2023-05-27 11:28] LABS: ALBUMIN 3.31 g/dL (3.5-5.0); ALKALINE PHOSPHATASE 55.2 U/L (53-141); ASPARTATE AMINO TRANSFERASE 21.3 U/L (14-36); BILIRUBIN,TOTAL 0.47 mg/dL (0.2-1.3); BLOOD UREA NITROGEN 23.2 mg/dL (7-17); CALCIUM 9.33 mg/dL (8.4-10.2); CARBON DIOXIDE 25.4 mmol/L (22-30.0); CHLORIDE 106.9 mmol/L (98-107); CREATININE 0.7 mg/dL (0.60-1.30); GLUCOSE 69.1 mg/dL (74-106); MAGNESIUM 1.87 mg/dL (1.6-2.3); POTASSIUM 3.6 mmol/L (3.5-5.1); SODIUM 137.1 mmol/L (134.5-145); TOTAL PROTEIN 5.78 g/dL (6.3-8.2)
[2023-05-27 11:40] LABS: TROPONIN I 0.036 ng/ml (0.0000-0.120)
[2023-05-27 11:49] LABS: BILIRUBIN,URINE Negative (NEGATIVE); CLARITY,URINE Cloudy (CLEAR); COLOR,URINE Yellow (YELLOW); GLUCOSE, URINE (UA) Negative (NEGATIVE); KETONES,URINE Negative (NEGATIVE); LEUKOCYTE ESTERASE ,URINE 2+ (NEGATIVE); NITRITE,URINE Positive (NEGATIVE); PROTEIN,URINE Negative (NEGATIVE); URINE, BLOOD Trace-intact (NEGATIVE); UROBILINOGEN,URINE 0.2 (0.2)
[2023-05-27 11:57] LABS: URINE RBC, MICROSCOPIC 0-2 (0-2); URINE WBC, MICROSCOPIC 50-100 (0-2)
[2023-05-27 11:58] LABS: BACTERIA,URINE 4+ (NOT PRESENT)
[2023-05-27 11:59] LABS: THYROID STIMULATING HORMONE 0.387 uIU/L (0.465-4.68)
--- NOTE | 2023-05-27 12:36 | CT ---
EXAMINATION: HEAD CT WITHOUT CONTRAST HISTORY: Increasing dizziness. TECHNIQUE: Noncontrast CT of the brain was performed with images acquired from skull base to vertex. 2-D coronal and sagittal reformatted images were obtained from the axial source images. CT Dose Reduction Techniques Performed: Yes. Contrast: None. COMPARISON: 12/11/2020. FINDINGS: Intraparenchymal hemorrhage: None. Parenchyma: Normal adams-white differentiation. No mass effect or midline shift. Moderate chronic mi crovascular ischemic changes noted in the periventricular and juxtacortical white matter and centrum semiovale . Ventricles/Extra-axial spaces and basal cisterns: The ventricles and cortical sulci are moderately pr ominent consistent with age related changes. There is no hydrocephalus . Paranasal sinuses and mastoid air cells: Visualized portions of paranasal sinuses are clear. Mastoid air cells are clear. Orbits: Normal visualized portions. Sella/Skull Base: Normal. Bones: Calvarium is normal. Scalp/Soft Tissues: Scalp and visualized soft tissues are normal. IMPRESSION: 1. No intracranial hemorrhage. 2. No acute findings. Atrophy and small vessel disease. All CT scans are performed using dose optimization techniques as appropriate to the performed exam an d include at least one of the following: Automated exposure control, adjustment of the mA and/or kV according t o size, and the use of iterative reconstruction technique.
[2023-05-27] MEDS: ROCEPHIN 1 GM/50 ML D5W 1 GM/50 ML BAG IV ONE (12:37)
[2023-05-27 12:40] LABS: SARS COV-2 RNA RAPID NAAT NEGATIVE (NEGATIVE)
--- NOTE | 2023-05-27 12:50 | US ---
EXAM: BILATERAL LOWER EXTREMITY DEEP VENOUS ULTRASOUND WITH DOPPLER IMAGING HISTORY: Marked swelling of the lower extremities with pain. TECHNIQUE: Arango-scale ultrasound with compression maneuvers and color and spectral Doppler ultrasound at rest and with augmentation of the veins was performed. Images were obtained and stored in a perm anent archive. COMPARISON: None FINDINGS: RIGHT LOWER EXTREMITY: Common Femoral Vein: Normal compression. Normal flow on color Doppler images. Normal response to augm entation. Deep Femoral Vein: Normal compression. Normal flow on color Doppler images. Normal response to augmen tation. Femoral Vein: Normal compression. Normal flow on color Doppler images. Normal response to augmentatio n. Popliteal Vein: Normal compression. Normal flow on color Doppler images. Normal response to augmentat ion. Peroneal Vein: Normal compression. Normal flow on color Doppler images. Posterior Tibial Vein: Normal compression. Normal flow on color Doppler images. Anterior Tibial Vein: Normal compression. Normal flow on color Doppler images. Greater Saphenous Vein (Superficial): Normal compression. Normal flow on color Doppler images. Other: No reflux. Mildly complex appearing predominately anechoic avascular structure in the right p opliteal fossa measuring 5.7 x 1.0 x 5.3 cm. Some in this edema below the knee. LEFT LOWER EXTREMITY: Common Femoral Vein: Normal compression. Normal flow on color Doppler images. Normal response to augm entation. Deep Femoral Vein: Normal compression. Normal flow on color Doppler images. Normal response to augmen tation. Femoral Vein: Normal compression. Normal flow on color Doppler images. Normal response to augmentatio n. Popliteal Vein: Normal compression. Normal flow on color Doppler images. Normal response to augmentat ion. Peroneal Vein: Normal compression. Normal flow on color Doppler images. Posterior Tibial Vein: Not visualized. Anterior Tibial Vein: Not visualized. Greater Saphenous Vein (Superficial): Normal compression. Normal flow on color Doppler images. Other: No reflux. Complex predominately anechoic avascular structure in the left popliteal fossa mode suring 5.0 x 1.4 x 2.8 cm. Subcutaneous edema at and below the knee. IMPRESSION: No deep venous thrombosis (DVT) in the bilateral lower extremities at the levels visualized. The left posterior tibial and anterior tibial veins were not visualized and not evaluated. No superficial venous thrombosis (SVT) in the bilateral lower extremities at the levels examined. Complex predominately anechoic avascular structures in the bilateral popliteal fossa as consistent wi th complex bilateral Gardner's cysts. Bilateral subcutaneous edema.
--- NOTE | 2023-05-27 13:52 | DI ---
EXAMINATION: SINGLE VIEW CHEST. HISTORY: Cough. COMPARISON: 12/11/2020. FINDINGS: Lines/Devices: Monitoring leads. Cardiomediastinal silhouette: Normal in size and configuration. Aortic arch atherosclerosis. Granu lomatous calcifications. 3 mm radiodensity projects over the aortic knob. Not previously seen. Lungs: No edema. No infiltrate or consolidation. Atelectatic change right costophrenic sulcus. Pr obable skin fold artifacts over the left thorax laterally. Pleural Effusion: None. Osseous structures: Levoscoliosis and degenerative changes in the thoracic spine. IMPRESSION: No acute cardiopulmonary abnormality. Chronic changes including atherosclerosis and old granulomatous disease. Right lateral basilar atelectasis. 3 mm radiodensity projects over the aortic knob. Not previously seen. May represent artifact child development director al to the patient. Correlate clinically.
[2023-05-27 15:08] VITALS: BMI 19.2
[2023-05-27] MEDS ORDERED: ANTIVERT PO PRN (16:18)
--- NOTE | 2023-05-27 16:18 | PCM ---
Date of Service Date Seen by Provider: 05/27/23 Admit Day/Time Admission Date: 05/27/23 Reason for Admission Chief Complaint: ACUTE CYSTITIS AND CHF Hospital Provider Hospital Provider: FRANSISCO LONG, [facility]ist [facility] Primary Care Physician Primary Care Physician: LUCIAN MANZANARES MD History of Present Illness History of Present Illness: 87 yo female presented to the ER with family from home with complaints of weakness, dizziness, and lower extremity swelling. Patient states that she has become dizzy upon standing over the last couple days and has developed swelling to her ankles as well. No previous history of CHF. Does not take any diuretics. Lives at home alone with daughter to assist when needed. Denies any shortness of breath, chest pain, N/V/D. Denies urinary symptoms. Case Discussed With Case Discussed With: Patient's case was discussed with the ER Physicians, Dr. 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 - Squamous cell carcinoma of skin of nose (ICD-10) Weight loss, non-intentional R63.4 - Abnormal weight loss (ICD-10) Closed head injury S09.90XA - Unspecified injury of head, initial encounter (ICD-10) Closed sacral fracture S32.10XA - Unspecified fracture of sacrum, initial encounter for closed fracture (ICD-10) History of CVA (cerebrovascular accident) Z86.73 - Personal history of transient ischemic attack (TIA), and cerebral infarction without residual deficits (ICD-10) Impairment of balance R26.89 - Other abnormalities of gait and mobility (ICD-10) Acute vertigo with vomiting and inability to stand R42 - DIZZINESS AND GIDDINESS (ICD-10) R11.10 - Vomiting, unspecified (ICD-10) Laceration of fingers without complication S61.219A - LACERATION W/O FB OF UNSP FINGER W/O DAMAGE TO NAIL, INIT (ICD- 10) Surgical History History of right-sided carotid endarterectomy Z98.890 - Other specified postprocedural states (ICD-10) 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 - Presence of left artificial knee joint (ICD-10) History of tonsillectomy Z90.89 - Acquired absence of other organs (ICD-10) H/O: hysterectomy Z90.710 - Acquired absence of both cervix and uterus (ICD-10) History of hip surgery Z98.890 - Other specified postprocedural states (ICD-10) H/O knee surgery Z98.890 - Other specified postprocedural states (ICD-10) Family History FATHER Alzheimer's dementia Mother CHF (congestive heart failure) BROTHER Cancer Social History Smoking and tobacco status: Former smoker Tobacco: How many years used: 12 Alcohol intake: never Substance use type: does not use Special leela needs: No Agree to transfusion: Yes Adopted: No Caregiver/support person: No Foster care: No Housing: house Marital status: D Daycare: no daycare Number of children: 2 Financial difficulty paying for basics: not very hard service: No MCC: No Current occupational status: retired History of recent travel: No Sexually active: No Current gender identity: female Seatbelt use: always Helmet use: No Drives intoxicated or rides with intoxicated trailer tank truck driver: No Water heater temperature set < 120 degrees: Yes Working smoke detector in home: Yes Fire extinguisher in home: Yes Carbon monoxide detector in home: Yes Allergies Allergies Allergy/AdvReac Type Severity Reaction Status Date / Time donepezil [From Aricept] AdvReac Unknown Nausea Verified 03/25/23 14:37 memantine [From Namenda] AdvReac Unknown Nausea Verified 03/25/23 14:37 celecoxib [From Celebrex] AdvReac Swelling Verified 03/25/23 14:37 tramadol HCl [From Ultram] AdvReac LIPS SWELL Verified 03/25/23 14:37 Current Medications Home Medications levothyroxine 150 mcg tablet (Synthroid) 150 mcg PO QDAY #30 tabs 05/11/23 [Rx Confirmed 05/27/23 Last Taken Unknown] Home Acetaminophen (Acetaminophen 325 Mg Tablet) 650 mg PO Q4H PRN PRN Reason: Mild Pain Furosemide (Furosemide Inj 20 Mg/2 Ml Vial) 20 mg IVP Q8HR MONICA CEFTRIAXONE/D5W 1 GM PREMIX (Rocephin 1 Gm/50 Ml D5w) 1 gm in 50 mls @ 75 mls/hr IV DAILY MONICA Stop: 05/31/23 08:59 Meclizine HCl (Meclizine Hcl 25 Mg Tablet) 25 mg PO QID PRN PRN Reason: Vertigo Sodium Chloride (0.9% Sodium Chloride 10 Ml Disp.Syrin) 1 syr IVF PRN PRN PRN Reason: To flush IV Discontinued Medications Furosemide (Furosemide Inj 20 Mg/2 Ml Vial) 20 mg IVP ONCE STA Stop: 05/27/23 11:03 Last Admin: 05/27/23 11:12 Dose: 20 mg CEFTRIAXONE/D5W 1 GM PREMIX (Rocephin 1 Gm/50 Ml D5w) 1 gm in 50 mls @ 100 mls/hr IV ONCE ONE Stop: 05/27/23 12:31 Last Admin: 05/27/23 12:37 Dose: 100 mls/hr Opioid Naive vs. Tolerant Does Patient Take Opioids?: No Is Patient Opioid Naive?: Yes What is Opioid Naive?: *Opioid Naive implies the patient is not already taking opioids or not chronically receiving opioids on a daily basis. *PRN dosing is not "usually" associated with tolerance. *Patients are at higher risk of over-sedation and aspiration. Is Patient Opioid Tolerant?: No What is Opioid Tolerant?: *Opioid Tolerance implies less than the expected response to an opioid. *Acquired tolerance is defined by the patient taking 60mg of oral morphine daily (or equianalgesic dose of another opioid) for 1 week or more. *Often associated with chronic pain. *May take more than usual dose to achieve desired pain control. Review of Systems Constitutional: Reports Weakness Head: Reports Normocephalic and Atraumatic Eyes: Reports No symptoms Ears: Reports No symptoms Nose: Reports No symptoms Mouth: Reports No symptoms Throat: Reports No symptoms Cardiovascular: Reports Edema (BLE) Respiratory: Reports No symptoms Gastrointestinal: Reports No symptoms Genitourinary: Reports No Symptoms Musculoskeletal: Reports No symptoms Endocrine: Reports No symptoms Hematology: Reports No symptoms Immunology: Reports No symptoms Neurological: Reports No symptoms Psychiatric: Reports No symptoms Physical examination Most Recent Vital Signs: Most Recent Vital Signs Temperature 98 F 05/27/23 14:47 Temperature Source Oral 05/27/23 14:47 Temperature Source Oral 05/27/23 10:28 Pulse Rate 68 05/27/23 14:47 Respiratory Rate 16 05/27/23 14:47 Blood Pressure 114/58 L 05/27/23 13:52 Blood Pressure Left Arm 129/56 05/27/23 14:47 Blood Pressure Position Supine 05/27/23 14:47 O2 Sat by Pulse Oximetry 97 05/27/23 14:47 Oxygen Delivery Method Room Air 05/27/23 15:09 Height 5 ft 6 in 05/27/23 14:47 Weight 119 lb 3.2 oz 05/27/23 14:47 Telemetry Heart Rate 72 12/18/20 07:00 Appearance: Positive No Apparent Distress, Thin and Cachectic Skin: Positive Warm and Good Turgor HEENT: Positive Normocephalic, Atraumatic and PERRLA Neck: Positive Supple and Midline Trachea Chest/Lungs: Positive Symmetrical With Equal Breath Sounds, Clear to Auscultation Bilaterally and Good Air Movement all 4 Lung [place] Heart: Positive RRR and Pulses Normal GI/: Positive Soft, Nontender, Bowel Sounds Normal and No Distention Musculoskeletal: Positive Not Examined Extremities: Positive Edema (+3 edema) and Intact Peripheral Pulses Labs This Visit Labs This Visit: Labs This Visit 05/27/23 05/27/23 05/27/23 11:09 11:44 12:22 WBC 3.84 L RBC 3.29 L Hgb 10.3 L Hct 33.1 L MCV 100.6 H MCH 31.3 H MCHC 31.1 L RDW Coeff of Mookie 14.0 Plt Count 153 Immature Gran % (Auto) 0.3 Neut % (Auto) 51.6 Lymph % (Auto) 35.9 [place] % (Auto) 7.3 Eos % (Auto) 3.9 Baso % (Auto) 1.0 Neut # (Auto) 2.0 Lymph # (Auto) 1.4 [place] # (Auto) 0.3 L Eos # (Auto) 0.2 Baso # (Auto) 0.0 Immature Gran # (Auto) 0.0 Sodium 137.1 Potassium 3.60 Chloride 106.9 Carbon Dioxide 25.4 Anion Gap 8.40 BUN 23.2 H Creatinine 0.70 Estimated GFR (MDRD) 79.00 BUN/Creatinine Ratio 33.14 Glucose 69.1 L Calcium 9.33 Magnesium 1.87 Total Bilirubin 0.47 AST 21.3 ALT 16.0 Alkaline Phosphatase 55.2 Troponin I 0.036 NT-Pro-B Natriuret Pep 1100 H Total Protein 5.78 L Albumin 3.31 L Globulin 2.47 Albumin/Globulin Ratio 1.34 TSH 0.387 L Urine Color Yellow Urine Clarity Cloudy Urine pH 6.0 Ur Specific [place] 1.025 Urine Protein Negative Urine Glucose (UA) Negative Urine Ketones Negative Urine Blood Trace-intact H Urine Nitrite Positive H Urine Bilirubin Negative Urine Urobilinogen 0.2 Ur Leukocyte Esterase 2+ H Urine Microscopic RBC 0-2 Urine Microscopic WBC 50-100 Ur Squamous Epith Cells Not Reportable Urine Bacteria 4+ SARS CoV-2 RNA Rapid CHINEDU Negative Imaging Imaging: EXAMINATION: SINGLE VIEW CHEST. HISTORY: Cough. COMPARISON: 12/11/2020. FINDINGS: Lines/Devices: Monitoring leads. Cardiomediastinal silhouette: Normal in size and configuration. Aortic arch atherosclerosis. Granulomatous calcifications. 3 mm radiodensity projects over the aortic knob. Not previously seen. Lungs: No edema. No infiltrate or consolidation. Atelectatic change right costophrenic sulcus. Probable skin fold artifacts over the left thorax laterally. Pleural Effusion: None. Osseous structures: Levoscoliosis and degenerative changes in the thoracic spine. IMPRESSION: No acute cardiopulmonary abnormality. Chronic changes including atherosclerosis and old granulomatous disease. Right lateral basilar atelectasis. 3 mm radiodensity projects over the aortic knob. Not previously seen. May represent artifact external to the patient. Correlate clinically. Review Statement Review Statement: I have independently reviewed and interpreted the labs/EKGs/imaging that were ordered by the ER provider. I have reviewed all outside records that are available currently in our EMR including imaging/notes/labs from previous visits. Plan Plan: 1. New onset CHF - echo ordered, lasix 20 mg Q8H IVP, I&O, daily weight, 1800 mL fluid restriction 2. UTI - urine culture pending, rocephin 1G Q24H 3. Hypothyroidism - chronic, continue home medications 4. Dizziness - orthostatic vitals Q8H, meclizine ordered prn Has multiple other chronic conditions but stopped taking all other home medications unless mentioned above. DVT Prophylaxis: Ambulation Time Spent: Greater than 80 minutes spent with patient, 50% of the time spent with this patient was devoted to counseling and coordination of care. Advanced Care Plannin minutes spent discussing advance care planning. Disposition: Admit to: Med/surg Observation Discussed Plan of Care with Dr. Jerry Manzanares. Medications Medication Orders: Medications Ordered Category Date Time Status 0.9 % Sodium Chloride [Saline Flush] Meds 05/27/23 11:02 Active 1 syr IVF PRN PRN Acetaminophen [Tylenol] Meds 05/27/23 15:26 Active 650 mg PO Q4H PRN Ceftriaxone/D5w 1 gm Premix [Rocephin 1 gm/50 ml D5w] Meds 05/28/23 09:00 Active 1 gm in 50 ml IV DAILY Furosemide [Lasix] Meds 05/27/23 21:00 Active 20 mg IVP Q8HR
[2023-05-27] MEDS: TYLENOL PO PRN (21:35)
[2023-05-27] MEDS: LASIX IVP SCH (21:36)
[2023-05-28 05:37] LABS: EOSINOPHILS # (AUTO) 0.2 K/ul (0.0-0.7); EOSINOPHILS % (AUTO) 4.1 % (0.0-7.0); HEMATOCRIT 33.9 % (37.0-47.0); HEMOGLOBIN 11.1 g/dl (12.0-16.0); IMMATURE GRANULOCYTE % (AUTO) 0.2 % (0.0-5.0); LYMPHOCYTES # (AUTO) 1.3 K/uL (0.60-3.4); LYMPHOCYTES % (AUTO) 30.9 (10.0-50.0); MEAN CORPUSCULAR HEMOGLOBIN 32.3 pg (27.0-31.0); MEAN CORPUSCULAR HGB CONC 32.7 (31.8-35.4); MEAN CORPUSCULAR VOLUME 98.5 fl (81.0-99.0); MONOCYTES # (AUTO) 0.3 K/uL (0.4-2.0); MONOCYTES % (AUTO) 6.8 (0-10); NEUTROPHILS # (AUTO) 2.3 K/ul (2.0-6.9); PLATELET COUNT 177 10^3/uL (140-440); RED BLOOD COUNT 3.44 10^6/ul (4.20-5.40); WHITE BLOOD COUNT 4.11 K/ul (4.6-10.2)
[2023-05-28 05:55] LABS: ALBUMIN 3.27 g/dL (3.5-5.0); ASPARTATE AMINO TRANSFERASE 23.2 U/L (14-36); BILIRUBIN,TOTAL 0.69 mg/dL (0.2-1.3); BLOOD UREA NITROGEN 22.4 mg/dL (7-17); CALCIUM 9.15 mg/dL (8.4-10.2); CARBON DIOXIDE 30.7 mmol/L (22-30.0); CHLORIDE 103.2 mmol/L (98-107); CREATININE 0.66 mg/dL (0.60-1.30); GLUCOSE 87.3 mg/dL (74-106); POTASSIUM 3.43 mmol/L (3.5-5.1); SODIUM 137.1 mmol/L (134.5-145); TOTAL PROTEIN 5.78 g/dL (6.3-8.2)
[2023-05-28] MEDS: ROCEPHIN 1 GM/50 ML D5W 1 GM/50 ML BAG IV SCH (09:21)
[2023-05-28] MEDS: K-DUR PO ONE (10:59)
--- NOTE | 2023-05-28 12:59 | ECHO2D ---
Date of Exam: 05/28/2023 Ordering Physician: - ANN ROBERTSON NP; PCP- DR. RUDD Room #: SCU 1 Reason for Echo: SWELLING, ACUTE RIGHT CONGESTIVE HEART FAILURE, HYPERTENSION, ATRIAL FIBRILLATION M-Mode Normal Adult Results LV Dimensions Normal Adult Results AoV Opening excursions >1.6 >1.6 LVEDD-base- 3.5-5.8 3.3 Ao root dimensions 2.0-3.7 3.7 LVESD-base- 3.1-4.6 L. Atrium dimensions 1.9-3.8 3.5 Post. Wall thickness 0.8-1.1 1.2 IV septum (thickness) 0.7-1.2 1.3 Post. Wall excursion 0.72-1.3 NORMAL Septal motion NORMAL Systolic motion R. Ventricular cavity 1.5-2.0 NORMAL LVEF 60% >70% Paradoxical septal wall motion NORMAL 2-D : 2-D M Mode Echocardiogram was performed using apical four chamber and left parasternal long and short axis views. Mitral, tricuspid and aortic valves appear to be normal. Contractility of the left ventricle seems to be normal, so is the cavity size. Left atrial cavity size and aortic root appear to be normal. There is no pericardial effusion. There is no thrombus noted in the left ventricle or left atrial cavity. COLOR FLOW: A WAVE > E WAVE ON MITRAL SPECTRAL FLOW M-MODE: MV: NORMAL AV: NORMAL TV: NORMAL PV: NORMAL CHAMBER SIZE: NORMAL WALL MOTION: NORMAL PERICARDIUM: NORMAL INTERPRETATION: 1. LEFT VENTRICULAR HYPERTROPHY. 2. EVIDENCE OF DIASTOLIC DYSFUNCTION. 3. NORMAL VALVES. 4. NORMAL LEFT VENTRICLE SIZE AND LEFT VENTRICULAR CONTRACTILITY. [facility]
--- NOTE | 2023-05-28 13:18 | PCM.PROG ---
Date/Time Seen Date Seen by Provider: 05/28/23 Time Seen by Provider: 08:30 Provider Provider[facility] FRANSISCO [facility] Chief Complaint Chief Complaint: ACUTE CYSTITIS AND CHF Subjective Subjective: Reports continued weakness and pain in legs. didn't sleep well last night Objective Appearance: Positive No Apparent Distress, Thin and Cachectic Chest/Lungs: Positive Symmetrical With Equal Breath Sounds, Clear to Auscultation Bilaterally and Good Air Movement all 4 Lung [place] Heart: Positive RRR and Murmur GI/: Positive Soft, Nontender and Bowel Sounds Normal Musculoskeletal: Positive Other (cellulitis to BLE, +2-3 pitting edema BLE) Neurological: Positive Sensation Intact, Motor intact, Reflexes Intact, Alert, Disorinted and Other (generalized weakness) Vital Signs Vital Signs: Vital Signs: Last 24 Hours 05/27/23 13:52 05/27/23 14:47 05/27/23 14:47 Temperature 98 F Temperature Source Oral Pulse Rate 68 68 Respiratory Rate 18 16 Blood Pressure 114/58 L Blood Pressure Mean Blood Pressure Left Arm 129/56 Blood Pressure Location Blood Pressure Position Supine O2 Sat by Pulse Oximetry 98 97 Oxygen Delivery Method Room Air Room Air Height 5 ft 6 in Weight 119 lb 3.2 oz Telemetry Type Telemetry Monitoring Irregular Telemetry Rate (Approximate) Telemetry Heart Rate EKG RI Interval EKG QRS Interval Telemetry Strip Reading 05/27/23 14:58 05/27/23 15:09 05/27/23 15:26 Temperature Temperature Source Pulse Rate Respiratory Rate Blood Pressure Blood Pressure Mean Blood Pressure Left Arm Blood Pressure Location Blood Pressure Position O2 Sat by Pulse Oximetry Oxygen Delivery Method Room Air Room Air Height Weight 119 lb 3.2 oz Telemetry Type Telemetry Monitoring Irregular Telemetry Rate (Approximate) Telemetry Heart Rate EKG RI Interval EKG QRS Interval Telemetry Strip Reading 05/27/23 16:43 05/27/23 17:28 05/27/23 18:00 Temperature 97.9 F Temperature Source Temporal Artery Scan Pulse Rate 62 Respiratory Rate 16 Blood Pressure 102/53 L Blood Pressure Mean 69 Blood Pressure Left Arm Blood Pressure Location Left Arm Blood Pressure Position Supine O2 Sat by Pulse Oximetry 99 Oxygen Delivery Method Room Air Room Air Room Air Height Weight Telemetry Type Telemetry Monitoring Irregular Telemetry Rate (Approximate) Telemetry Heart Rate EKG RI Interval EKG QRS Interval Telemetry Strip Reading 05/27/23 19:00 05/27/23 19:00 05/27/23 20:00 Temperature Temperature Source Pulse Rate Respiratory Rate Blood Pressure Blood Pressure Mean Blood Pressure Left Arm Blood Pressure Location Blood Pressure Position O2 Sat by Pulse Oximetry Oxygen Delivery Method Room Air Room Air Height Weight Telemetry Type Telemetry Monitoring Irregular Telemetry Rate (Approximate) Telemetry Heart Rate EKG RI Interval EKG QRS Interval Telemetry Strip Reading REFUSES 05/27/23 20:00 05/27/23 21:00 05/27/23 22:00 Temperature 99.0 F Temperature Source Temporal Artery Scan Pulse Rate 78 Respiratory Rate 16 Blood Pressure 151/87 H Blood Pressure Mean 108 Blood Pressure Left Arm Blood Pressure Location Left Arm Blood Pressure Position Supine O2 Sat by Pulse Oximetry 97 Oxygen Delivery Method Room Air Room Air Room Air Height Weight Telemetry Type Telemetry Monitoring Irregular Telemetry Rate (Approximate) Telemetry Heart Rate EKG RI Interval EKG QRS Interval Telemetry Strip Reading 05/27/23 22:00 05/27/23 23:00 05/27/23 23:00 Temperature Temperature Source Pulse Rate Respiratory Rate Blood Pressure Blood Pressure Mean Blood Pressure Left Arm Blood Pressure Location Blood Pressure Position O2 Sat by Pulse Oximetry Oxygen Delivery Method Room Air Room Air Room Air Height Weight Telemetry Type Telemetry Monitoring Irregular Telemetry Rate (Approximate) Telemetry Heart Rate EKG RI Interval EKG QRS Interval Telemetry Strip Reading 05/28/23 00:00 05/28/23 00:00 05/28/23 01:00 Temperature Temperature Source Pulse Rate Respiratory Rate Blood Pressure Blood Pressure Mean Blood Pressure Left Arm Blood Pressure Location Blood Pressure Position O2 Sat by Pulse Oximetry Oxygen Delivery Method Room Air Room Air Room Air Height Weight Telemetry Type Telemetry Monitoring Irregular Telemetry Rate (Approximate) Telemetry Heart Rate EKG RI Interval EKG QRS Interval Telemetry Strip Reading 05/28/23 01:00 05/28/23 01:00 05/28/23 01:54 Temperature Temperature Source Pulse Rate Respiratory Rate Blood Pressure Blood Pressure Mean Blood Pressure Left Arm Blood Pressure Location Blood Pressure Position O2 Sat by Pulse Oximetry Oxygen Delivery Method Room Air Room Air Height Weight Telemetry Type Telemetry Monitoring Irregular Telemetry Rate (Approximate) Telemetry Heart Rate EKG RI Interval EKG QRS Interval Telemetry Strip Reading refuses 05/28/23 01:55 05/28/23 03:00 05/28/23 04:00 Temperature 97.7 F Temperature Source Temporal Artery Scan Pulse Rate 72 Respiratory Rate 16 Blood Pressure 146/77 H Blood Pressure Mean 100 Blood Pressure Left Arm Blood Pressure Location Left Arm Blood Pressure Position Supine O2 Sat by Pulse Oximetry 96 Oxygen Delivery Method Room Air Room Air Room Air Height Weight Telemetry Type Telemetry Monitoring Irregular Telemetry Rate (Approximate) Telemetry Heart Rate EKG RI Interval EKG QRS Interval Telemetry Strip Reading 05/28/23 04:53 05/28/23 05:42 05/28/23 06:00 Temperature Temperature Source Pulse Rate Respiratory Rate Blood Pressure 113/68 Blood Pressure Mean Blood Pressure Left Arm Blood Pressure Location Right Arm Blood Pressure Position Standing O2 Sat by Pulse Oximetry Oxygen Delivery Method Room Air Room Air Height Weight Telemetry Type Telemetry Monitoring Irregular Telemetry Rate (Approximate) Telemetry Heart Rate EKG RI Interval EKG QRS Interval Telemetry Strip Reading 05/28/23 06:00 05/28/23 07:00 05/28/23 07:00 Temperature 97.8 F Temperature Source Temporal Artery Scan Pulse Rate 97 Respiratory Rate 16 Blood Pressure 114/72 Blood Pressure Mean 86 Blood Pressure Left Arm Blood Pressure Location Right Arm Blood Pressure Position Sitting O2 Sat by Pulse Oximetry 98 Oxygen Delivery Method Room Air Room Air Height Weight Telemetry Type Remote Telemetry Telemetry Monitoring Continues Irregular Telemetry Rate (Approximate) 70-80 BPM Telemetry Heart Rate 70 EKG RI Interval 0.16 EKG QRS Interval 0.16 H Telemetry Strip Reading Arrhythmia W/ BBB & PVCs 05/28/23 08:00 05/28/23 09:00 05/28/23 10:00 Temperature Temperature Source Pulse Rate Respiratory Rate Blood Pressure Blood Pressure Mean Blood Pressure Left Arm Blood Pressure Location Blood Pressure Position O2 Sat by Pulse Oximetry Oxygen Delivery Method Room Air Room Air Room Air Height Weight Telemetry Type Telemetry Monitoring Irregular Telemetry Rate (Approximate) Telemetry Heart Rate EKG RI Interval EKG QRS Interval Telemetry Strip Reading 05/28/23 10:00 Temperature 98.7 F Temperature Source Temporal Artery Scan Pulse Rate 80 Respiratory Rate 16 Blood Pressure 116/70 Blood Pressure Mean 85 Blood Pressure Left Arm Blood Pressure Location Left Arm Blood Pressure Position Supine O2 Sat by Pulse Oximetry 97 Oxygen Delivery Method Room Air Height Weight Telemetry Type Telemetry Monitoring Irregular Telemetry Rate (Approximate) Telemetry Heart Rate EKG RI Interval EKG QRS Interval Telemetry Strip Reading Lab Results Lab Results: Lab Results: Last 24 Hours 05/28/23 05:10 WBC 4.11 L RBC 3.44 L Hgb 11.1 L Hct 33.9 L MCV 98.5 MCH 32.3 H MCHC 32.7 RDW Coeff of Mookie 14.0 Plt Count 177 Immature Gran % (Auto) 0.2 Neut % (Auto) 57.0 Lymph % (Auto) 30.9 [place] % (Auto) 6.8 Eos % (Auto) 4.1 Baso % (Auto) 1.0 Neut # (Auto) 2.3 Lymph # (Auto) 1.3 [place] # (Auto) 0.3 L Eos # (Auto) 0.2 Baso # (Auto) 0.0 Immature Gran # (Auto) 0.0 Sodium 137.1 Potassium 3.43 L Chloride 103.2 Carbon Dioxide 30.7 H Anion Gap 6.63 BUN 22.4 H Creatinine 0.66 Estimated GFR (MDRD) 85.00 BUN/Creatinine Ratio 33.93 Glucose 87.3 Calcium 9.15 Total Bilirubin 0.69 AST 23.2 ALT 14.0 Alkaline Phosphatase 45.0 L Total Protein 5.78 L Albumin 3.27 L Globulin 2.51 Albumin/Globulin Ratio 1.30 Additional Comments Additional Comments: I have independently reviewed and interpreted the labs/EKGs/imaging ordered during this hospital stay. I have reviewed outside records that are available in our EMR that pertain to medical stay including imaging/notes/labs from previous visits. Active Medications Active Medications: Medications Generic Name Dose Route Start Last Admin Trade Name Freq PRN Reason Stop Dose Admin Acetaminophen 650 mg 05/27/23 15:26 05/27/23 21:35 Acetaminophen 325 Mg Tablet PO 650 mg Q4H PRN Administration Mild Pain Furosemide 20 mg 05/27/23 21:00 05/28/23 05:28 Furosemide Inj 20 Mg/2 Ml Vial IVP 20 mg Q8HR MONICA Administration CEFTRIAXONE/D5W 1 GM PREMIX 1 gm in 50 mls @ 75 mls/hr 05/28/23 09:00 05/28/23 09:21 Rocephin 1 Gm/50 Ml D5w IV 05/31/23 08:59 75 mls/hr DAILY MONICA Administration Meclizine HCl 25 mg 05/27/23 16:18 Meclizine Hcl 25 Mg Tablet PO QID PRN Vertigo Sodium Chloride 1 syr 05/27/23 11:02 05/28/23 09:22 0.9% Sodium Chloride 10 Ml Disp.Syrin IVF 1 syr PRN PRN Administration To flush IV Plan Plan: 1. New onset Diastolic CHF - echo completed today showing diastolic dysfunction with EF>70% at this time, continue lasix 20 mg Q8H IVP, I&O, daily weight, 1800 mL fluid restriction 2. UTI - urine culture pending, rocephin 1G Q24H 3. Cellulitis to BLE - treating with rocephin 1G Q24H, no open areas with drainage for culture 3. Hypothyroidism - chronic, continue home medications 4. Dizziness - orthostatic vitals Q8H, meclizine ordered prn Has multiple other chronic conditions but stopped taking all other home medications unless mentioned above. DVT Prophylaxis: Ambulation Review Statement Review Statement: I have personally discussed and reviewed the patient's visit/currently labs/imaging/decision making with Dr. Manzanares, my supervising attending. Greater that 50 minutes spent with patient, 50% of the time spent with this patient was devoted to counseling and coordination of care.
[2023-05-29 05:52] LABS: BASOPHILS % (AUTO) 0.8 % (0.0-3.0); EOSINOPHILS # (AUTO) 0.1 K/ul (0.0-0.7); EOSINOPHILS % (AUTO) 3.7 % (0.0-7.0); HEMATOCRIT 37.5 % (37.0-47.0); HEMOGLOBIN 11.5 g/dl (12.0-16.0); IMMATURE GRANULOCYTE % (AUTO) 0.3 % (0.0-5.0); LYMPHOCYTES # (AUTO) 1.1 K/uL (0.60-3.4); MEAN CORPUSCULAR HEMOGLOBIN 30.7 pg (27.0-31.0); MEAN CORPUSCULAR HGB CONC 30.7 (31.8-35.4); MEAN CORPUSCULAR VOLUME 100.3 fl (81.0-99.0); MONOCYTES # (AUTO) 0.2 K/uL (0.4-2.0); MONOCYTES % (AUTO) 6.1 (0-10); NEUTROPHILS # (AUTO) 2.3 K/ul (2.0-6.9); NEUTROPHILS % (AUTO) 60.1 % (42.2-75.2); PLATELET COUNT 188 10^3/uL (140-440); RDW COEFFICIENT OF VARIATION 13.8 % (11.6-14.8); RED BLOOD COUNT 3.74 10^6/ul (4.20-5.40); WHITE BLOOD COUNT 3.76 K/ul (4.6-10.2)
[2023-05-29 06:05] LABS: ALBUMIN 3.53 g/dL (3.5-5.0); ALKALINE PHOSPHATASE 45.7 U/L (53-141); ASPARTATE AMINO TRANSFERASE 22.3 U/L (14-36); BILIRUBIN,TOTAL 0.6 mg/dL (0.2-1.3); BLOOD UREA NITROGEN 28.2 mg/dL (7-17); CALCIUM 9.77 mg/dL (8.4-10.2); CARBON DIOXIDE 37.3 mmol/L (22-30.0); CHLORIDE 99.2 mmol/L (98-107); CREATININE 0.71 mg/dL (0.60-1.30); POTASSIUM 3.46 mmol/L (3.5-5.1); SODIUM 137.8 mmol/L (134.5-145); TOTAL PROTEIN 6.31 g/dL (6.3-8.2)
[2023-05-29] MEDS: K-DUR PO ONE (09:01)
[2023-05-29 10:28] VITALS: BP 113/74; PULSE 88; RESP 20; TEMP 98.5
--- NOTE | 2023-05-29 13:28 | DCSUM ---
Admission Date Admission Date: 05/27/23 Discharge Date Discharge Date: 05/29/23 Admission Diagnosis Admission Diagnosis: 1. New onset CHF 2. UTI 3. Hypothyroidism 4. Dizziness Discharge Diagnosis Discharge Diagnosis: 1. New onset Diastolic CHF - Improved 2. UTI - Improving 3. Cellulitis to BLE - Improving 4. Hypothyroidism - Chronic, stable 5. Dizziness - Resolved Hospital Provider Hospital Provider: FRANSISCO LONG, [facility] Primary Care Physician Primary Care Physician: LUCIAN RUDD MD Summary of History and Physical Summary of History and Physical: 87 yo female presented to the ER with family from home with complaints of weakness, dizziness, and lower extremity swelling. Patient states that she has become dizzy upon standing over the last couple days and has developed swelling to her ankles as well. No previous history of CHF. Does not take any diuretics. Lives at home alone with daughter to assist when needed. Denies any shortness of breath, chest pain, N/V/D. Denies urinary symptoms. Hospital Course Subjective: Patient has received lasix 20 mg Q8H IVP throughout stay. Echo completed and showed diastolic dysfunction with EF >70%. Weighed daily and was on 1800mL fluid restriction Found to have UTI. Urine culture positive for klebsiella pneumoniae. Treated with rocephin 1G Q24H IV. Sensitive per sensitivity. D/c with rx for keflex 500 mg BID Cellulitis from edema noted to BLE. Improved with rocephin, will further be covered with keflex. No open areas present. Only 1 home medication that the patient is taking and no changes made. Started on meclizine prn for dizziness. No orthostatic vital signs noted. Patient does not wish to take excessive amounts of medications. Started on spironolactone instead of lasix for CHF due to age and risk of worsening kidney function. Appearance: Pleasant, No Apparent Distress and Alert HEENT: MMM and Supple CVS: No Murmur Abdomen: Soft and Non-Tender Respiratory: No Dyspnea Extremities: No Edema Vital Signs: Most Recent Vital Signs Temperature 98.5 F 05/29/23 10:00 Temperature Source Temporal Artery Scan 05/29/23 10:00 Temperature Source Oral 05/27/23 10:28 Pulse Rate 88 05/29/23 10:00 Respiratory Rate 20 05/29/23 10:00 Blood Pressure 113/74 05/29/23 10:00 Blood Pressure Mean 87 05/29/23 10:00 Blood Pressure Left Arm 129/56 05/27/23 14:47 Blood Pressure Location Left Arm 05/29/23 10:00 Blood Pressure Position Supine 05/29/23 10:00 O2 Sat by Pulse Oximetry 95 05/29/23 10:00 Oxygen Delivery Method Room Air 05/29/23 12:00 Height 5 ft 6 in 05/27/23 14:47 Weight 118 lb 6 oz 05/28/23 21:17 Telemetry Type Remote Telemetry 05/29/23 07:00 Telemetry Monitoring Continues 05/28/23 19:00 Irregular Telemetry Rate (Approximate) 60-70 BPM 05/28/23 13:00 Telemetry Heart Rate 79 05/28/23 19:00 EKG PA Interval 0.12 05/28/23 19:00 EKG QRS Interval 0.10 05/28/23 19:00 Telemetry Strip Reading REFUSES 05/29/23 13:00 Lab Results Last 24 Hours: 05/29/23 05:30 WBC 3.76 L RBC 3.74 L Hgb 11.5 L Hct 37.5 MCV 100.3 H MCH 30.7 MCHC 30.7 L RDW Coeff of Mookie 13.8 Plt Count 188 Immature Gran % (Auto) 0.3 Neut % (Auto) 60.1 Lymph % (Auto) 29.0 [place] % (Auto) 6.1 Eos % (Auto) 3.7 Baso % (Auto) 0.8 Neut # (Auto) 2.3 Lymph # (Auto) 1.1 [place] # (Auto) 0.2 L Eos # (Auto) 0.1 Baso # (Auto) 0.0 Immature Gran # (Auto) 0.0 Sodium 137.8 Potassium 3.46 L Chloride 99.2 Carbon Dioxide 37.3 H Anion Gap 4.76 BUN 28.2 H Creatinine 0.71 Estimated GFR (MDRD) 78.00 BUN/Creatinine Ratio 39.71 Glucose 91.0 Calcium 9.77 Total Bilirubin 0.60 AST 22.3 ALT 14.0 Alkaline Phosphatase 45.7 L Total Protein 6.31 Albumin 3.53 Globulin 2.78 Albumin/Globulin Ratio 1.26 Discharge Instructions Discharge Planning: Discharge Planning > 40 minutes If patient is discharged with left ventricular systolic dysfunction: No Discharged with a beta ping? [] If no, why not? [] Discharged with an tala/arb? [] If no, why not? [] DX: DIASTOLIC HEART FAILURE, UTI, CELLULITIS RX: SPIRONOLACTONE, KEFLEX, MECLIZINE REGULAR DIET ACTIVITY TOLERATED PT/OT FOLLOW-UP WITH PCP NEXT WEEK Discharge Medications: Medications at Discharge (Home Meds & RX) levothyroxine 150 mcg tablet (Synthroid) 150 mcg PO QDAY #30 tabs 05/11/23 Discharge Plan Discharge Discharge Orders: Discharge Patient (ONCE); Ordered 05/29/23 Ordered By: ANN ROBERTSON Activity Restrictions/Additional Instructions: Regular diet Activity as tolerated PT/OT Follow-up with PCP next week Medications: Keflex 500 mg BID x 7 days Sprinolactone 25 mg daily Meclizine 25 mg qid PRN Instructions: Heart Failure (GEN), Urinary Tract Infection in Women (GEN) Patient Disposition: TRANSFER [facility] Prescriptions: New meclizine 25 mg Tablet 25 mg PO QID PRN (Reason: dizziness) Qty: 30 0RF spironolactone 25 mg tablet 25 mg PO DAILY Qty: 30 0RF cephalexin 500 mg capsule 500 mg PO BID Qty: 14 0RF Continued levothyroxine [Synthroid] 150 mcg tablet 150 mcg PO QDAY Qty: 30 1RF Did you review [place] for ALL controlled substances?: No Discussed opioids are addictive and Narcan is available by prescription or from pharmacy.: No Condition: Stable
== END 2023-05-29 14:40 ==
LOC: ED 10:22 → SCU 10:22
PROVIDERS: ADMIT Hospitalist; ATTEND Nurse Practitioner Family
DX: L03.115 Cellulitis of right lower limb; N30.00 Acute cystitis without hematuria; I50.31 Acute diastolic (congestive) heart failure; L03.116 Cellulitis of left lower limb; E03.9 Hypothyroidism, unspecified; R42 Dizziness and giddiness